=== PATIENT | female | born 1965 | race Caucasian/White ===

== ENCOUNTER → 2017-01-12 | Day surgery (SDC) | payer MEDICARE, MEDICAID ==
[2015-11-13 15:00] VITALS: BP 126/61
[~2017-01-12] MED LIST: ALOG1TAB8 PO; ALPR2TAB2 PO; CLIN150C14 PO; CLIN60LO2 TP; DAPA5TAB PO; DULO60CA6 PO; FAMO-63 PO; HYDR-2758 PO; IPRA4AER IH; LIDOCAINE 1%/EPI 1:100,000 20 ML VIAL. INJ ONE; LIDOCAINE 1%/EPI 1:100,000 20 ML VIAL. ONE; LISI10TA2 PO; ONDA4TAB10 SL; OXYC30TA PO; OXYC40TA21 PO
--- NOTE | 2017-01-12 12:13 | PDOC ---
SURGICAL PROGRESS NOTE Subjective Op Note: surgeon..............................................Clement Pre and post op diag...........................Mass groin groin just to the left and lateral to the labia on the left Anesthesia.........................................1%lidocaine with epi Procedure..........................................Exc mass pelvis/perineum Drains...............................................none fluids.................................................none Blood loss.........................................5cc condition...........................................satisfactory BONIFACIO MELCHOR MD Jan 12, 2017 12:13
--- NOTE | 2017-01-12 12:25 | PDOC1 ---
History and Physical Date of Admission Date of Admission DATE: 01/12/17 TIME: 12:17 History of Present Illness History of Present Illness Recurring mass swith pain perineum just to the left of the labia. Has gone on for months Past Medical History Cardiovascular: No pertinent hx, HTN Pulmonary: No pertinent hx, COPD, Other CENTRAL NERVOUS SYSTEM: Carpal Tunnel Syndrome Heme/Onc: No pertinent hx Psych: Anxiety, Bipolar, Depression Musculoskeletal: low back pain Endocrine: Diabetes Past Surgical History Past Surgical History: Cholecystectomy, , Hysterectomy, Other Current Medications Current Medications Current Medications Lidocaine/ Epinephrine (Xylocaine 1%-Epi 1:100,000) 20 ml STK-MED ONCE .ROUTE ; Start 01/12/17 at 10:42; Stop 01/12/17 at 10:43; Status DC Lidocaine/ Epinephrine (Xylocaine 1%-Epi 1:100,000) 20 ml STK-MED ONCE .ROUTE ; Start 01/12/17 at 11:26; Stop 01/12/17 at 11:27; Status DC Active Scripts Active Clindamycin Hcl 150 Mg Capsule 2 Cap PO QID 10 Days Reported Hydrocodone-Apap 5-325 (Hydrocodone Bit/Acetaminophen) 1 Each Tablet 1 Tab PO Q4HRS PRN LAST DOSE GIVEN: DATE: TIME: NEXT DOSE DUE: DATE: TIME: Kazano 12.5-1,000 Mg Tablet (Alogliptin Jose/Metformin Hcl) 1 Each Tablet 1 Each PO DAILY Farxiga (Dapagliflozin Propanediol) 5 Mg Tablet 5 Mg PO DAILY Oxycodone Hcl 30 Mg Tablet 1 Tab PO Q6HRS Combivent Respimat Inhal (Ipratropium/Albuterol Sulfate) 4 Gm Aer.w.adap 2 Inh IH QID Xanax (Alprazolam) 2 Mg Tablet 1 Tab PO TID Lisinopril 10 Mg Tablet 1 Tab PO DAILY Allergies Allergies: Coded Allergies: Penicillins (Verified Allergy, Severe, Anaphylaxis, 01/12/17) venom-wasp (Verified Allergy, Severe, Anaphylaxis, 01/12/17) morphine (Verified Allergy, Intermediate, Hives, 01/12/17) patient said she can't have this d/t decrease in saturations Physical Exam Physical Exam ?the is at this time a non infected mass 3-4 cm just lateral to the left labia. Not Bartholins. It has recurred on an off for months. d Lungs: Clear to auscultation Breasts: Normal Abdomen: Normal bowel sounds Male Genitals Exam: normal genitalia, normal prostate Rectal Exam: other PELVIC: Masses, Swelling Extremities: No clubbing, No cyanosis, No edema, Normal pulses, No tenderness/ swelling VTE Prophylaxis Ordered VTE Prophylaxis Devices: No VTE Pharmacological Prophylaxi: No BONIFACIO MELCHOR MD Jan 12, 2017 12:25
--- NOTE | 2017-01-12 12:59 | OP ---
DATE OF SURGERY: 01/12/2017 SURGEON: Júnior Melchor MD PREOPERATIVE DIAGNOSIS: Mass of the perineum/pelvis just to the left of the left labia. ANESTHESIA: 1% lidocaine with epinephrine. POSTOPERATIVE DIAGNOSIS: Mass of the perineum/pelvis just to the left of the left labia. PROCEDURE: Excision mass, perineum. TECHNIQUE: Under local anesthesia, using 1% Xylocaine, the area had been prepped with Betadine solution and draped in a routine fashion. With the patient services assistant holding the vulva over in a patient in a frogleg position, we made an incision following an oblique fashion over the mass. We carried it around in a fusiform fashion and what had been anesthetized. We then went into the skin and the mass, which was in the subcutaneous, was totally identified and totally removed using Metzenbaum scissors. We took a wide area around it. This was sent to pathology. The resultant defect did bleed and pressure was used to control the bleeding. A 4-0 Vicryl was used to close the deeper structures and an interrupted 5-0 subcuticular Vicryl was used to close the skin. The procedure was terminated as the dressing was applied. ESTIMATED BLOOD LOSS: Probably 4-5 mL. DRAINS: No drains were used. FLUIDS GIVEN: None. CONDITION OF THE PATIENT: Satisfactory as she is returned to the recovery room. JÚNIOR MELCHOR MD DR: OCTAVIO/isaiah JOB#: [id number] / [id number] JOSE
--- NOTE | 2017-01-12 12:59 | HP ---
ADMIT DATE: 01/12/2017 HISTORY OF PRESENT ILLNESS: The patient had hidradenitis, had it treated and had been doing well. Now, she has for the last 2-3 months a mass in the groin which swells up, gets infected, ruptures and then goes away. She states she puts cream on it from her primary care doctor and that sometimes helps, otherwise comes and goes. PAST MEDICAL HISTORY: Shows normal childhood diseases. She does have hypertension and also takes oral hypoglycemics for diabetes. SOCIAL HISTORY: She has been a drug user, but has not used any in 7 years though she does smoke 2 packs of cigarettes per day and uses no drugs and does not drink. ALLERGIES: SHE IS ALLERGIC TO PENICILLIN AND THE SURGERY. PAST SURGICAL HISTORY: Shows a cholecystectomy and a hysterectomy. She also has had various abscesses removed. The patient has 2 children and otherwise has been doing relatively well. PHYSICAL EXAMINATION: GENERAL: Shows an obese female in no acute distress. HEAD, EYES, NOSE AND THROAT: Grossly normal. CHEST AND HEART: Unremarkable at this point and with normal breath sounds and no murmurs, heaves or friction rubs. EXTREMITIES: Grossly normal. PELVIC: Not done, but she does have about a 1-2 cm mass just to the left of the vulva on the left. It is not infected at this point, but is definitely a mass there. EXTREMITIES: Grossly normal. IMPRESSION: 1. Diabetes. 2. Hypertension. 3. 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 BONIFACIO MELCHOR MD DR: OCTAVIO/isaiah JOB#: [id number] / [id number] JOSE
--- NOTE | 2017-01-13 17:16 | PATHOLOGY ---
PATHOLOGY REPORT * * * * * * * * FINAL DIAGNOSIS: Skin and subcutaneous tissue, left pelvic mass: - Epidermal inclusion cyst, with marked acute and chronic inflammation and surrounding fibrosis. COMMENT: There is no evidence of malignancy. (JPM:; 01/13/2017) REPORT ELECTRONICALLY SIGNED BY: Rancho Tucker M.D. DATE/TIME: 01/13/2017 17:15 * * * * * * * * GROSS PATHOLOGY: Received in formalin labeled "Billie Michelle mass pelvis" is a 3.8 x 2.5 x 1.3 cm partially disrupted portion of jaimes-brown skin and underlying yellow lobulated fibroadipose tissue. The resection margin is inked black. The specimen is serially sectioned to reveal a jaimes-white fibrotic cut surface without a definitive lesion or mass. Chef Teacher sections of the specimen are submitted in cassette A1. ([facility]; 01/12/2017) INITIAL CPT CODE(S): 17670 Professional services performed [place] [facility] [address] Technical services performed by [facility] at [address] [place] [address]. SPECIMEN(S) RECEIVED: A.Mass pelvis-left CLINICAL HISTORY: Mass-pelvis PATIENT: BILLIE MICHELLE /AGE: 5 1965 (Age: 51) PATIENT #: [id number] ALT CASE #: SPECIMEN COLLECTION DATE: 01/12/2017 SPECIMEN RECEIVED DATE: 01/12/2017 [facility] - [address] [place] [address] - PHONE: [phone] * * * END OF REPORT * * *
== END | disposition home or self-care (01) ==
LOC: SURG 10:21
PROVIDERS: ATTEND Specialist
DX: L72.0 Epidermal cyst (principal); E11.42 Type 2 diabetes mellitus with diabetic polyneuropathy; J44.9 Chronic obstructive pulmonary disease, unspecified; I10 Essential (primary) hypertension; E78.00 Pure hypercholesterolemia, unspecified; F41.9 Anxiety disorder, unspecified; F17.200 Nicotine dependence, unspecified, uncomplicated; F32.9 Major depressive disorder, single episode, unspecified; Z90.710 Acquired absence of both cervix and uterus; Z86.69 Personal history of other diseases of the nervous system and sense organs; Z72.0 Tobacco use; Z86.39 Personal history of other endocrine, nutritional and metabolic disease; Z88.6 Allergy status to analgesic agent; Z88.0 Allergy status to penicillin; Z91.048 Other nonmedicinal substance allergy status
CPT/HCPCS: 11424; J3490; 88304

== ENCOUNTER → 2017-10-05 | Day surgery (SDC) | payer MEDICARE, MEDICAID ==
[~2017-10-05] MED LIST changes: -ALOG1TAB8 PO; -ALPR2TAB2 PO; -CLIN150C14 PO; -CLIN60LO2 TP; -DAPA5TAB PO; -DULO60CA6 PO; -FAMO-63 PO; -HYDR-2758 PO; -IPRA4AER IH; +IV RINGERS,LACTATED 1000ML 1,000 ML IV; +LIDOCAINE 1% PF 2 ML VIAL. ID; -LIDOCAINE 1%/EPI 1:100,000 20 ML VIAL. INJ ONE; -LIDOCAINE 1%/EPI 1:100,000 20 ML VIAL. ONE; +LIDOCAINE 2% PF Vial for OR 5 ML VIAL.; -LISI10TA2 PO; +MIDAZOLAM HCL/PF 2 MG/2 ML VIAL. IV; -ONDA4TAB10 SL; -OXYC30TA PO; -OXYC40TA21 PO; +PROPOFOL 40 ML IV; +fentaNYL PF VIAL 100 MCG/2 ML VIAL IV
[2017-10-05] MEDS: IV RINGERS,LACTATED 1000ML 1,000 ML IV (08:56)
== END | disposition home or self-care (01) ==
LOC: SURG 08:11
DX: K64.0 First degree hemorrhoids (principal); K21.0 Gastro-esophageal reflux disease with esophagitis; I10 Essential (primary) hypertension; J44.9 Chronic obstructive pulmonary disease, unspecified; G47.33 Obstructive sleep apnea (adult) (pediatric); E78.00 Pure hypercholesterolemia, unspecified; E11.39 Type 2 diabetes mellitus with other diabetic ophthalmic complication; H40.9 Unspecified glaucoma; E11.42 Type 2 diabetes mellitus with diabetic polyneuropathy; Z79.899 Other long term (current) drug therapy; E66.9 Obesity, unspecified; Z90.710 Acquired absence of both cervix and uterus; Z90.49 Acquired absence of other specified parts of digestive tract; Z98.890 Other specified postprocedural states; Z88.0 Allergy status to penicillin; Z88.5 Allergy status to narcotic agent; Z91.038 Other insect allergy status; M19.90 Unspecified osteoarthritis, unspecified site; F20.9 Schizophrenia, unspecified; F31.9 Bipolar disorder, unspecified; F41.9 Anxiety disorder, unspecified; F17.200 Nicotine dependence, unspecified, uncomplicated; Z86.14 Personal history of Methicillin resistant Staphylococcus aureus infection; Z82.49 Family history of ischemic heart disease and other diseases of the circulatory system; Z79.84 Long term (current) use of oral hypoglycemic drugs
CPT/HCPCS: 43239; 45378; 88305; J2001; J2704

== ENCOUNTER → 2017-10-15 | Outpatient (CLI) | payer MEDICARE, MEDICAID ==
[2017-10-05 09:44] VITALS: BP 139/62
[~2017-10-15] MED LIST changes: +ALOG1TAB8 PO; +ALPR2TAB2 PO; +CLIN150C14 PO; +CLIN60LO2 TP; +DAPA5TAB PO; +DULO60CA6 PO; +FAMO-63 PO; +GABA-585 PO; +GLYB5TAB3 PO; +HYDR-2758 PO; +IPRA4AER IH; -IV RINGERS,LACTATED 1000ML 1,000 ML IV; -LIDOCAINE 1% PF 2 ML VIAL. ID; -LIDOCAINE 2% PF Vial for OR 5 ML VIAL.; +LISI10TA2 PO; +LOVA20TA2 PO; -MIDAZOLAM HCL/PF 2 MG/2 ML VIAL. IV; +ONDA4TAB10 SL; +OXYC10SY PO; +OXYC30TA PO; +OXYC40TA21 PO; -PROPOFOL 40 ML IV; +TIOT18CA IH; +VARE1TAB21 PO; +farxiga; -fentaNYL PF VIAL 100 MCG/2 ML VIAL IV
--- NOTE | 2017-10-19 08:32 | RAD ---
DATE: 10/15/2017 2:00 AM EXAM: MAMMO CHARLES SCREENING BILATERAL HISTORY: routine screening evaluation. COMPARISON: 09/17/2014 Bilateral CC and MLO views of the breasts were performed. Bilateral breast tomosynthesis was performed in CC and MLO projections. This study was interpreted with the benefit of Computerized Aided Detection (CAD ). Breast Density: The breast parenchyma is primarily fatty replaced. Breast parenchyma level density A. FINDINGS: No suspicious masses, microcalcifications or architectural distortion is present to suggest malignancy in either breast. The visualized axillae are unremarkable. IMPRESSION: No mammographic evidence of malignancy. BI-RADS CATEGORY: 1 NEGATIVE RECOMMENDED FOLLOW-UP: 12M 12 MONTH FOLLOW-UP Annual screening mammography is recommended, unless clinically indicated sooner based on symptoms or change in physical exam. PQRS compliance statement: Patient information was entered into a reminder system with a target due date for the next mammogram. Mammography is a sensitive method for finding small breast cancers, but it does not detect them all and is not a substitute for careful clinical examination. A negative mammogram does not negate a clinically suspicious finding and should not result in delay in biopsying a clinically suspicious abnormality. "Our facility is accredited by the [employer] Mammography Program." MTDD
== END | disposition home or self-care (01) ==
LOC: MAMMO 12:43
PROVIDERS: ATTEND Family Medicine
DX: Z12.31 Encounter for screening mammogram for malignant neoplasm of breast (principal); I12.9 Hypertensive chronic kidney disease with stage 1 through stage 4 chronic kidney disease, or unspecified chronic kidney disease; E11.22 Type 2 diabetes mellitus with diabetic chronic kidney disease; N18.3 Chronic kidney disease, stage 3 (moderate); E78.5 Hyperlipidemia, unspecified; E78.00 Pure hypercholesterolemia, unspecified; I25.10 Atherosclerotic heart disease of native coronary artery without angina pectoris; Z87.09 Personal history of other diseases of the respiratory system; Z87.891 Personal history of nicotine dependence; Z86.14 Personal history of Methicillin resistant Staphylococcus aureus infection; Z86.39 Personal history of other endocrine, nutritional and metabolic disease; Z86.69 Personal history of other diseases of the nervous system and sense organs; Z79.899 Other long term (current) drug therapy; Z90.49 Acquired absence of other specified parts of digestive tract; Z90.89 Acquired absence of other organs; Z88.0 Allergy status to penicillin; Z88.8 Allergy status to other drugs, medicaments and biological substances; Z88.5 Allergy status to narcotic agent; Z88.6 Allergy status to analgesic agent; Z84.1 Family history of disorders of kidney and ureter; Z83.3 Family history of diabetes mellitus
CPT/HCPCS: 77063; 77067

== ENCOUNTER → 2017-10-28 | Outpatient (CLI) | payer MEDICARE, MEDICAID ==
[2017-10-05 09:44] VITALS: BP 139/62
--- NOTE | 2017-10-28 13:53 | RAD ---
EXAM: Nuclear gastric emptying scan. HISTORY: Pain and bloating. COMPARISON: None. TECHNIQUE: Serial static images were obtained over the stomach following oral administration of 2.0 mCi of 99m-Tc sulfur colloid. FINDINGS: The stomach empties into the small bowel without evidence of reflux in the area of the esophagus. The estimated time for half emptying of gastric contents, i.e. 'gastric emptying time' is 190 minutes (normal is 66 +/- 22 minutes). There is 59% retained tracer activity within the stomach at one hour, 69% retained tracer activity within the stomach at 2 hours, 56% retained tracer activity within the stomach at 3 hours, and 17% retained tracer activity within the stomach at 4 hours. IMPRESSION: Delayed gastric emptying with a half-time of 190 minutes. Electronically signed by: Virginia Davenport MD (10/28/2017 1:50 PM) [id number]
== END | disposition home or self-care (01) ==
LOC: NM 07:52
PROVIDERS: ATTEND Internal Medicine Gastroenterology
DX: K30 Functional dyspepsia (principal); I12.9 Hypertensive chronic kidney disease with stage 1 through stage 4 chronic kidney disease, or unspecified chronic kidney disease; E11.22 Type 2 diabetes mellitus with diabetic chronic kidney disease; N18.3 Chronic kidney disease, stage 3 (moderate); E78.5 Hyperlipidemia, unspecified; E78.00 Pure hypercholesterolemia, unspecified; J44.9 Chronic obstructive pulmonary disease, unspecified; K21.9 Gastro-esophageal reflux disease without esophagitis; Z87.891 Personal history of nicotine dependence; Z87.09 Personal history of other diseases of the respiratory system; Z86.14 Personal history of Methicillin resistant Staphylococcus aureus infection; Z86.39 Personal history of other endocrine, nutritional and metabolic disease; Z86.69 Personal history of other diseases of the nervous system and sense organs; Z90.49 Acquired absence of other specified parts of digestive tract; Z90.89 Acquired absence of other organs; Z68.41 Body mass index [BMI] 40.0-44.9, adult; Z88.8 Allergy status to other drugs, medicaments and biological substances; Z88.5 Allergy status to narcotic agent; Z88.6 Allergy status to analgesic agent; Z88.0 Allergy status to penicillin; Z82.49 Family history of ischemic heart disease and other diseases of the circulatory system; Z84.1 Family history of disorders of kidney and ureter; Z83.3 Family history of diabetes mellitus
CPT/HCPCS: 78264; A9541

== ENCOUNTER → 2018-08-30 | Outpatient (CLI) | payer OTHER ==
[2017-10-05 09:44] VITALS: BP 139/62
[~2018-08-30] MED LIST changes: -HYDR-2758 PO; +HYDR-2761 PO; -OXYC30TA PO; +OXYC30TA3 PO
--- NOTE | 2018-08-30 18:00 | RAD ---
Examination: LUMBAR SPINE 2-3V History: Back pain since 1990 Comparison/Correlation: None Findings: Three-view lumbar spine x-ray exam was performed. Right upper quadrant surgical clips are present. Alignment of the lumbar spine is normal. L3-4 disc space narrowing is mild with significant endplate spurring and sclerosis. Vertebral body heights are mostly adequate with slight decrease at L4 suggested. No fracture or bony destruction. Impression: Degenerative changes primarily at L3-4. Electronically signed by: Arik Rosas MD (08/30/2018 5:57 PM) [facility]
== END | disposition home or self-care (01) ==
LOC: RAD 09:18
PROVIDERS: ATTEND Surgery
DX: M47.816 Spondylosis without myelopathy or radiculopathy, lumbar region (principal); M48.061 Spinal stenosis, lumbar region without neurogenic claudication; G95.89 Other specified diseases of spinal cord
CPT/HCPCS: 72100

== ENCOUNTER 2020-07-28 13:07 | Emergency (ER) | payer MEDICARE, MEDICAID ==
[~2020-07-28] VITALS: Ht 185.4 cm; Wt 200.0 kg
[~2020-07-28 13:07] MED LIST changes: -CLIN150C14 PO; +CLIN150C15 PO; +LISI10TA16 PO; -LISI10TA2 PO; -farxiga; +farxiga PO
--- NOTE | 2020-07-28 14:14 | RAD ---
3 view study of the left knee Clinical indications: Left knee pain. FINDINGS: There is a nondisplaced fracture of the proximal left fibular epiphysis. No dislocation or lytic process is seen. There is mild degenerative spurring and joint space narrowing of the medial ti biofemoral joint compartment. No significant left knee joint effusion is seen. Prominent traction spu r of the inferior pole of the patella is seen. IMPRESSION: Nondisplaced fracture of the proximal left fibular epiphysis. Electronically signed by: Sammy Amanda MD (07/28/2020 2:11 PM) [id number]
[2020-07-28 15:46] LABS: BASO # 0.1 x10^3/uL (0.0-0.2); BASO % 1 % (0-3); EOS # 0.2 x10^3/uL (0.0-0.7); EOS % 2 % (0-3); HEMATOCRIT 40.7 % (36.0-47.0); HEMOGLOBIN 13.6 g/dL (12.0-15.5); LYMPH # 1.5 x10^3/uL (1.0-4.8); LYMPH % 14 % (24-48); MEAN CORPUSCULAR HEMOGLOBIN 31 pg (25-35); MEAN CORPUSCULAR HGB CONC 34 g/dL (31-37); MEAN CORPUSCULAR VOLUME 91 fL (79-100); MONO # 0.9 x10^3/uL (0.0-1.1); MONO % 8 % (0-9); NEUT # 8.5 x10^3/uL (1.8-7.7); NEUT % 76 % (31-73); PLATELET COUNT 224 x10^3/uL (140-400); RED BLOOD COUNT 4.47 x10^6/uL (3.50-5.40); RED CELL DISTRIBUTION WIDTH 14.4 % (11.5-14.5); WHITE BLOOD COUNT 11.2 x10^3/uL (4.0-11.0)
[2020-07-28 15:57] LABS: CREATININE 2.2 mg/dL (0.6-1.0); GFR 23.1; POTASSIUM 5.6 mmol/L (3.5-5.1)
--- NOTE | 2020-07-28 16:54 | RAD ---
CT Head W/O Contrast: History: Reason: MECHANICAL FALL / Spl. Instructions: / History: Comparison: none Axial images were obtained without contrast. The cardenas and white matter appears normal and symmetrical for the patients age. There is no mass effe ct, extraaxial fluid collections or hydrocephalus. There is no gross bleed. There is no focal loss of cardenas-white matter distinction to suggest acute ischemia, i.e. stroke. Impression: No acute findings. End impression End impression CT C-Spine without contrast: Clinical History: Reason: MECHANICAL FALL / Spl. Instructions: / History: Technique: Axial helical images of the cervical spine were obtained without contrast, axial coronal and sagittal reconstruction was performed. Findings: There is no loss of vertebral body stature. There is no prevertebral soft tissue swelling. The vert ebral bodies are well aligned. The C1-C2 relationship is normal. The visualized osseous structures a ppear normal. Evaluation of the central canal is limited without contrast. There is multiple posterio r disc bulges resulting in flattening of the thecal sac. There does not appear to be gross flattening of the cervical cord. There is moderate narrowing of multiple neuroforamen. There is 2.5 cm nodule in the left lobe of the thyroid. Impression: 1. No evidence of fracture or malalignment of the C-spine. Clinical correlation suggested. 2. 2.5 cm nodule left lobe of the thyroid. Recommend follow-up ultrasound of the thyroid as an outpat ient. End impression PQRS Compliance Statement: One or more of the following individualized dose reduction techniques were utilized for this examinat ion: 1. Automated exposure control 2. Adjustment of the mA and/or kV according to patient size 3. Use of iterative reconstruction technique Electronically signed by: Brian Biggs III, MD (07/28/2020 4:52 PM) [facility]
--- NOTE | 2020-07-28 17:04 | EKG ---
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
[2020-07-28] MEDS ORDERED: LIDO1ADH78 TP (17:53)
--- NOTE | 2020-07-28 17:54 | PHYS DOC ---
Past Medical History Past Medical History: Anxiety, Arthritis, Asthma, CAD, Depression, Diabetes- Type II, Hypertension, MRSA, Schizophrenia, Other Additional Past Medical Histor: SLEEP APNEA, NEUROPATHY, CHRONIC BACK PROBLEMS Past Surgical History: Appendectomy, Cholecystectomy, , Hysterectomy, Other Additional Past Surgical Histo: SWEAT GLAND REMOVAL Smoking Status: Current Every Day Smoker Alcohol Use: Occasionally Drug Use: None General Adult EDM: Chief Complaint: MECHANICAL FALL HPI: HPI: 55-year-old female with multiple comorbidities including morbid obesity, presents the ED with complaints of nonradiating left knee pain that started yesterday while patient was at her sister's home. Patient states she was walking when she twisted her left knee and felt as if it "bent backwards." Reports knocking her head on the side of the wall but did not lose consciousness. Is not on any anticoagulants. Does not influence of any alcohol or drugs. States pain is worsened with weightbearing. Patient states she was able to drive home but pain has been unbearable today. Reports she took hydrocodone before coming in. Review of Systems: Review of Systems: Constitutional: Denies fever or chills. [] Eyes: Denies change in visual acuity. [] HENT: Denies nasal congestion or sore throat. [] Respiratory: Denies cough or shortness of breath. [] Cardiovascular: Denies chest pain or edema. [] GI: Denies abdominal pain, nausea, vomiting, bloody stools or diarrhea. [] : Denies dysuria, saddle anesthesia, urinary or bowel retention or incontinence Musculoskeletal: Denies back pain or CVA tenderness Integument: Denies rash or diaphoresis Neurologic: Denies headache, neck pain, focal weakness or sensory changes. [] Endocrine: Denies polyuria or polydipsia. [] Lymphatic: Denies swollen glands. [] Psychiatric: Denies depression or anxiety. [] Heart Score: C/O Chest Pain: No Risk Factors: Risk Factors: DM, Current or recent (<one month) smoker, HTN, HLP, family history of CAD, obesity. Risk Scores: Score 0 - 3: 2.5% MACE over next 6 weeks - Discharge Home Score 4 - 6: 20.3% MACE over next 6 weeks - Admit for Clinical Observation Score 7 - 10: 72.7% MACE over next 6 weeks - Early Invasive Strategies Allergies: Allergies: Allergies Coded Allergies Type Severity Reaction Last Updated Verified Penicillins Allergy Severe Anaphylaxis 01/12/17 Yes venom-wasp Allergy Severe Anaphylaxis 01/12/17 Yes morphine Allergy Intermediate Hives 01/12/17 Yes Physical Exam: PE: Constitutional: Obese, in no acute distress, very drowsy in ED but easily awakens-irritable when waking HENT: Normocephalic, atraumatic, dry mucous membranes Eyes: PERRLA, EOMI, conjunctiva normal, no discharge. Neck: Normal range of motion, supple, no JVD, no midline neck pain Cardiovascular: S1/2 present, regular rhythm Lungs & Thorax: Speaking in full sentences, bilateral equal chest rise, no tachypnea or increased work of breathing Abdomen: soft, no tenderness, no rigidity or guarding, no pain with pelvic rock Skin: Warm, dry, no erythema, no rash. [] Extremities: No tenderness, no cyanosis, no unilateral lower extremity edema, ANGELA left leg 0.74, equal DP and PT pulses, anterior and posterior palpable knee pain with intact brachial pulses bilaterally, no obvious deformity of the knee, no pain at the hip Neurologic: Alert and oriented X 3, normal motor function, normal sensory function, no focal deficits noted. [] Psychologic: Affect normal, judgement normal, mood normal. [] Current Patient Data: Labs: Laboratory Tests Test 07/28/20 15:35 White Blood Count 11.2 x10^3/uL (4.0-11.0) H Red Blood Count 4.47 x10^6/uL (3.50-5.40) Hemoglobin 13.6 g/dL (12.0-15.5) Hematocrit 40.7 % (36.0-47.0) Mean Corpuscular Volume 91 fL (79-100) Mean Corpuscular Hemoglobin 31 pg (25-35) Mean Corpuscular Hemoglobin Concent 34 g/dL (31-37) Red Cell Distribution Width 14.4 % (11.5-14.5) Platelet Count 224 x10^3/uL (140-400) Neutrophils (%) (Auto) 76 % (31-73) H Lymphocytes (%) (Auto) 14 % (24-48) L Monocytes (%) (Auto) 8 % (0-9) Eosinophils (%) (Auto) 2 % (0-3) Basophils (%) (Auto) 1 % (0-3) Neutrophils # (Auto) 8.5 x10^3/uL (1.8-7.7) H Lymphocytes # (Auto) 1.5 x10^3/uL (1.0-4.8) Monocytes # (Auto) 0.9 x10^3/uL (0.0-1.1) Eosinophils # (Auto) 0.2 x10^3/uL (0.0-0.7) Basophils # (Auto) 0.1 x10^3/uL (0.0-0.2) Sodium Level 140 mmol/L (136-145) Potassium Level 5.6 mmol/L (3.5-5.1) H Chloride Level 104 mmol/L (98-107) Carbon Dioxide Level 28 mmol/L (21-32) Anion Gap 8 (6-14) Blood Urea Nitrogen 58 mg/dL (7-20) H Creatinine 2.2 mg/dL (0.6-1.0) H Estimated GFR (Cockcroft-Gault) 23.1 Glucose Level 184 mg/dL (70-99) H Calcium Level 9.0 mg/dL (8.5-10.1) Laboratory Tests 07/28/20 15:35 Laboratory Tests 07/28/20 15:35 Vital Signs: Vital Signs Date Time Temp Pulse Resp B/P (MAP) Pulse Ox O2 Delivery O2 Flow Rate FiO2 07/28/20 13:10 97.9 71 16 129/63 (85) 94 Room Air 97.9 EKG: EKG: [] Radiology/Procedures: Radiology/Procedures: IMAGING REPORT Signed PATIENT: DANIELA MICHELLE MACCOUNT: [id number] : 1965 LOCATION: ER AGE: 55 SEX: F EXAM STATUS: REG ER ORD. PHYSICIAN: MANUEL JEAN DO REASON: MECHANICAL FALL PROCEDURE: CT HEAD AND CERVICAL SPINE WO CT Head W/O Contrast: History: Reason: MECHANICAL FALL / Spl. Instructions: / History: Comparison: none Axial images were obtained without contrast. The cardenas and white matter appears normal and symmetrical for the patients age. There is no mass effect, extraaxial fluid collections or hydrocephalus. There is no gross bleed. There is no focal loss of cardenas-white matter distinction to suggest acute ischemia, i.e. stroke. Impression: No acute findings. End impression End impression CT C-Spine without contrast: Clinical History: Reason: MECHANICAL FALL / Spl. Instructions: / History: Technique: Axial helical images of the cervical spine were obtained without con trast, axial coronal and sagittal reconstruction was performed. Findings: There is no loss of vertebral body stature. There is no prevertebral soft tissue swelling. The vertebral bodies are well aligned. The C1-C2 relationship is normal. The visualized osseous structures appear normal. Evaluation of the central canal is limited without contrast. There is multiple posterior disc bulges resulting in flattening of the thecal sac. There does not appear to be gross flattening of the cervical cord. There is moderate narrowing of multiple neuroforamen. There is 2.5 cm nodule in the left lobe of the thyroid. Impression: 1. No evidence of fracture or malalignment of the C-spine. Clinical correlation suggested. 2. 2.5 cm nodule left lobe of the thyroid. Recommend follow-up ultrasound of the thyroid as an outpatient. End impression PQRS Compliance Statement: One or more of the following individualized dose reduction techniques were utilized for this examination: 1. Automated exposure control 2. Adjustment of the mA and/or kV according to patient size 3. Use of iterative reconstruction technique Electronically signed by: Mariely Francis III, MD (07/28/2020 4:52 PM) [facility] DICTATED and SIGNED BY: MARIELY FRANCIS III, MD DATE: 07/28/20 [id number] IMAGING REPORT Signed PATIENT: DANIELA MICHELLE MACCOUNT: [id number] : 1965 LOCATION: ER AGE: 55 SEX: F EXAM STATUS: PRE ER ORD. PHYSICIAN: MANUEL JEAN DO REASON: left knee pain PROCEDURE: KNEE LEFT 3V 3 view study of the left knee Clinical indications: Left knee pain. FINDINGS: There is a nondisplaced fracture of the proximal left fibular epip hysis. No dislocation or lytic process is seen. There is mild degenerative spurring and joint space narrowing of the medial tibiofemoral joint compartment. No significant left knee joint effusion is seen. Prominent traction spur of the inferior pole of the patella is seen. IMPRESSION: Nondisplaced fracture of the proximal left fibular epiphysis. Electronically signed by: Bubba Amanda MD (07/28/2020 2:11 PM) [id number] DICTATED and SIGNED BY: BUBBA AMANDA MD DATE: 07/28/20 [id number] IMAGING REPORT Signed PATIENT: DANIELA MICHELLE MACCOUNT: [id number] : 1965 LOCATION: ER AGE: 55 SEX: F EXAM STATUS: REG ER ORD. PHYSICIAN: MANUEL JEAN DO REASON: pain behind knee -dislocation? JERARDO AWARE. NC PROCEDURE: DUPLEX LOWER EXT ARTERIAL LEFT Left Lower Extremity Venous Doppler Ultrasound History: Reason: pain behind knee -dislocation? JERARDO AWARE. NC / Spl. Instructions: / History: Comparison: None Procedure: Color flow, duplex, spectral analysis and 2D images are obtained with and without compression in the area of the common femoral vein, superficial femoral vein - femoral vein junction, main femoral vein (superficial femoral vein) and popliteal vein. Veins of the proximal calf are also imaged. Findings: There is normal duplex flow, color flow and compressibility of all visualized vein segments. No evidence of deep venous thrombus is present. There is limited visualization of the PTV the and peroneal vein due to large body habitus. Impression: No evidence of DVT. End impression Bilateral lower extremity arterial duplex Doppler examination spectral analysis Sonographic examination left lower shoulders performed and multiple static images were obtained. In addition color Doppler was applied as well as arterial waveform spectral analysis. There is normal triphasic waveform above the knee bilaterally. There is biphasic waveform below the knee. IMPRESSION: No evidence of hemodynamically significant stenosis. Electronically signed by: Mariely Francis III, MD (07/28/2020 5:56 PM) [facility] DICTATED and SIGNED BY: MARIELY FRANCIS III, MD DATE: 07/28/20 [id number] 0 IMAGING REPORT Signed PATIENT: DANIELA MICHELLE MACCOUNT: [id number] : 1965 LOCATION: ER AGE: 55 SEX: F EXAM STATUS: REG ER ORD. PHYSICIAN: MANUEL JEAN DO REASON: pain behind knee -dislocation? JERARDO AWARE. NC PROCEDURE: VENOUS LOWER EXTREMITY LEFT Left Lower Extremity Venous Doppler Ultrasound History: Reason: pain behind knee -dislocation? JERARDO AWARE. NC / Spl. Instructions: / History: Comparison: None Procedure: Color flow, duplex, spectral analysis and 2D images are obtained with and without compression in the area of the common femoral vein, superficial femoral vein - femoral vein junction, main femoral vein (superficial femoral vein) and popliteal vein. Veins of the proximal calf are also imaged. Findings: There is normal duplex flow, color flow and compressibility of all visualized vein segments. No evidence of deep venous thrombus is present. There is limited visualization of the PTV the and peroneal vein due to large body habitus. Impression: No evidence of DVT. End impression Bilateral lower extremity arterial duplex Doppler examination spectral analysis Sonographic examination left lower shoulders performed and multiple static images were obtained. In addition color Doppler was applied as well as arterial waveform spectral analysis. There is normal triphasic waveform above the knee bilaterally. There is biphasic waveform below the knee. IMPRESSION: No evidence of hemodynamically significant stenosis. Electronically signed by: Mariely Francis III, MD (07/28/2020 5:56 PM) [facility] DICTATED and SIGNED BY: MARIELY FRANCIS III, MD DATE: 07/28/20 [id number] 0 Course & Med Decision Making: Course & Med Decision Making Pertinent Labs and Imaging studies reviewed. (See chart for details) Concern for left proximal fibular head fracture in the setting of morbid obesity, no blunt trauma. Left knee immobilizer provided. Letter patch for pain. Will avoid any further opioids given patient's drowsy mentation ED. On reevaluation patient more alert, interactive and reports she feels well to return home. Will discharge home with strict ED return precautions were given for severe pain, neurologic deficits, skin color changes or repeat head injury. Encouraged urgent outpatient follow-up with PMD and orthopedic surgery for definitive management. Life-threatening processes were considered but are low suspicion at this time, given history, physical exam and ED workup. Pt was educated on all prescription medications and adverse effects. All patient's questions were answered and pt was stable at time of discharge. Life/limb-threatening differential includes but is not limited to, avascular necrosis, septic arthritis, malignancy, compartment syndrome, fracture/ligamentous injury/overuse, decompression sickness, seronegative spondyloarthropathies, trauma including dislocation/fracture, Lyme disease, lupus, arthritis differentials, gout/pseudogout or decompression sickness. I spoken with the patient and her caregivers. I explained the patient's condition, diagnoses and treatment plan based on the information available to me at this time. I have answered the patient and her caregiver's questions and addressed any concerns. The patient and her caregivers have a good understanding of patient's diagnosis, condition and treatment plan as can be expected at this point. Vital signs have been stable. Patient's condition is stable and appropriate for discharge from the emergency department. Patient will pursue further outpatient evaluation with primary care physician or other designated or consulting physician as outlined in the discharge instructions. The patient and/or caregivers are agreeable to this plan of care and follow-up instructions have been explained in detail. The patient and/or caregivers have received these instructions in written form and have expressed an understanding of the discharge instructions. The patient and/or caregivers are aware that any significant change of condition or worsening of symptoms should prompt immediate return to this or the closest emergency department or call to 911. Alivia Disclaimer: [employer] Disclaimer: This electronic medical record was generated, in whole or in part, using a voice recognition dictation system. Departure Departure Impression: Primary Impression: Fracture of proximal end of left fibula Additional Impression: PAD (peripheral artery disease) Disposition: 01 HOME / SELF CARE / HOMELESS Condition: STABLE Referrals: TERRY ALTMAN MD (PCP) Within 7 days for reevaluation Patient Instructions: Fibular Fracture with Rehab-SportsMed Additional Instructions: FOLLOW UP WITH ORTHOPEDICS: For definitive management of left fibular head fracture Orthopaedic Sports Medicine Orthopaedic Surgery [facility] [address] [place] [address] OR [facility] [address] [place] [address] EMERGENCY DEPARTMENT GENERAL DISCHARGE INSTRUCTIONS Thank you for coming to [facility] Emergency Department (ED) today and trusting us with you care. We trust that you had a positive experience in our Emergency Department. If you wish to speak to the department management, you may call the Director at [phone]. YOUR FOLLOW UP INSTRUCTIONS ARE FOLLOWS: 1. Do you have a private Doctor? If you do not have a private doctor, please ask for a resource list of physicians or clinics that may be able to assist you with follow up care. 2. The Emergency Physicain has interpreted your x-rays. The X-Ray specialist will also review them. If there is a change in the findings, you will be notified in 48 hours when at all possible. 3. A lab test or culture has been done, your results will be reviewed and you will be notified if you need a change in treatment. ADDITIONAL INSTRUCTIONS AND INFORMATION: 1. Your care today has been supervised by a physician who is specially trained in emergency care. Many problems require more than one evaluation for a complete diagnosis and treatment. We recommend that you schedule your follow up appointment as recommended to ensure complete treatment of you illness or injury. If you are unable to obtain follow up care and continue to have a problem, or if your condition worsens, we recommend that you return to the ED. 2. We are not able to safely determine your condition over the phone nor are we able to give sound medical advice over the phone. For these safety reasons, if you call for medical advice we will ask you to come to the ED for further evaluation. 3. If you have any questions regarding these discharge instructions please call the ED at [phone]. SAFETY INFORMATION: In the interest of safety, wellness, and injury prevention; we encourage you to wear your sealbelt, if you smoke; quite smoking, and we encourage family to use a protective helmet for bicycling and other sporting events that present an increased risk for head injury. IF YOUR SYMPTOMS WORSEN OR NEW SYMPTOMS DEVELOP, OR YOU HAVE CONCERNS ABOUT YOUR CONDITION; OR IF YOUR CONDITION WORSENS WHILE YOU ARE WAITING FOR YOUR FOLLOW UP APPOINTMENT; EITHER CONTACT YOUR PRIMARY CARE DOCTOR, THE PHYSICIAN WHOSE NAME AND NUMBER YOU WERE GIVEN, OR RETURN TO THE ED IMMEDIATELY. Scripts Lidocaine (Lido Jean Paul) 1 Each Adh..patch 1 EACH TP DAILY for 5 Days, #5 PATCH Apply 1 patch for 12 hours, remove for another 12 hours. May repeat, 1 patch per day as instructed above. Prov: MANUEL JEAN DO 07/28/20 MANUEL JEAN DO July 28, 2020 17:54
--- NOTE | 2020-07-28 17:58 | RAD ---
Left Lower Extremity Venous Doppler Ultrasound History: Reason: pain behind knee -dislocation? JERARDO AWARE. NC / Spl. Instructions: / History: Comparison: None Procedure: Color flow, duplex, spectral analysis and 2D images are obtained with and without compress ion in the area of the common femoral vein, superficial femoral vein - femoral vein junction, main fe moral vein (superficial femoral vein) and popliteal vein. Veins of the proximal calf are also imaged. Findings: There is normal duplex flow, color flow and compressibility of all visualized vein segments. No evide nce of deep venous thrombus is present. There is limited visualization of the PTV the and peroneal vein due to large body habitus. Impression: No evidence of DVT. End impression Bilateral lower extremity arterial duplex Doppler examination spectral analysis Sonographic examination left lower shoulders performed and multiple static images were obtained. In a ddition color Doppler was applied as well as arterial waveform spectral analysis. There is normal triphasic waveform above the knee bilaterally. There is biphasic waveform below the k nee. IMPRESSION: No evidence of hemodynamically significant stenosis. Electronically signed by: Brian Biggs III, MD (07/28/2020 5:56 PM) [facility]
[2020-07-28] MEDS ORDERED: LIDOCAINE (700MG/PATCH) PATCH. TD ONE (18:30)
[2020-07-28 19:45] VITALS: BP 164/88
[2020-07-29] MEDS ORDERED: CHOL500016 PO (07:36)
[2020-07-29] MEDS ORDERED: NYST15CR2 TP (07:36)
[2020-07-29] MEDS ORDERED: MUPI22OI2 TP (07:36)
[2020-07-29] MEDS ORDERED: DULO60CA6 PO (07:36)
[2020-07-29] MEDS ORDERED: NICO1PAT21 TP (07:36)
[2020-07-29] MEDS ORDERED: ALPR1TAB6 PO (07:36)
[2020-07-29] MEDS ORDERED: CLIN45GE TP (07:36)
[2020-07-29] MEDS ORDERED: OMEP40CA45 PO (07:36)
[2020-07-29] MEDS ORDERED: DULA0.75 SQ (23:30)
== END 2020-07-28 19:45 | disposition home or self-care (01) ==
LOC: ER 13:07
DX: S82.492A Other fracture of shaft of left fibula, initial encounter for closed fracture (principal); I73.9 Peripheral vascular disease, unspecified; J45.909 Unspecified asthma, uncomplicated; I10 Essential (primary) hypertension; F20.9 Schizophrenia, unspecified; Z86.14 Personal history of Methicillin resistant Staphylococcus aureus infection; I25.10 Atherosclerotic heart disease of native coronary artery without angina pectoris; E11.40 Type 2 diabetes mellitus with diabetic neuropathy, unspecified; G89.29 Other chronic pain; F17.200 Nicotine dependence, unspecified, uncomplicated; Z88.0 Allergy status to penicillin; Z88.5 Allergy status to narcotic agent; Z91.038 Other insect allergy status; W18.39XA Other fall on same level, initial encounter; Y93.89 Activity, other specified; Y92.89 Other specified places as the place of occurrence of the external cause; Y99.8 Other external cause status
CPT/HCPCS: 36415; 70450; 72125; 73562; 80048; 85025; 93005; 93926; 93971; 99285; P9612

== ENCOUNTER 2020-07-29 22:02 | Inpatient (IN) | payer MEDICARE, MEDICAID ==
[~2020-07-29] VITALS: Ht 185.4 cm; Wt 147.4 kg
[~2020-07-29 22:02] MED LIST changes: +ALPR1TAB6 PO; +CHOL500016 PO; +CLIN45GE TP; +LIDO1ADH78 TP; +MUPI22OI2 TP; +NICO1PAT21 TP; +NYST15CR2 TP; +OMEP40CA7 PO
[2020-07-29 22:30] VITALS: BP 134/74
--- NOTE | 2020-07-29 22:30 | NUR ---
Patient arrived per wheelchair to room 436. Patient to be readmitted to [facility]. Patient had left earlier today AMA. Patient was upset about not getting her pain and anxiety medication earlier today and she went to Dr. Cano's office after she left here and Dr. Cano wanted her to be readmitted. Patient needs to spend 3 midnight's in the hospital before she can be placed in a rehab unit for therapy. Admitting diagnosis: Left fibula fracture from 2 days ago. The fracture is non-surgical. Patient has a immobilizer on her left leg. Patient is alert and oriented x4. Patient is anxious. Patient c/o pain with movement of her left leg. Patient is able to stand and pivot to a sitting position to her bed using a walker. Patient is in no acute distress at this time.
[2020-07-29] MEDS ORDERED: NON FORMULARY ITEM (Tiotropium Bromide (Spiriva) 2 INH) IH SCH (23:30)
[2020-07-29] MEDS ORDERED: DULA0.75 SQ (23:30)
[2020-07-29] MEDS: ALPRAZolam 1 MG TABLET PO PRN (23:36)
[2020-07-30] MEDS: NICOTINE 21MG PATCH. TD SCH ×2 (00:06→11:11)
[2020-07-30] MEDS ORDERED: DEXTROSE 50% 25 GM / 50ML DISP.SYRIN. IV PRN (00:30)
[2020-07-30 03:00] VITALS: BP 161/69
[2020-07-30 05:37] LABS: BASO % 0 % (0-3); EOS # 0.2 x10^3/uL (0.0-0.7); EOS % 3 % (0-3); HEMOGLOBIN 12.4 g/dL (12.0-15.5); LYMPH # 2.8 x10^3/uL (1.0-4.8); LYMPH % 28 % (24-48); MEAN CORPUSCULAR HEMOGLOBIN 31 pg (25-35); MEAN CORPUSCULAR HGB CONC 34 g/dL (31-37); MEAN CORPUSCULAR VOLUME 92 fL (79-100); MONO # 0.9 x10^3/uL (0.0-1.1); MONO % 9 % (0-9); NEUT # 5.9 x10^3/uL (1.8-7.7); NEUT % 60 % (31-73); PLATELET COUNT 208 x10^3/uL (140-400); RED BLOOD COUNT 4.04 x10^6/uL (3.50-5.40); RED CELL DISTRIBUTION WIDTH 14.7 % (11.5-14.5); WHITE BLOOD COUNT 9.9 x10^3/uL (4.0-11.0)
[2020-07-30 07:00] VITALS: BP 146/68
[2020-07-30] MEDS: IPRATRPIUM/ALBUTEROL 0.5/2.5MG 3 ML NEBU. NEB SCH ×5 (07:42→20:43)
[2020-07-30] MEDS: INSULIN LISPRO 300 UNITS/3 ML VIAL. SQ SCH ×3 (08:00→17:14)
[2020-07-30] MEDS: FARXIGA PO SCH (09:00)
[2020-07-30] MEDS: [UNRECOGNIZED DRUG - OTHER] TP SCH (09:00)
[2020-07-30] MEDS: BENZOYL PEROX TP SCH (09:00)
[2020-07-30] MEDS: CLINDAMYCIN PHOS TP SCH (09:00)
[2020-07-30] MEDS: glyBURIDE 5 MG TABLET PO SCH (09:36)
[2020-07-30] MEDS: metFORMIN 500 MG TABLET PO SCH (09:36)
[2020-07-30] MEDS: PANTOPRAZOLE 40 MG TABLET.DR. PO SCH (09:36)
[2020-07-30] MEDS: GABAPENTIN 300 MG CAPSULE. PO SCH ×3 (09:37→21:23)
[2020-07-30] MEDS: DULoxetine HCL 30 MG CAPSULE.DR PO SCH (09:37)
[2020-07-30] MEDS: LISINOPRIL 20 MG TABLET PO SCH (09:37)
[2020-07-30] MEDS: NYSTATIN 100,000 UNIT/GM TOPICAL CREAM 15GM TUBE. TP SCH ×2 (09:38→21:27)
[2020-07-30] MEDS: CHOLECALCIFEROL (VITAMIN D3) 1,000 UNIT TABLET PO SCH (09:38)
[2020-07-30] MEDS: LINAGLIPTIN 5 MG TABLET PO SCH (09:38)
[2020-07-30] MEDS: TRIAMCINOLONE ACETONIDE 0.1% TOPICAL CREAM 15GM TUBE. TP SCH ×2 (09:39→21:26)
[2020-07-30] MEDS: MUPIROCIN 2 % NASAL OINTMENT 22GM TUBE. TP SCH ×3 (09:39→21:27)
[2020-07-30 10:20] VITALS: BP 157/62
--- NOTE | 2020-07-30 10:21 | NUR ---
SW following. Discussed with RN, pt from home alone, room air, ada diet. Pt left AMA yesterday. SW requested COVID for SNF placement. SW to discuss with pt RE SNF after therapy sees pt. SW will continue to follow.
[2020-07-30] MEDS: ALPRAZolam 1 MG TABLET PO PRN ×2 (11:03→21:23)
[2020-07-30 14:15] VITALS: BP 170/73
--- NOTE | 2020-07-30 16:31 | NUR ---
Wound Care Wound Type/Assessment: Pt seen for wound care consultation re: R leg cellulitis and ulceration. Right lower leg is reddened and warm, with an ulceration and some satelite puncture sites, wound bed is dusky red and sloughy. Treatment Recommendations/Plan: Medihoney gel, covered with Xeroform gauze and a foam dressing, change every 3 days. No other wounds noted on full skin inspection, but pt had reddened area in intergluteal cleft, Nystatin cream applied. Education provided: to pt re: POC. Offloading surface/device: n/a Recommended Referrals/Tests: n/a Discharge Recommendations for dressings: see treatment plan above, and pt would benefit from f/u in the [facility] after d/c.
[2020-07-30 19:00] VITALS: BP 148/80
[2020-07-30] MEDS: ATORVASTATIN CALCIUM 10 MG TABLET. PO SCH (21:23)
[2020-07-30] MEDS: SUCRALFATE 1 GM TABLET. PO SCH (21:55)
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
[2020-07-30 23:00] VITALS: BP 127/55
--- NOTE | 2020-07-31 00:20 | RAD ---
Examination: LEFT LOWER EXTREMITY - UNILATERAL VENOUS DOPPLER Technique: Ultrasound evaluation of the left lower extremity was performed from the groin to the uppe r calf with townsend scale, spectral and color doppler evaluation. Indication: Leg swelling Comparison: None Findings: There is normal venous flow and compressibility of left common femoral vein, femoral vein, popliteal vein, and visualized proximal calf veins. Impression: No evidence for deep vein thrombosis of left lower extremity from the level of the calf v eins to the groins. Electronically signed by: Issac Mcneil MD (07/31/2020 12:17 AM) [facility]
[2020-07-31 01:33] LABS: HEMOGLOBIN A1C 8.3 % (4.8-5.6)
[2020-07-31 03:00] VITALS: BP 149/89
[2020-07-31 05:50] LABS: ALBUMIN 2.9 g/dL (3.4-5.0); ALBUMIN/GLOBULIN RATIO 0.6 (1.0-1.7); CALCIUM 8.9 mg/dL (8.5-10.1); CREATININE 2.4 mg/dL (0.6-1.0); GFR 20.9; POTASSIUM 5.4 mmol/L (3.5-5.1); TOTAL BILIRUBIN 0.3 mg/dL (0.2-1.0); TOTAL PROTEIN 7.8 g/dL (6.4-8.2)
[2020-07-31] MEDS: SUCRALFATE 1 GM TABLET. PO SCH ×2 (05:54→17:07)
[2020-07-31] MEDS: PANTOPRAZOLE 40 MG TABLET.DR. PO SCH (05:54)
[2020-07-31 07:00] VITALS: BP 154/67
[2020-07-31] MEDS: IPRATRPIUM/ALBUTEROL 0.5/2.5MG 3 ML NEBU. NEB SCH (07:23)
[2020-07-31] MEDS: INSULIN LISPRO 300 UNITS/3 ML VIAL. SQ SCH ×3 (08:00→17:00)
[2020-07-31] MEDS: glyBURIDE 5 MG TABLET PO SCH (08:14)
[2020-07-31] MEDS: CHOLECALCIFEROL (VITAMIN D3) 1,000 UNIT TABLET PO SCH (08:15)
[2020-07-31] MEDS: DULoxetine HCL 30 MG CAPSULE.DR PO SCH (08:15)
[2020-07-31] MEDS: LISINOPRIL 20 MG TABLET PO SCH (08:15)
[2020-07-31] MEDS: metFORMIN 500 MG TABLET PO SCH (08:15)
[2020-07-31] MEDS: LINAGLIPTIN 5 MG TABLET PO SCH (08:15)
[2020-07-31] MEDS: GABAPENTIN 300 MG CAPSULE. PO SCH ×3 (08:15→19:20)
[2020-07-31] MEDS: NICOTINE 21MG PATCH. TD SCH (08:17)
[2020-07-31] MEDS: MUPIROCIN 2 % NASAL OINTMENT 22GM TUBE. TP SCH ×3 (08:19→20:08)
[2020-07-31] MEDS: TRIAMCINOLONE ACETONIDE 0.1% TOPICAL CREAM 15GM TUBE. TP SCH ×2 (08:19→20:08)
[2020-07-31] MEDS: FARXIGA PO SCH (08:20)
[2020-07-31] MEDS: NYSTATIN 100,000 UNIT/GM TOPICAL CREAM 15GM TUBE. TP SCH ×2 (08:20→20:09)
[2020-07-31] MEDS: BENZOYL PEROX TP SCH (08:20)
[2020-07-31] MEDS: [UNRECOGNIZED DRUG - OTHER] TP SCH (08:20)
[2020-07-31] MEDS: CLINDAMYCIN PHOS TP SCH (08:20)
[2020-07-31 09:46] LABS: PROTHROMBIN TIME PATIENT 12.4 SEC (11.7-14.0)
[2020-07-31 09:51] LABS: CHOLESTEROL/HDL RATIO 5.2
--- NOTE | 2020-07-31 10:23 | NUR ---
SW following. Discussed with RN, pt transferring to [address] [place] [address] due to being COVID-19 positive. PT recommending SNF, pt declined OT. SW unable to find and SNF facilities taking COVID positive at this time. SW will continue to follow.
[2020-07-31 11:00] VITALS: BP 120/50
--- NOTE | 2020-07-31 11:15 | NUR ---
Patient is covid postiive, notified Kym Pedroza nursing slot floor supervisor. Patient transferred to room 673 and report given to JOHN Kee.
[2020-07-31 15:00] VITALS: BP 97/48
[2020-07-31 19:00] VITALS: BP 120/56
[2020-07-31] MEDS: ATORVASTATIN CALCIUM 10 MG TABLET. PO SCH (19:20)
[2020-07-31] MEDS: ALPRAZolam 1 MG TABLET PO PRN (19:20)
[2020-07-31 23:22] VITALS: BP 124/55
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
[2020-08-01 03:17] VITALS: BP 122/62
[2020-08-01 07:30] VITALS: BP 173/78
[2020-08-01] MEDS: INSULIN LISPRO 300 UNITS/3 ML VIAL. SQ SCH ×3 (08:32→17:00)
[2020-08-01] MEDS: PANTOPRAZOLE 40 MG TABLET.DR. PO SCH (08:33)
[2020-08-01] MEDS: CHOLECALCIFEROL (VITAMIN D3) 1,000 UNIT TABLET PO SCH (08:33)
[2020-08-01] MEDS: metFORMIN 500 MG TABLET PO SCH (08:33)
[2020-08-01] MEDS: LINAGLIPTIN 5 MG TABLET PO SCH (08:33)
[2020-08-01] MEDS: SUCRALFATE 1 GM TABLET. PO SCH ×2 (08:33→16:30)
[2020-08-01] MEDS: glyBURIDE 5 MG TABLET PO SCH (08:33)
[2020-08-01] MEDS: GABAPENTIN 300 MG CAPSULE. PO SCH ×3 (08:33→21:00)
[2020-08-01] MEDS: DULoxetine HCL 30 MG CAPSULE.DR PO SCH (08:33)
[2020-08-01] MEDS: TRIAMCINOLONE ACETONIDE 0.1% TOPICAL CREAM 15GM TUBE. TP SCH ×2 (08:34→21:00)
[2020-08-01] MEDS: NICOTINE 21MG PATCH. TD SCH (08:34)
[2020-08-01] MEDS: MUPIROCIN 2 % NASAL OINTMENT 22GM TUBE. TP SCH ×3 (08:34→21:00)
[2020-08-01] MEDS: LISINOPRIL 20 MG TABLET PO SCH (08:34)
[2020-08-01] MEDS: NYSTATIN 100,000 UNIT/GM TOPICAL CREAM 15GM TUBE. TP SCH ×2 (08:34→21:00)
[2020-08-01] MEDS: BENZOYL PEROX TP SCH (08:39)
[2020-08-01] MEDS: CLINDAMYCIN PHOS TP SCH (08:39)
[2020-08-01] MEDS: [UNRECOGNIZED DRUG - OTHER] TP SCH (08:39)
[2020-08-01] MEDS: FARXIGA PO SCH (08:39)
[2020-08-01 11:30] VITALS: BP 142/64
[2020-08-01 15:44] VITALS: BP 116/77
--- NOTE | 2020-08-01 16:13 | NUR ---
Rapid response called on patient at 1551. Dr. Browne was just walking out of patient's room, so rapid response was cancelled.
[2020-08-01 16:15] LABS: BASE EXCESS ABG -6 mmol/L (-3-3); HCO3 ABG 25 mmol/L (21-28); PO2 ABG 105 mmHg (75-108); SAT O2 ABG 97 % (92-99)
[2020-08-01 16:20] LABS: FIO2 ABG 100% NRBM; PCO2 ABG 77 mmHg (35-46)
--- NOTE | 2020-08-01 17:59 | NUR ---
due to patient being on Bipap and very out of it, dinner Carafate dose was held. This RN did not feel like the patient was alert enough to take anything orally. Dr. Crockett was called at 1745 and updated on the patients status. No orders given. Doctor will be on unit this evening to re-evaluate patient status.
[2020-08-01 19:00] VITALS: BP 146/61
[2020-08-01 20:27] LABS: BASE EXCESS ABG -5 mmol/L (-3-3); HCO3 ABG 24 mmol/L (21-28); PO2 ABG 73 mmHg (75-108); SAT O2 ABG 92 % (92-99)
[2020-08-01] MEDS: ATORVASTATIN CALCIUM 10 MG TABLET. PO SCH (21:00)
[2020-08-01 23:00] VITALS: BP 133/56
[2020-08-02 00:51] LABS: PCO2 ABG 65 mmHg (35-46)
[2020-08-02 00:52] LABS: FIO2 ABG 35
[2020-08-02 03:00] VITALS: BP 119/86
[2020-08-02 07:00] VITALS: BP 143/60
[2020-08-02] MEDS: SUCRALFATE 1 GM TABLET. PO SCH ×2 (07:30→16:30)
[2020-08-02] MEDS: PANTOPRAZOLE 40 MG TABLET.DR. PO SCH (07:30)
[2020-08-02 07:34] LABS: BASE EXCESS ABG -5 mmol/L (-3-3); HCO3 ABG 24 mmol/L (21-28); PO2 ABG 72 mmHg (75-108); SAT O2 ABG 92 % (92-99)
[2020-08-02 07:36] LABS: PCO2 ABG 68 mmHg (35-46)
[2020-08-02 07:37] LABS: FIO2 ABG 35
[2020-08-02] MEDS: metFORMIN 500 MG TABLET PO SCH (08:00)
[2020-08-02] MEDS: INSULIN LISPRO 300 UNITS/3 ML VIAL. SQ SCH ×3 (08:00→17:00)
[2020-08-02] MEDS: glyBURIDE 5 MG TABLET PO SCH (08:00)
[2020-08-02] MEDS: GABAPENTIN 300 MG CAPSULE. PO SCH ×3 (08:26→21:00)
[2020-08-02] MEDS: DULoxetine HCL 30 MG CAPSULE.DR PO SCH (08:26)
[2020-08-02] MEDS: LINAGLIPTIN 5 MG TABLET PO SCH (08:27)
[2020-08-02] MEDS: LISINOPRIL 20 MG TABLET PO SCH (08:27)
[2020-08-02] MEDS: CHOLECALCIFEROL (VITAMIN D3) 1,000 UNIT TABLET PO SCH (08:27)
[2020-08-02] MEDS: NICOTINE 21MG PATCH. TD SCH (08:27)
--- NOTE | 2020-08-02 08:36 | PDOC ---
PULMONARY PROGRESS NOTES DATE: 08/02/20 TIME: 08:36 Vitals Vital Signs Date Time Temp Pulse Resp B/P (MAP) Pulse Ox O2 Delivery O2 Flow Rate FiO2 08/02/20 07:25 94 08/02/20 07:00 98.2 90 22 143/60 (87) BiPAP/CPAP 98.2 08/01/20 15:44 2.0 General: Alert Lungs: Clear Cardiovascular: S1, S2 Abdomen: Soft Labs Laboratory Tests Test 07/31/20 11:54 07/31/20 16:56 07/31/20 20:14 08/01/20 07:53 Glucose (Fingerstick) 130 mg/dL (70-99) 106 mg/dL (70-99) 141 mg/dL (70-99) 209 mg/dL (70-99) Test 08/01/20 12:16 08/01/20 15:34 08/01/20 15:55 08/01/20 17:11 Glucose (Fingerstick) 89 mg/dL (70-99) 123 mg/dL (70-99) 126 mg/dL (70-99) O2 Saturation 97 % (92-99) Arterial Blood pH 7.13 (7.35-7.45) Arterial Blood pCO2 at Patient Temp 77 mmHg (35-46) Arterial Blood pO2 at Patient Temp 105 mmHg (75-108) Arterial Blood HCO3 25 mmol/L (21-28) Arterial Blood Base Excess -6 mmol/L (-3-3) FiO2 100% nrbm Test 08/01/20 20:00 08/01/20 21:22 08/02/20 07:20 08/02/20 07:31 O2 Saturation 92 % (92-99) 92 % (92-99) Arterial Blood pH 7.20 (7.35-7.45) 7.17 (7.35-7.45) Arterial Blood pCO2 at Patient Temp 65 mmHg (35-46) 68 mmHg (35-46) Arterial Blood pO2 at Patient Temp 73 mmHg (75-108) 72 mmHg (75-108) Arterial Blood pO2 (Temp corrected) mmHg Arterial Blood HCO3 24 mmol/L (21-28) 24 mmol/L (21-28) Arterial Blood Base Excess -5 mmol/L (-3-3) -5 mmol/L (-3-3) FiO2 35 35 Glucose (Fingerstick) 75 mg/dL (70-99) 80 mg/dL (70-99) Laboratory Tests Test 08/01/20 12:16 08/01/20 15:34 08/01/20 15:55 08/01/20 17:11 Glucose (Fingerstick) 89 mg/dL (70-99) 123 mg/dL (70-99) 126 mg/dL (70-99) O2 Saturation 97 % (92-99) Arterial Blood pH 7.13 (7.35-7.45) Arterial Blood pCO2 at Patient Temp 77 mmHg (35-46) Arterial Blood pO2 at Patient Temp 105 mmHg (75-108) Arterial Blood HCO3 25 mmol/L (21-28) Arterial Blood Base Excess -6 mmol/L (-3-3) FiO2 100% nrbm Test 08/01/20 20:00 08/01/20 21:22 08/02/20 07:20 08/02/20 07:31 O2 Saturation 92 % (92-99) 92 % (92-99) Arterial Blood pH 7.20 (7.35-7.45) 7.17 (7.35-7.45) Arterial Blood pCO2 at Patient Temp 65 mmHg (35-46) 68 mmHg (35-46) Arterial Blood pO2 at Patient Temp 73 mmHg (75-108) 72 mmHg (75-108) Arterial Blood pO2 (Temp corrected) mmHg Arterial Blood HCO3 24 mmol/L (21-28) 24 mmol/L (21-28) Arterial Blood Base Excess -5 mmol/L (-3-3) -5 mmol/L (-3-3) FiO2 35 35 Glucose (Fingerstick) 75 mg/dL (70-99) 80 mg/dL (70-99) Medications Active Scripts Medications Dose Route/Sig Max Daily Dose Days Date Category Trulicity (Dulaglutide) 0.75 Mg/0.5 Ml Pen.injctr 0.75 Mg SQ WEEKLY 07/29/20 Reported Vitamin D3 (Cholecalciferol (Vitamin D3)) 125 Mcg Tablet 125 Mcg PO DAILY 07/29/20 Reported Omeprazole 40 Mg Capsule.dr 1 Cap PO DAILY 07/29/20 Reported Nystatin-Triamcinolone Cream (Nystatin/Triamcin) 15 Gm Cream..g. 1 Jing TP BID 07/29/20 Reported Mupirocin Ointment (Mupirocin) 22 Gm Oint...g. 1 Jing TP TID 07/29/20 Reported NICODERM CQ 21mg (Nicotine) 1 Each Patch.td24 1 Patch TP DAILY 07/29/20 Reported Clind Ph-Benzoyl Perox 1.2-5% (Clindamycin Phos/Benzoyl Perox) 45 Gm Gel.er..g. 1 Jing TP DAILY 30 07/29/20 Reported Cymbalta (Duloxetine Hcl) 60 Mg Capsule.dr 2 Cap PO DAILY 07/29/20 Reported Alprazolam 1 Mg Tablet 1 Tab PO TID 07/29/20 Reported [farxiga] 5 Mg 1 Tab PO DAILY 10/05/17 Reported Oxycodone Hcl Immed.release (Oxycodone Hcl) 30 Mg Tablet 1 Tab PO Q4HRS 10/05/17 Reported Spiriva (Tiotropium [place]) 18 Mcg Cap.w.dev 2 Inh IH PRN 10/05/17 Reported Lovastatin 20 Mg Tablet 20 Mg PO HS 10/05/17 Reported [place] 12.5-1,000 Mg Tablet (Alogliptin Jose/Metformin Hcl) 1 Each Tablet 1 Each PO DAILY 11/11/15 Reported Combivent Respimat Inhal (Ipratropium/Albuterol Sulfate) 4 Gm Aer.w.adap 2 Inh IH QID 03/13/15 Reported Impression . RESP/MET ACIDOSIS COVID 19 VRIAL PNEUMONIA MET/TOXIC ENCE SEE ORDERS KAIN EASTON MD Aug 02, 2020 08:36
[2020-08-02] MEDS: MUPIROCIN 2 % NASAL OINTMENT 22GM TUBE. TP SCH ×3 (09:00→21:47)
[2020-08-02] MEDS ORDERED: NON FORMULARY ITEM SQ SCH (09:00)
[2020-08-02] MEDS: NYSTATIN 100,000 UNIT/GM TOPICAL CREAM 15GM TUBE. TP SCH ×2 (09:00→21:47)
[2020-08-02] MEDS: TRIAMCINOLONE ACETONIDE 0.1% TOPICAL CREAM 15GM TUBE. TP SCH ×2 (09:00→21:47)
[2020-08-02 10:01] LABS: BASO % 0 % (0-3); EOS # 0.2 x10^3/uL (0.0-0.7); EOS % 2 % (0-3); HEMATOCRIT 35.8 % (36.0-47.0); HEMOGLOBIN 11.7 g/dL (12.0-15.5); LYMPH # 1.9 x10^3/uL (1.0-4.8); LYMPH % 19 % (24-48); MEAN CORPUSCULAR HEMOGLOBIN 30 pg (25-35); MEAN CORPUSCULAR HGB CONC 33 g/dL (31-37); MEAN CORPUSCULAR VOLUME 93 fL (79-100); MONO % 10 % (0-9); NEUT # 6.9 x10^3/uL (1.8-7.7); NEUT % 68 % (31-73); PLATELET COUNT 241 x10^3/uL (140-400); RED BLOOD COUNT 3.85 x10^6/uL (3.50-5.40); RED CELL DISTRIBUTION WIDTH 14.4 % (11.5-14.5); WHITE BLOOD COUNT 10.1 x10^3/uL (4.0-11.0)
[2020-08-02 10:15] LABS: CREATININE 2.1 mg/dL (0.6-1.0); GFR 24.4; MAGNESIUM 2.7 mg/dL (1.8-2.4); POTASSIUM 5.7 mmol/L (3.5-5.1)
[2020-08-02 11:00] VITALS: BP 138/62
--- NOTE | 2020-08-02 11:42 | NUR ---
SW following. Discussed with RN, pt now on a bipap, renal diet, COVID-19 positive. Therapy recommending SNF, however no facilities are taking COVID positive at this time. RN advised pt could potentially be transferred to the ICU. SW will continue to follow.
[2020-08-02] MEDS ORDERED: oxyCODONE IR 5 MG TABLET PO PRN (13:45)
[2020-08-02] MEDS ORDERED: ALPRAZolam 0.5 MG TABLET PO PRN (13:45)
--- NOTE | 2020-08-02 14:43 | PDOC ---
PROGRESS NOTES Date of Service DATE: 08/02/20 TIME: 13:49 Subjective Subjective Patient wearing Bipap/Cpap mask and as I entered room she was holding the tube that is supposed to be connected to both the machine and the mask, and neither was connected. In the past when she was agiven a Bipap appratus for home use due to sleep apnea with decrease in O2 sats she was unable to wear it as she stated that she tosses and turns and removes the mask when asleep. We have struggled with this for some time. She was alert when I asked her how she was doing, and she responded "they are trying to kill me" as she waved the tubing in front of us. I reassured her that that was not the case and that the nursing staff is trying to take the best care of her possible. In the middle of our visit with her nurse in attendance he niece/cousin Ed called and I answered the phone at patient's request. I explained that patient is having trouble maneuvering to get the phone and that I would recommend Ed call and ask for her nurse to get updates on [employer]. I will also call her as patient has given permission to relate all medical info to her. Ed called because she was having difficulty finding the landllady in to receive [employer]'s July payment. Billie was alert and oriented enough that she directed me to her phone and to her contacts and pointed out her luxlaromulo's phone number to give to Markie. She also instructed her not to leave the money in the drop box but to place it in an envelope under her locked office door. She had complained of some nausea on Wednesday and felt that the pantoperazole did not help. Today she is not haviong any nause but then she has not eaten since yesterdays episode of lethargy and O2 desaturaion.. She has also not gotten out of the bed since then and has spent pretty much all of the time laying in the bed. Today she did not get her AM meds as nursing thought she could possibly aspirate them as she was not wide awake earlier. she has also not received any of her oxycodone since yesterday morning and no alprazolam since yesterday AM. She is alert enough to tell me that she has peed all over herself and needs to be changed. Objective Objective Vital Signs Date Time Temp Pulse Resp B/P (MAP) Pulse Ox O2 Delivery O2 Flow Rate FiO2 08/02/20 11:00 98.0 82 22 138/62 (87) 95 BiPAP/CPAP 98.0 08/02/20 08:00 2.0 Intake and Output 08/02/20 07:00 Intake Total 0 ml Output Total 0 ml Balance 0 ml Intake Oral 0 ml Output Urine Total 0 ml Physical Exam Physical Exam She has difficulty speaking due to the mask and air flow. , but she tries to answer questions asked and also provides input about what she thinks is going on. For some reason she does not like her present nurse but this is not unusual for billie as she is very suspicious of most folks by nature for as long as I have known her. IHer lungs have decreased BS throughout. Her heart is regular with distant heart sounds. Her abdomen is soft, and non tender. I did not remove the right leg brace but note that her feet are less swollen than 2 days ago. The right lower leg dressing is in place and no erythema is visible around it. She has several ecchymotic lesions on both of her forearms which I assume occurred when she fell and injured her left knee on Wednesday. Neuro- she has a jerking movement of her arms that comes and goes and she has had this for some time as outpatient, seems more obvious today. Her strenghth overall is diminished compared to 2 days ago. Diagnosis DIAGNOSIS Sleep Apnea with hypoxemia COPD with CO2 retention Positive Covid test 3 days ago. Admitting diagnosis left nondisplaced proximal epiphyseal fracture of fibula with inability to ambulate and do self care. Type 2 diabetes with severe peripheral neuropathy. Hypertension. Chronic kidney Disease secondary to history of both senior living uncontrolled blood sugars and blood pressures. 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 OA multiple sites including spine, knees, ankles. Disability based on borderline cognitive function. Recent cat bite right lower leg. RESPIRATORY DISEASE: Other (hypoxemia and somnolence with elevated CO2 levels. concerned that she is at high risk for pneumonia with decreased mobility last 24 hours.) COPD: Chronic HYPERTENSION: Benign hypertension DIABETES: Type II (Uncontrolled) RENAL FAILURE: Chronic (CKD stage III) Assessment Assessment Patients BUN has increased as has her potassium. She is tolerating the BPAP/CPAP for now but will need to be monitored closely to make sure that she does not disable it. she is maintianing her O2 Sats at above 92 % for now with this. I am concerned that she will develop pneumonia so will ask nursing to make sure she is sitting up at least in bed several times a day.And will ask PT to encourage her to work with them. I appreciate Dr. Russo consult and continued care of this patient. I will ask Nephrology to consult to help with suggestions for maintaining her kidney function as well as it can be. Plan Plan of Care Consult Nephrology. Will decrease dose of her pain meds and can be PRN based on her level of alertness and pain. Have also decreased dose of her alprazolam. she does get very anxious so I do not think I can discontinue this but if she is lethargic will hold that dose. she is going to have a difficult time being isolated from her small family support group and she has had mental health issues for some time which may worsen given present scenario. I will try to encourage her cooperation, her staying calm, and a positive outlook. Comment Review of Relevant I have reviewed the following items savita (where applicable) has been applied.Todays labs, vital signs, I and O. and nursing notes and chris's progress note. Labs Laboratory Tests Test 07/31/20 16:56 07/31/20 20:14 08/01/20 07:53 08/01/20 12:16 Glucose (Fingerstick) 106 mg/dL (70-99) 141 mg/dL (70-99) 209 mg/dL (70-99) 89 mg/dL (70-99) Test 08/01/20 15:34 08/01/20 15:55 08/01/20 17:11 08/01/20 20:00 Glucose (Fingerstick) 123 mg/dL (70-99) 126 mg/dL (70-99) O2 Saturation 97 % (92-99) 92 % (92-99) Arterial Blood pH 7.13 (7.35-7.45) 7.20 (7.35-7.45) Arterial Blood pCO2 at Patient Temp 77 mmHg (35-46) 65 mmHg (35-46) Arterial Blood pO2 at Patient Temp 105 mmHg (75-108) 73 mmHg (75-108) Arterial Blood HCO3 25 mmol/L (21-28) 24 mmol/L (21-28) Arterial Blood Base Excess -6 mmol/L (-3-3) -5 mmol/L (-3-3) FiO2 100% nrbm 35 Arterial Blood pO2 (Temp corrected) mmHg Test 08/01/20 21:22 08/02/20 07:20 08/02/20 07:31 08/02/20 09:50 Glucose (Fingerstick) 75 mg/dL (70-99) 80 mg/dL (70-99) O2 Saturation 92 % (92-99) Arterial Blood pH 7.17 (7.35-7.45) Arterial Blood pCO2 at Patient Temp 68 mmHg (35-46) Arterial Blood pO2 at Patient Temp 72 mmHg (75-108) Arterial Blood HCO3 24 mmol/L (21-28) Arterial Blood Base Excess -5 mmol/L (-3-3) FiO2 35 White Blood Count 10.1 x10^3/uL (4.0-11.0) Red Blood Count 3.85 x10^6/uL (3.50-5.40) Hemoglobin 11.7 g/dL (12.0-15.5) Hematocrit 35.8 % (36.0-47.0) Mean Corpuscular Volume 93 fL (79-100) Mean Corpuscular Hemoglobin 30 pg (25-35) Mean Corpuscular Hemoglobin Concent 33 g/dL (31-37) Red Cell Distribution Width 14.4 % (11.5-14.5) Platelet Count 241 x10^3/uL (140-400) Neutrophils (%) (Auto) 68 % (31-73) Lymphocytes (%) (Auto) 19 % (24-48) Monocytes (%) (Auto) 10 % (0-9) Eosinophils (%) (Auto) 2 % (0-3) Basophils (%) (Auto) 0 % (0-3) Neutrophils # (Auto) 6.9 x10^3/uL (1.8-7.7) Lymphocytes # (Auto) 1.9 x10^3/uL (1.0-4.8) Monocytes # (Auto) 1.0 x10^3/uL (0.0-1.1) Eosinophils # (Auto) 0.2 x10^3/uL (0.0-0.7) Basophils # (Auto) 0.0 x10^3/uL (0.0-0.2) Sodium Level 137 mmol/L (136-145) Potassium Level 5.7 mmol/L (3.5-5.1) Chloride Level 105 mmol/L (98-107) Carbon Dioxide Level 25 mmol/L (21-32) Anion Gap 7 (6-14) Blood Urea Nitrogen 70 mg/dL (7-20) Creatinine 2.1 mg/dL (0.6-1.0) Estimated GFR (Cockcroft-Gault) 24.4 Glucose Level 58 mg/dL (70-99) Calcium Level 9.0 mg/dL (8.5-10.1) Magnesium Level 2.7 mg/dL (1.8-2.4) Laboratory Tests Test 08/01/20 15:34 08/01/20 15:55 08/01/20 17:11 08/01/20 20:00 Glucose (Fingerstick) 123 mg/dL (70-99) 126 mg/dL (70-99) O2 Saturation 97 % (92-99) 92 % (92-99) Arterial Blood pH 7.13 (7.35-7.45) 7.20 (7.35-7.45) Arterial Blood pCO2 at Patient Temp 77 mmHg (35-46) 65 mmHg (35-46) Arterial Blood pO2 at Patient Temp 105 mmHg (75-108) 73 mmHg (75-108) Arterial Blood HCO3 25 mmol/L (21-28) 24 mmol/L (21-28) Arterial Blood Base Excess -6 mmol/L (-3-3) -5 mmol/L (-3-3) FiO2 100% nrbm 35 Arterial Blood pO2 (Temp corrected) mmHg Test 08/01/20 21:22 08/02/20 07:20 08/02/20 07:31 08/02/20 09:50 Glucose (Fingerstick) 75 mg/dL (70-99) 80 mg/dL (70-99) O2 Saturation 92 % (92-99) Arterial Blood pH 7.17 (7.35-7.45) Arterial Blood pCO2 at Patient Temp 68 mmHg (35-46) Arterial Blood pO2 at Patient Temp 72 mmHg (75-108) Arterial Blood HCO3 24 mmol/L (21-28) Arterial Blood Base Excess -5 mmol/L (-3-3) FiO2 35 White Blood Count 10.1 x10^3/uL (4.0-11.0) Red Blood Count 3.85 x10^6/uL (3.50-5.40) Hemoglobin 11.7 g/dL (12.0-15.5) Hematocrit 35.8 % (36.0-47.0) Mean Corpuscular Volume 93 fL (79-100) Mean Corpuscular Hemoglobin 30 pg (25-35) Mean Corpuscular Hemoglobin Concent 33 g/dL (31-37) Red Cell Distribution Width 14.4 % (11.5-14.5) Platelet Count 241 x10^3/uL (140-400) Neutrophils (%) (Auto) 68 % (31-73) Lymphocytes (%) (Auto) 19 % (24-48) Monocytes (%) (Auto) 10 % (0-9) Eosinophils (%) (Auto) 2 % (0-3) Basophils (%) (Auto) 0 % (0-3) Neutrophils # (Auto) 6.9 x10^3/uL (1.8-7.7) Lymphocytes # (Auto) 1.9 x10^3/uL (1.0-4.8) Monocytes # (Auto) 1.0 x10^3/uL (0.0-1.1) Eosinophils # (Auto) 0.2 x10^3/uL (0.0-0.7) Basophils # (Auto) 0.0 x10^3/uL (0.0-0.2) Sodium Level 137 mmol/L (136-145) Potassium Level 5.7 mmol/L (3.5-5.1) Chloride Level 105 mmol/L (98-107) Carbon Dioxide Level 25 mmol/L (21-32) Anion Gap 7 (6-14) Blood Urea Nitrogen 70 mg/dL (7-20) Creatinine 2.1 mg/dL (0.6-1.0) Estimated GFR (Cockcroft-Gault) 24.4 Glucose Level 58 mg/dL (70-99) Calcium Level 9.0 mg/dL (8.5-10.1) Magnesium Level 2.7 mg/dL (1.8-2.4) Medications Current Medications Nicotine (Nicoderm Cq 21mg) 1 patch DAILY TD Last administered on 08/01/20 08:34; Start 07/29/20 at 23:55 Alprazolam (Xanax) 1 mg PRN Q8HRS PRN PO ANXIETY / AGITATION Last administered on 07/31/20 19:20; Start 07/29/20 at 23:15; Stop 08/02/20 at 13:36; Status DC Oxycodone HCl (Roxicodone) 30 mg PRN Q4HRS PRN PO PAIN Last administered on 08/01/20 06:35; Start 07/29/20 at 23:15; Stop 08/02/20 at 13:36; Status DC Glyburide (Diabeta) 5 mg DAILY08 PO Last administered on 08/01/20 08:33; Start 07/30/20 at 08:00 Mupirocin (Bactroban) 1 jing TID TP Last administered on 08/01/20 21:00; Start 07/30/20 at 09:00 Linagliptin (Tradjenta) 5 mg DAILY PO Last administered on 08/01/20 08:33; Start 07/30/20 at 09:00 Vitamin D (Vitamin D3) 1,000 unit DAILY PO Last administered on 08/01/20 08:33; Start 07/30/20 at 09:00 Non-Formulary Medication (Clindamycin Phos/Benzoyl Perox (Clind Ph-Benzoyl Perox 1.2-5%)) 1 jing DAILY TP ; Start 07/30/20 at 09:00; Stop 08/02/20 at 07:31; Status DC Duloxetine HCl (Cymbalta) 120 mg DAILY PO Last administered on 08/01/20 08:33; Start 07/30/20 at 09:00 Albuterol/ Ipratropium (Duoneb) 3 ml RTQID NEB Last administered on 07/31/20 07:23; Start 07/30/20 at 08:00; Stop 07/31/20 at 11:33; Status DC Atorvastatin Calcium (Lipitor) 5 mg QHS PO Last administered on 07/31/20 19:20; Start 07/30/20 at 21:00 Nystatin (Mycostatin) 1 jing BID TP Last administered on 08/02/20at 09:00; Start 07/30/20 at 09:00 Pantoprazole Sodium (Protonix) 40 mg DAILYAC PO Last administered on 08/01/20at 08:33; Start 07/30/20 at 07:30 Non-Formulary Medication (Tiotropium Buhler (Spiriva)) 2 inh PRN IH ; Start 07/29/20 at 23:30; Status Cancel Non-Formulary Medication ([farxiga] ) 1 tab DAILY PO ; Start 07/30/20 at 09:00; Stop 08/02/20 at 07:31; Status DC Lisinopril (Prinivil) 20 mg DAILY PO Last administered on 08/01/20at 08:34; Start 07/30/20 at 09:00 Gabapentin (Neurontin) 300 mg TID PO Last administered on 08/01/20at 14:03; Start 07/30/20 at 09:00 Metformin HCl (Glucophage) 1,000 mg DAILY08 PO Last administered on 08/01/20at 08:33; Start 07/30/20 at 08:00 Triamcinolone Acetonide (Kenalog 0.1%) 1 jing BID TP Last administered on 08/02/20at 09:00; Start 07/30/20 at 09:00 Insulin Human Lispro (HumaLOG) 0-7 UNITS TIDWMEALS SQ Last administered on 08/01/20at 08:32; Start 07/30/20 at 08:00 Dextrose (Dextrose 50%-Water Syringe) 12.5 gm PRN Q15MIN PRN IV SEE COMMENTS; Start 07/30/20 at 00:30 Non-Formulary Medication (Non Formulary Item) 1 ea Fr@0900 SQ ; Start 08/02/20 at 09:00; Stop 08/02/20 at 07:31; Status DC Sucralfate (Carafate) 1 gm BIDAC PO Last administered on 08/01/20at 08:33; Start 07/30/20 at 21:49 Alprazolam (Xanax) 0.5 mg PRN Q8HRS PRN PO ANXIETY / AGITATION; Start 08/02/20 at 13:45 Oxycodone HCl (Roxicodone) 20 mg PRN Q4HRS PRN PO PAIN; Start 08/02/20 at 13:45 Active Scripts Active Reported Trulicity (Dulaglutide) 0.75 Mg/0.5 Ml Pen.injctr 0.75 Mg SQ WEEKLY Vitamin D3 (Cholecalciferol (Vitamin D3)) 125 Mcg Tablet 125 Mcg PO DAILY Omeprazole 40 Mg Capsule.dr 1 Cap PO DAILY Nystatin-Triamcinolone Cream (Nystatin/Triamcin) 15 Gm Cream..g. 1 Jing TP BID Mupirocin Ointment (Mupirocin) 22 Gm Oint...g. 1 Jing TP TID NICODERM CQ 21mg (Nicotine) 1 Each Patch.td24 1 Patch TP DAILY Clind Ph-Benzoyl Perox 1.2-5% (Clindamycin Phos/Benzoyl Perox) 45 Gm Gel.er..g. 1 Jing TP DAILY 30 Days Cymbalta (Duloxetine Hcl) 60 Mg Capsule.dr 2 Cap PO DAILY Alprazolam 1 Mg Tablet 1 Tab PO TID [farxiga] 5 Mg 1 Tab PO DAILY Oxycodone Hcl Immed.release (Oxycodone Hcl) 30 Mg Tablet 1 Tab PO Q4HRS Spiriva (Tiotropium Buhler) 18 Mcg Cap.w.dev 2 Inh IH PRN Lovastatin 20 Mg Tablet 20 Mg PO HS Kazano 12.5-1,000 Mg Tablet (Alogliptin Jose/Metformin Hcl) 1 Each Tablet 1 Each PO DAILY Combivent Respimat Inhal (Ipratropium/Albuterol Sulfate) 4 Gm Aer.w.adap 2 Inh IH QID Vitals/I & O Vital Sign - Last 24 Hours 08/01/20 08/01/20 08/01/20 08/01/20 15:44 16:50 19:00 19:50 Temp 99.1 99.6 99.1 99.6 Pulse 94 78 Resp 18 18 B/P (MAP) 116/77 (90) 146/61 (89) Pulse Ox 95 95 95 95 O2 Delivery NC and NRB O2 Flow Rate 2.0 08/01/20 08/01/20 08/01/20 08/02/20 20:00 21:40 23:00 00:30 Temp 99.0 99.0 Pulse 89 Resp 18 B/P (MAP) 133/56 (81) Pulse Ox 95 95 92 O2 Delivery Room Air 08/02/20 08/02/20 08/02/20 08/02/20 03:00 03:00 05:15 07:00 Temp 98.8 98.2 98.8 98.2 Pulse 84 90 Resp 20 22 B/P (MAP) 119/86 (97) 143/60 (87) Pulse Ox 93 91 91 96 O2 Delivery BiPAP/CPAP 08/02/20 08/02/20 08/02/20 08/02/20 07:25 08:00 09:15 10:59 Pulse Ox 94 94 92 O2 Delivery Bi-pap O2 Flow Rate 2.0 08/02/20 11:00 Temp 98.0 98.0 Pulse 82 Resp 22 B/P (MAP) 138/62 (87) Pulse Ox 95 O2 Delivery BiPAP/CPAP Intake and Output 08/01/20 08/01/20 08/02/20 15:00 23:00 07:00 Intake Total 0 ml 0 ml 0 ml Output Total 0 ml Balance 0 ml 0 ml 0 ml Justifications for Admission Other Justification TERRY ALTMAN MD Aug 02, 2020 14:43
[2020-08-02 15:00] VITALS: BP 135/68
--- NOTE | 2020-08-02 15:05 | RAD ---
XR CHEST 1V History: Reason: SHORT OF BREATH / Spl. Instructions: / History: Comparison: March 18, 2015 Findings: Linear left basilar opacity, likely atelectasis. No pleural effusion. No pneumothorax. Normal heart s ize. Impression: 1. Linear left basilar opacity, likely atelectasis. Electronically signed by: Keyur Henson DO (08/02/2020 3:03 PM) [facility] [place]
[2020-08-02] MEDS: DEXAMETHASONE 4 MG TABLET PO SCH (17:00)
[2020-08-02] MEDS ORDERED: HYDROcodone/APAP 5/325MG 1 TAB TABLET PO PRN (17:00)
[2020-08-02 19:00] VITALS: BP 136/78
[2020-08-02] MEDS: ATORVASTATIN CALCIUM 10 MG TABLET. PO SCH (21:00)
[2020-08-02 23:00] VITALS: BP 151/88
[2020-08-03] VITALS (7 sets, daily range): BP systolic 145–248; BP diastolic 82–173
--- NOTE | 2020-08-03 00:29 | CONS ---
ATTENDING PHYSICIAN: Yelitza Cano. REASON FOR CONSULTATION: The patient is seen in pulmonary consultation at the request of Dr. Magaña for acute hypercapnic respiratory failure. Initial pH of 7.13, PaCO2 of 77, pO2 of 105. HISTORY OF PRESENT ILLNESS: The patient is a 64-year-old who was admitted on 07/30 with a history of type 2 diabetes, hypertension, went to the emergency room after falling on 07/27. She was evaluated. She then returned Wednesday and was brought to the emergency room, had CT head and cervical spine ordered, showed no acute disease. The patient represented with a mental status change. She was admitted with a left nondisplaced fibular fracture of proximal epiphysis resulting in inability to ambulate and transfer independently from one location to another. She was also having some difficulty with shortness of air. The arterial blood gas revealed the above pH of 7.13, PaCO2 of 77. The patient was placed on BiPAP. I was called several times last evening. We made some changes on the BiPAP this morning. The arterial blood gas revealed a pH of 7.17, PaCO2 of 68, pO2 of 72. The patient was taken off of all narcotics including benzodiazepine. She is now sitting up in a chair, awake, alert. She states that she falls asleep easily, but she is tolerating the BiPAP. O2 saturation greater than 92%. Part of her workup included serology for SARS, which was positive. INR was 1.0. White count was 10.1. I reviewed an x-ray, which I personally ordered today revealing left basilar atelectasis, otherwise no significant infiltrates. She did have a left lower extremity ultrasound revealing no evidence of DVT. PAST MEDICAL HISTORY: Otherwise remarkable for type 2 diabetes, hypertension, morbid obesity, tobacco dependent, COPD, carpal tunnel, gastritis, hemorrhoids, cholelithiasis, previous addiction, bipolar disorder, depression. PAST SURGICAL HISTORY: Status post cholecystectomy, , hysterectomy. FAMILY HISTORY: Cancer, diabetes and coronary artery disease along with hypertension. SOCIAL HISTORY: She has been smoking all of her adult life. REVIEW OF SYSTEMS: As indicated above, otherwise a 10-point system was reviewed and negative. ALLERGIES: PENICILLIN AND MORPHINE. PHYSICAL EXAMINATION: GENERAL: The patient was sitting up in a chair. VITAL SIGNS: Afebrile. She is awake, alert, following commands using BiPAP. HEENT: The sclerae were nonicteric. NECK: Jugular venous distention could not be assessed secondary to body habitus. CHEST: Full expansion. LUNGS: Adequate flow with no wheezes. ABDOMEN: Soft, nontender, nondistended. EXTREMITIES: No clubbing, cyanosis, some edema. LABORATORY DATA: Arterial blood gases indicated above. Electrolytes were noted. Potassium was elevated. BUN was elevated, creatinine was elevated. INR was 1.0. IMPRESSION: 1. Acute hypoxemic hypercapnic respiratory failure. 2. COVID-19 viral pneumonia. 3. Type 2 diabetes. 4. Fibular fracture. 5. Recent out of hospital arrest. 6. Chronic posttraumatic stress syndrome. 7. Anxiety disorder. 8. History of bipolar disorder. 9. Morbid obesity. 10. Tobacco dependent. 11. Acute exacerbation of chronic obstructive pulmonary disease. 12. Coronary artery disease. 13. Hypertension. 14. Hyperlipidemia. 15. Combination of respiratory and metabolic acidosis. PLAN: 1. The patient is doing well with BiPAP. During my evaluation, she was sitting up, using the BiPAP, she is responding to questions appropriately. 2. We will continue current support. 3. Recommend Nephrology input for chronic on acute renal failure. 4. Some of the acidosis is metabolic in nature related to renal failure. 5. We will require home noninvasive ventilation prior to discharge. We will discuss with geriatric social worker. I do appreciate the privilege in sharing in this patient's care. JULIO CESAR DR: Sheng TID: [id number]
[2020-08-03] MEDS: SUCRALFATE 1 GM TABLET. PO SCH ×2 (07:30→16:30)
[2020-08-03] MEDS: PANTOPRAZOLE 40 MG TABLET.DR. PO SCH (07:30)
[2020-08-03 07:36] LABS: BASE EXCESS ABG -2 mmol/L (-3-3); HCO3 ABG 26 mmol/L (21-28); PCO2 ABG 58 mmHg (35-46); PO2 ABG 80 mmHg (75-108); SAT O2 ABG 95 % (92-99)
[2020-08-03] MEDS: INSULIN LISPRO 300 UNITS/3 ML VIAL. SQ SCH ×3 (08:00→17:00)
[2020-08-03] MEDS: DEXAMETHASONE 4 MG TABLET PO SCH (08:00)
[2020-08-03] MEDS: metFORMIN 500 MG TABLET PO SCH (08:00)
[2020-08-03] MEDS: glyBURIDE 5 MG TABLET PO SCH (08:00)
--- NOTE | 2020-08-03 08:05 | PDOC ---
PULMONARY PROGRESS NOTES DATE: 08/03/20 TIME: 08:03 Subjective on bipap says her sob better, fio2 35% Vitals Vital Signs Date Time Temp Pulse Resp B/P (MAP) Pulse Ox O2 Delivery O2 Flow Rate FiO2 08/03/20 07:43 94 08/03/20 07:00 98.2 94 22 156/110 (125) BiPAP/CPAP 98.2 08/03/20 03:00 2.0 Comments on bipap General: Alert Lungs: Other (no accessory muscle use) Cardiovascular: S1, S2 Abdomen: Other (obese) Neuro Exam: Alert Skin: Warm Labs Laboratory Tests Test 08/01/20 12:16 08/01/20 15:34 08/01/20 15:55 08/01/20 17:11 Glucose (Fingerstick) 89 mg/dL (70-99) 123 mg/dL (70-99) 126 mg/dL (70-99) O2 Saturation 97 % (92-99) Arterial Blood pH 7.13 (7.35-7.45) Arterial Blood pCO2 at Patient Temp 77 mmHg (35-46) Arterial Blood pO2 at Patient Temp 105 mmHg (75-108) Arterial Blood HCO3 25 mmol/L (21-28) Arterial Blood Base Excess -6 mmol/L (-3-3) FiO2 100% nrbm Test 08/01/20 20:00 08/01/20 21:22 08/02/20 07:20 08/02/20 07:31 O2 Saturation 92 % (92-99) 92 % (92-99) Arterial Blood pH 7.20 (7.35-7.45) 7.17 (7.35-7.45) Arterial Blood pCO2 at Patient Temp 65 mmHg (35-46) 68 mmHg (35-46) Arterial Blood pO2 at Patient Temp 73 mmHg (75-108) 72 mmHg (75-108) Arterial Blood pO2 (Temp corrected) mmHg Arterial Blood HCO3 24 mmol/L (21-28) 24 mmol/L (21-28) Arterial Blood Base Excess -5 mmol/L (-3-3) -5 mmol/L (-3-3) FiO2 35 35 Glucose (Fingerstick) 75 mg/dL (70-99) 80 mg/dL (70-99) Test 08/02/20 09:50 08/02/20 17:14 08/02/20 19:28 08/03/20 07:18 White Blood Count 10.1 x10^3/uL (4.0-11.0) Red Blood Count 3.85 x10^6/uL (3.50-5.40) Hemoglobin 11.7 g/dL (12.0-15.5) Hematocrit 35.8 % (36.0-47.0) Mean Corpuscular Volume 93 fL (79-100) Mean Corpuscular Hemoglobin 30 pg (25-35) Mean Corpuscular Hemoglobin Concent 33 g/dL (31-37) Red Cell Distribution Width 14.4 % (11.5-14.5) Platelet Count 241 x10^3/uL (140-400) Neutrophils (%) (Auto) 68 % (31-73) Lymphocytes (%) (Auto) 19 % (24-48) Monocytes (%) (Auto) 10 % (0-9) Eosinophils (%) (Auto) 2 % (0-3) Basophils (%) (Auto) 0 % (0-3) Neutrophils # (Auto) 6.9 x10^3/uL (1.8-7.7) Lymphocytes # (Auto) 1.9 x10^3/uL (1.0-4.8) Monocytes # (Auto) 1.0 x10^3/uL (0.0-1.1) Eosinophils # (Auto) 0.2 x10^3/uL (0.0-0.7) Basophils # (Auto) 0.0 x10^3/uL (0.0-0.2) Sodium Level 137 mmol/L (136-145) Potassium Level 5.7 mmol/L (3.5-5.1) Chloride Level 105 mmol/L (98-107) Carbon Dioxide Level 25 mmol/L (21-32) Anion Gap 7 (6-14) Blood Urea Nitrogen 70 mg/dL (7-20) Creatinine 2.1 mg/dL (0.6-1.0) Estimated GFR (Cockcroft-Gault) 24.4 Glucose Level 58 mg/dL (70-99) Calcium Level 9.0 mg/dL (8.5-10.1) Magnesium Level 2.7 mg/dL (1.8-2.4) Glucose (Fingerstick) 103 mg/dL (70-99) 95 mg/dL (70-99) 59 mg/dL (70-99) Test 08/03/20 07:45 08/03/20 08:00 Glucose (Fingerstick) 100 mg/dL (70-99) O2 Saturation 95 % (92-99) Arterial Blood pH 7.27 (7.35-7.45) Arterial Blood pCO2 at Patient Temp 58 mmHg (35-46) Arterial Blood pO2 at Patient Temp 80 mmHg (75-108) Arterial Blood HCO3 26 mmol/L (21-28) Arterial Blood Base Excess -2 mmol/L (-3-3) FiO2 35% bipap Laboratory Tests Test 08/02/20 09:50 08/02/20 17:14 08/02/20 19:28 08/03/20 07:18 White Blood Count 10.1 x10^3/uL (4.0-11.0) Red Blood Count 3.85 x10^6/uL (3.50-5.40) Hemoglobin 11.7 g/dL (12.0-15.5) Hematocrit 35.8 % (36.0-47.0) Mean Corpuscular Volume 93 fL (79-100) Mean Corpuscular Hemoglobin 30 pg (25-35) Mean Corpuscular Hemoglobin Concent 33 g/dL (31-37) Red Cell Distribution Width 14.4 % (11.5-14.5) Platelet Count 241 x10^3/uL (140-400) Neutrophils (%) (Auto) 68 % (31-73) Lymphocytes (%) (Auto) 19 % (24-48) Monocytes (%) (Auto) 10 % (0-9) Eosinophils (%) (Auto) 2 % (0-3) Basophils (%) (Auto) 0 % (0-3) Neutrophils # (Auto) 6.9 x10^3/uL (1.8-7.7) Lymphocytes # (Auto) 1.9 x10^3/uL (1.0-4.8) Monocytes # (Auto) 1.0 x10^3/uL (0.0-1.1) Eosinophils # (Auto) 0.2 x10^3/uL (0.0-0.7) Basophils # (Auto) 0.0 x10^3/uL (0.0-0.2) Sodium Level 137 mmol/L (136-145) Potassium Level 5.7 mmol/L (3.5-5.1) Chloride Level 105 mmol/L (98-107) Carbon Dioxide Level 25 mmol/L (21-32) Anion Gap 7 (6-14) Blood Urea Nitrogen 70 mg/dL (7-20) Creatinine 2.1 mg/dL (0.6-1.0) Estimated GFR (Cockcroft-Gault) 24.4 Glucose Level 58 mg/dL (70-99) Calcium Level 9.0 mg/dL (8.5-10.1) Magnesium Level 2.7 mg/dL (1.8-2.4) Glucose (Fingerstick) 103 mg/dL (70-99) 95 mg/dL (70-99) 59 mg/dL (70-99) Test 08/03/20 07:45 08/03/20 08:00 Glucose (Fingerstick) 100 mg/dL (70-99) O2 Saturation 95 % (92-99) Arterial Blood pH 7.27 (7.35-7.45) Arterial Blood pCO2 at Patient Temp 58 mmHg (35-46) Arterial Blood pO2 at Patient Temp 80 mmHg (75-108) Arterial Blood HCO3 26 mmol/L (21-28) Arterial Blood Base Excess -2 mmol/L (-3-3) FiO2 35% bipap Medications Active Scripts Medications Dose Route/Sig Max Daily Dose Days Date Category Trulicity (Dulaglutide) 0.75 Mg/0.5 Ml Pen.injctr 0.75 Mg SQ WEEKLY 07/29/20 Reported Vitamin D3 (Cholecalciferol (Vitamin D3)) 125 Mcg Tablet 125 Mcg PO DAILY 07/29/20 Reported Omeprazole 40 Mg Capsule. 1 Cap PO DAILY 07/29/20 Reported Nystatin-Triamcinolone Cream (Nystatin/Triamcin) 15 Gm Cream..g. 1 Jing TP BID 07/29/20 Reported Mupirocin Ointment (Mupirocin) 22 Gm Oint...g. 1 Jing TP TID 07/29/20 Reported NICODERM CQ 21mg (Nicotine) 1 Each Patch.td24 1 Patch TP DAILY 07/29/20 Reported Clind Ph-Benzoyl Perox 1.2-5% (Clindamycin Phos/Benzoyl Perox) 45 Gm Gel.er..g. 1 Jing TP DAILY 30 07/29/20 Reported Cymbalta (Duloxetine Hcl) 60 Mg Capsule.dr 2 Cap PO DAILY 07/29/20 Reported Alprazolam 1 Mg Tablet 1 Tab PO TID 07/29/20 Reported [farxiga] 5 Mg 1 Tab PO DAILY 10/05/17 Reported Oxycodone Hcl Immed.release (Oxycodone Hcl) 30 Mg Tablet 1 Tab PO Q4HRS 10/05/17 Reported Spiriva (Tiotropium [place]) 18 Mcg Cap.w.dev 2 Inh IH PRN 10/05/17 Reported Lovastatin 20 Mg Tablet 20 Mg PO HS 10/05/17 Reported Kazano 12.5-1,000 Mg Tablet (Alogliptin Jose/Metformin Hcl) 1 Each Tablet 1 Each PO DAILY 11/11/15 Reported Combivent Respimat Inhal (Ipratropium/Albuterol Sulfate) 4 Gm Aer.w.adap 2 Inh IH QID 03/13/15 Reported Impression . IMPRESSION: 1. Acute hypoxemic hypercapnic respiratory failure. 2. COVID-19 viral pneumonia. 3. Type 2 diabetes. 4. Fibular fracture. 5. Recent out of hospital arrest. 6. Chronic posttraumatic stress syndrome. 7. Anxiety disorder. 8. History of bipolar disorder. 9. Morbid obesity. 10. Tobacco dependent. 11. Acute exacerbation of chronic obstructive pulmonary disease. 12. Coronary artery disease. 13. Hypertension. 14. Hyperlipidemia. 15. Combination of respiratory and metabolic acidosis. Plan . PLAN: 1. 02 titration to keep sat 90% not higher cont steroid 2. cont bipap setting reviewed 3. please consult Nephrology for chronic on acute renal failure. is ortho on case? per primary 4. Some of the acidosis is metabolic in nature related to renal failure. 5. We will require home noninvasive ventilation prior to discharge. 6. elevate hob 7. 6 min walk at dc 8. lovenox for dvt prophylaxis 9. protonix for stress ulcer prophylaxis discussed w HARPAL Solano MD Aug 03, 2020 08:05
--- NOTE | 2020-08-03 08:20 | NUR ---
BP 156/110 PT NPO DUE TO LETHARGY AND USE OF BIPAP. CALL PLACED TO DR ALTMAN. DR BETTS HERE TO SEE PT. RECEIVED ORDERS FOR CLONIDINE PATCH. DR BETTS ALSO NOTIFIED OF BS 59. WAS TREATED PER PROTOCOL AND RECHECK WAS 100.
[2020-08-03] MEDS: LINAGLIPTIN 5 MG TABLET PO SCH (09:00)
[2020-08-03] MEDS: GABAPENTIN 300 MG CAPSULE. PO SCH ×3 (09:00→21:00)
[2020-08-03] MEDS: LISINOPRIL 20 MG TABLET PO SCH (09:00)
[2020-08-03] MEDS: NYSTATIN 100,000 UNIT/GM TOPICAL CREAM 15GM TUBE. TP SCH ×2 (09:00→21:00)
[2020-08-03] MEDS: TRIAMCINOLONE ACETONIDE 0.1% TOPICAL CREAM 15GM TUBE. TP SCH ×2 (09:00→21:00)
[2020-08-03] MEDS: DULoxetine HCL 30 MG CAPSULE.DR PO SCH (09:00)
[2020-08-03] MEDS: CHOLECALCIFEROL (VITAMIN D3) 1,000 UNIT TABLET PO SCH (09:00)
[2020-08-03] MEDS: MUPIROCIN 2 % NASAL OINTMENT 22GM TUBE. TP SCH ×3 (09:00→21:00)
[2020-08-03] MEDS ORDERED: cloNIDine TTS-1 1 PATCH PATCH.TDWK TD SCH (10:00)
--- NOTE | 2020-08-03 14:20 | PN ---
DATE: 08/03/2020 LOCATION: She is in room 673. SUBJECTIVE: This 55-year-old female admitted with acute respiratory failure, predominantly hypercarbic with respiratory acidosis, COVID-19 pneumonia, mental encephalopathy. OBJECTIVE: VITAL SIGNS: Stable. She is afebrile. Blood pressures are a little bit high and Catapres patch has been added after discussion with nursing. CHEST: Reveals decreased breath sounds. She is obtunded on seeing her, but has her BiPAP off. Nursing is reapplying as I saw. HEART: Regular. ABDOMEN: Obese and benign. IMPRESSION: 1. Acute hypoxic hypercapnic respiratory failure. 2. COVID-19 viral pneumonia. 3. Type 2 diabetes. 4. Fibular fracture. 5. History of bipolar/schizophrenia. 6. Morbid obesity. 7. Acute exacerbation of chronic obstructive pulmonary disease. 8. History of coronary artery disease, hypertension, hyperlipidemia. PLAN: Continue BiPAP therapy and having difficulty getting her to keep it on. She will need to be on similar on discharge per Pulmonary. Otherwise, supportive care and Catapres for blood pressure currently. CHARLES DR: Damian TID: [id number]
[2020-08-03] MEDS: NICOTINE 21MG PATCH. TD SCH (14:44)
--- NOTE | 2020-08-03 15:30 | CONS ---
DATE OF CONSULTATION: 08/03/2020 NEPHROLOGY CONSULTATION REQUESTING PHYSICIAN: Dr. Cano. REASON FOR CONSULTATION: Chronic kidney disease. HISTORY OF PRESENT ILLNESS: This is a 55-year-old female with history of diabetes mellitus, chronic kidney disease stage 3/4. She is currently admitted having sustained a cat bite to the right lower extremity with subsequent development of cellulitis. She also has been found to have left fibula proximal fracture. Due to reduced renal function, Nephrology evaluation requested. The patient has also been noted to be COVID-19 positive since hospitalization. PAST MEDICAL HISTORY: Diabetes mellitus, hypertension, chronic kidney disease stage 3/4, posttraumatic stress disorder, anxiety disorder, impaired cognitive ability. ALLERGIES: PENICILLIN, MORPHINE AND WASP VENOM. MEDICATIONS: Reviewed per medication list. FAMILY HISTORY: Noncontributory. SOCIAL HISTORY: The patient resides independently. REVIEW OF SYSTEMS: Not obtained from the patient as she is COVID-19 positive. PHYSICAL EXAMINATION: Due to COVID-19 positive status, bedside examination not pursued. LABORATORY DATA: White count 10.1, hemoglobin 11.7, hematocrit 35.8. Sodium is 137, potassium 5.7, chloride 105, CO2 of 25, BUN 70, creatinine 2.1, GFR of 24.4, magnesium 2.7, calcium 9. IMPRESSION: 1. Chronic kidney disease stage 3/4 with current setting of diabetic nephropathy and hypertensive nephrosclerosis. 2. Cat bite with associated cellulitis. 3. Fracture of the lower extremity. 4. Hyperkalemia. RECOMMENDATIONS: 1. Maintain fluid balance. 2. Antibiotics for cat bite to include coverage for Pasteurella. 3. Low potassium diet. 4. We will trend labs and fluid balance. RAMESH/HUMPHREY CALI: Caro TID: [id number]
--- NOTE | 2020-08-03 19:09 | NUR ---
TROUBLE WITH PT KEEPING BIPAP ON. CONSTANTLY WANTS TO REMOVE IT. MITTS APPLIED TO PTS HANDS BUT SHE CONTINUED TO GET THEM OFF. CONTINUE TO REINFORCE NEED FOR BIPAP. SOMETIMES SHE UNDERSTANDS AND OTHERS SHE IS CONFUSED. IF PT IS REFUSING BIPAP, O2 PER NC AT 4L. WILL CONTINUE TO MONITOR. DR BETTS IS AWARE. PT WAS ASSISTED TO BSC AND BM NOTED. SHE WILL USE THE BEDPAN FOR URINE OUTPUT.
[2020-08-03] MEDS: ATORVASTATIN CALCIUM 10 MG TABLET. PO SCH (21:00)
--- NOTE | 2020-08-03 23:45 | NUR ---
Pt sleeping beginning of shift, non compliant when awake, pt has been NPO reason not fully awaken, not cooperating and refusing to wear O2 BIPAP, continues to take electrodes off, wanting to sleep naked. SR on telemetry with LL off, SPO2 fluctuates between 89% and 94%.
[2020-08-04] VITALS (7 sets, daily range): BP systolic 163–209; BP diastolic 90–134
--- NOTE | 2020-08-04 00:24 | NUR ---
Left message on [phone] Cano to inform pt's/SPO2 saturation fluctuating 83% to 90's, pt refusing to wear BIPAP, and non compliant with nasal cannula, confused, lethargic, and combative per respiratory therapist when attempting to place BIPAP. Will continue to monitor,
[2020-08-04] MEDS: NICOTINE 21MG PATCH. TD SCH (02:40)
[2020-08-04] MEDS: ALPRAZolam 1 MG TABLET PO ONE ×2 (02:40→08:00)
--- NOTE | 2020-08-04 03:17 | NUR ---
Debo RT attempted to place patient on BIPAP at 1930 and patient was refusing. At [address] patient back on BIPAP patient refused. I explained the ABG results not being compensated yet in language she would understand and she seemed oriented to understand why she should wear the mask. She then agreed to place the mask on, as I was placing the mask on the patient she swung her fist toward me. She kept moaning and refusing to let me place the BIPAP on. Attempted again at 2314 with Debo RT as well and she was still refusing to place the BIPAP on. RN is aware of the situation.
[2020-08-04] MEDS ORDERED: ALPRAZolam 0.5 MG TABLET PO ONE (03:30)
[2020-08-04] MEDS ORDERED: ALPRAZolam 0.5 MG TABLET PO PRN (05:30)
[2020-08-04] MEDS ORDERED: ONDANSETRON PF 4 MG/2 ML VIAL. IVP PRN (05:30)
[2020-08-04] MEDS ORDERED: oxyCODONE IR 5 MG TABLET PO PRN (06:15)
[2020-08-04] MEDS ORDERED: fentaNYL PF VIAL 100 MCG/2 ML VIAL IVP ONE (06:30)
[2020-08-04] MEDS: SUCRALFATE 1 GM TABLET. PO SCH ×2 (07:30→16:30)
[2020-08-04] MEDS: PANTOPRAZOLE 40 MG TABLET.DR. PO SCH (07:30)
[2020-08-04 07:40] LABS: BASE EXCESS ABG -2 mmol/L (-3-3); HCO3 ABG 24 mmol/L (21-28); PCO2 ABG 48 mmHg (35-46); PO2 ABG 92 mmHg (75-108); SAT O2 ABG 96 % (92-99)
[2020-08-04 07:44] LABS: FIO2 ABG 25% BIPAP
[2020-08-04] MEDS: INSULIN LISPRO 300 UNITS/3 ML VIAL. SQ SCH ×3 (08:00→17:00)
[2020-08-04] MEDS: DEXAMETHASONE 4 MG TABLET PO SCH (08:00)
[2020-08-04] MEDS: glyBURIDE 5 MG TABLET PO SCH (08:00)
[2020-08-04] MEDS: metFORMIN 500 MG TABLET PO SCH (08:00)
--- NOTE | 2020-08-04 08:01 | PDOC ---
PULMONARY PROGRESS NOTES DATE: 08/04/20 TIME: 07:56 Subjective on bipap was pulling bipap had ativan 1 mg iv now on fio2 35% sleepy Vitals Vital Signs Date Time Temp Pulse Resp B/P (MAP) Pulse Ox O2 Delivery O2 Flow Rate FiO2 08/04/20 07:34 94 BiPAP/CPAP 08/04/20 00:21 101 165/90 (115) 08/03/20 23:00 98.6 20 98.6 Comments on bipap Lungs: Other (no accessory muscle use) Cardiovascular: S1, S2 Abdomen: Soft, Non-tender, Other (obese) Neuro Exam: Alert Skin: Warm Labs Laboratory Tests Test 08/02/20 09:50 08/02/20 17:14 08/02/20 19:28 08/03/20 07:18 White Blood Count 10.1 x10^3/uL (4.0-11.0) Red Blood Count 3.85 x10^6/uL (3.50-5.40) Hemoglobin 11.7 g/dL (12.0-15.5) Hematocrit 35.8 % (36.0-47.0) Mean Corpuscular Volume 93 fL (79-100) Mean Corpuscular Hemoglobin 30 pg (25-35) Mean Corpuscular Hemoglobin Concent 33 g/dL (31-37) Red Cell Distribution Width 14.4 % (11.5-14.5) Platelet Count 241 x10^3/uL (140-400) Neutrophils (%) (Auto) 68 % (31-73) Lymphocytes (%) (Auto) 19 % (24-48) Monocytes (%) (Auto) 10 % (0-9) Eosinophils (%) (Auto) 2 % (0-3) Basophils (%) (Auto) 0 % (0-3) Neutrophils # (Auto) 6.9 x10^3/uL (1.8-7.7) Lymphocytes # (Auto) 1.9 x10^3/uL (1.0-4.8) Monocytes # (Auto) 1.0 x10^3/uL (0.0-1.1) Eosinophils # (Auto) 0.2 x10^3/uL (0.0-0.7) Basophils # (Auto) 0.0 x10^3/uL (0.0-0.2) Sodium Level 137 mmol/L (136-145) Potassium Level 5.7 mmol/L (3.5-5.1) Chloride Level 105 mmol/L (98-107) Carbon Dioxide Level 25 mmol/L (21-32) Anion Gap 7 (6-14) Blood Urea Nitrogen 70 mg/dL (7-20) Creatinine 2.1 mg/dL (0.6-1.0) Estimated GFR (Cockcroft-Gault) 24.4 Glucose Level 58 mg/dL (70-99) Calcium Level 9.0 mg/dL (8.5-10.1) Magnesium Level 2.7 mg/dL (1.8-2.4) Glucose (Fingerstick) 103 mg/dL (70-99) 95 mg/dL (70-99) 59 mg/dL (70-99) Test 08/03/20 07:45 08/03/20 08:00 08/03/20 11:07 08/03/20 17:07 Glucose (Fingerstick) 100 mg/dL (70-99) 87 mg/dL (70-99) 116 mg/dL (70-99) O2 Saturation 95 % (92-99) Arterial Blood pH 7.27 (7.35-7.45) Arterial Blood pCO2 at Patient Temp 58 mmHg (35-46) Arterial Blood pO2 at Patient Temp 80 mmHg (75-108) Arterial Blood HCO3 26 mmol/L (21-28) Arterial Blood Base Excess -2 mmol/L (-3-3) FiO2 35% bipap Test 08/03/20 20:35 08/04/20 07:14 08/04/20 07:37 Glucose (Fingerstick) 157 mg/dL (70-99) 123 mg/dL (70-99) O2 Saturation 96 % (92-99) Arterial Blood pH 7.32 (7.35-7.45) Arterial Blood pCO2 at Patient Temp 48 mmHg (35-46) Arterial Blood pO2 at Patient Temp 92 mmHg (75-108) Arterial Blood HCO3 24 mmol/L (21-28) Arterial Blood Base Excess -2 mmol/L (-3-3) FiO2 25% bipap Laboratory Tests Test 08/03/20 08:00 08/03/20 11:07 08/03/20 17:07 08/03/20 20:35 O2 Saturation 95 % (92-99) Arterial Blood pH 7.27 (7.35-7.45) Arterial Blood pCO2 at Patient Temp 58 mmHg (35-46) Arterial Blood pO2 at Patient Temp 80 mmHg (75-108) Arterial Blood HCO3 26 mmol/L (21-28) Arterial Blood Base Excess -2 mmol/L (-3-3) FiO2 35% bipap Glucose (Fingerstick) 87 mg/dL (70-99) 116 mg/dL (70-99) 157 mg/dL (70-99) Test 08/04/20 07:14 08/04/20 07:37 Glucose (Fingerstick) 123 mg/dL (70-99) O2 Saturation 96 % (92-99) Arterial Blood pH 7.32 (7.35-7.45) Arterial Blood pCO2 at Patient Temp 48 mmHg (35-46) Arterial Blood pO2 at Patient Temp 92 mmHg (75-108) Arterial Blood HCO3 24 mmol/L (21-28) Arterial Blood Base Excess -2 mmol/L (-3-3) FiO2 25% bipap Medications Active Scripts Medications Dose Route/Sig Max Daily Dose Days Date Category Trulicity (Dulaglutide) 0.75 Mg/0.5 Ml Pen.injctr 0.75 Mg SQ WEEKLY 07/29/20 Reported Vitamin D3 (Cholecalciferol (Vitamin D3)) 125 Mcg Tablet 125 Mcg PO DAILY 07/29/20 Reported Omeprazole 40 Mg Capsule.dr 1 Cap PO DAILY 07/29/20 Reported Nystatin-Triamcinolone Cream (Nystatin/Triamcin) 15 Gm Cream..g. 1 Jing TP BID 07/29/20 Reported Mupirocin Ointment (Mupirocin) 22 Gm Oint...g. 1 Jing TP TID 07/29/20 Reported NICODERM CQ 21mg (Nicotine) 1 Each Patch.td24 1 Patch TP DAILY 07/29/20 Reported Clind Ph-Benzoyl Perox 1.2-5% (Clindamycin Phos/Benzoyl Perox) 45 Gm Gel.er..g. 1 Jing TP DAILY 30 07/29/20 Reported Cymbalta (Duloxetine Hcl) 60 Mg Capsule.dr 2 Cap PO DAILY 07/29/20 Reported Alprazolam 1 Mg Tablet 1 Tab PO TID 07/29/20 Reported [farxiga] 5 Mg 1 Tab PO DAILY 10/05/17 Reported Oxycodone Hcl Immed.release (Oxycodone Hcl) 30 Mg Tablet 1 Tab PO Q4HRS 10/05/17 Reported Spiriva (Tiotropium [place]) 18 Mcg Cap.w.dev 2 Inh IH PRN 10/05/17 Reported Lovastatin 20 Mg Tablet 20 Mg PO HS 10/05/17 Reported Kazano 12.5-1,000 Mg Tablet (Alogliptin Jose/Metformin Hcl) 1 Each Tablet 1 Each PO DAILY 11/11/15 Reported Combivent Respimat Inhal (Ipratropium/Albuterol Sulfate) 4 Gm Aer.w.adap 2 Inh IH QID 03/13/15 Reported Impression . IMPRESSION: 1. Acute hypoxemic hypercapnic respiratory failure. 2. COVID-19 viral pneumonia. 3. Type 2 diabetes. 4. Fibular fracture. 5. Recent out of hospital arrest. 6. Chronic posttraumatic stress syndrome. 7. Anxiety disorder. 8. History of bipolar disorder. 9. Morbid obesity. 10. Tobacco dependent. 11. Acute exacerbation of chronic obstructive pulmonary disease. 12. Coronary artery disease. 13. Hypertension. 14. Hyperlipidemia. 15. Combination of respiratory and metabolic acidosis. Plan . PLAN: 1. 02 titration to keep sat 90% not higher sat 100% on fio2 35% personally decreased fio2 to 30% then 25% will increase hob to 30 degrees discussed w rn avoid over sedation will do abg cont steroid 2. cont bipap setting reviewed 3. Nephrology consuted for chronic on acute renal failure. is ortho on case? per primary 4. Some of the acidosis is metabolic in nature related to renal failure. 5. home noninvasive ventilation prior to discharge. 6. elevate hob 7. 6 min walk at dc 8. lovenox for dvt prophylaxis 9. protonix for stress ulcer prophylaxis discussed w HARPAL Solano MD Aug 04, 2020 08:01
[2020-08-04] MEDS: LISINOPRIL 20 MG TABLET PO SCH (09:00)
[2020-08-04] MEDS: DULoxetine HCL 30 MG CAPSULE.DR PO SCH (09:00)
[2020-08-04] MEDS: LINAGLIPTIN 5 MG TABLET PO SCH (09:00)
[2020-08-04] MEDS: CHOLECALCIFEROL (VITAMIN D3) 1,000 UNIT TABLET PO SCH (09:00)
[2020-08-04] MEDS: GABAPENTIN 300 MG CAPSULE. PO SCH ×3 (09:00→22:59)
[2020-08-04] MEDS: IV NORMAL SALINE 1000ML BAG 1,000 ML IV SCH (09:17)
[2020-08-04] MEDS: ENOXAPARIN 40 MG/0.4 ML SYRINGE. SQ SCH ×2 (09:18→22:58)
[2020-08-04] MEDS: MUPIROCIN 2 % NASAL OINTMENT 22GM TUBE. TP SCH ×3 (09:30→21:00)
[2020-08-04] MEDS: NYSTATIN 100,000 UNIT/GM TOPICAL CREAM 15GM TUBE. TP SCH (09:30)
[2020-08-04] MEDS: TRIAMCINOLONE ACETONIDE 0.1% TOPICAL CREAM 15GM TUBE. TP SCH (09:30)
[2020-08-04] MEDS: hydrALAZINE 20 MG/ML VIAL. IVP PRN ×3 (11:29→22:59)
[2020-08-04 12:04] LABS: BASO % 0 % (0-3); EOS # 0.1 x10^3/uL (0.0-0.7); EOS % 1 % (0-3); HEMOGLOBIN 13.7 g/dL (12.0-15.5); LYMPH # 1.2 x10^3/uL (1.0-4.8); LYMPH % 12 % (24-48); MEAN CORPUSCULAR HEMOGLOBIN 31 pg (25-35); MEAN CORPUSCULAR HGB CONC 33 g/dL (31-37); MEAN CORPUSCULAR VOLUME 94 fL (79-100); MONO # 0.8 x10^3/uL (0.0-1.1); MONO % 8 % (0-9); NEUT # 7.8 x10^3/uL (1.8-7.7); NEUT % 79 % (31-73); PLATELET COUNT 312 x10^3/uL (140-400); RED BLOOD COUNT 4.47 x10^6/uL (3.50-5.40); RED CELL DISTRIBUTION WIDTH 14.8 % (11.5-14.5)
[2020-08-04 12:19] LABS: ALBUMIN 2.9 g/dL (3.4-5.0); ALBUMIN/GLOBULIN RATIO 0.5 (1.0-1.7); CALCIUM 9.9 mg/dL (8.5-10.1); CREATININE 1.1 mg/dL (0.6-1.0); GFR 51.4; POTASSIUM 5.5 mmol/L (3.5-5.1); TOTAL BILIRUBIN 0.4 mg/dL (0.2-1.0); TOTAL PROTEIN 8.6 g/dL (6.4-8.2)
--- NOTE | 2020-08-04 18:34 | NUR ---
Nurse's note: Patient was noted to be drowsy this morning and kept removing her BiPAP mask. This nurse discussed with her that her oxygenation/blood gases are improving; she agreed to keep her BiPAP on. The patient woke up at lunch time, walked to the bedside commode, and had few bites of her meal. O2 saturation remained at 93 to 95% on room air. This afternoon, patient went back to sleep, BiPAP was placed back on. She also had episodes of high blood pressure in the SBP 200's, prn hydralazine given. We will continue to monitor.
--- NOTE | 2020-08-04 22:39 | PN ---
DATE: 08/04/2020 LOCATION: She is in room #673. SUBJECTIVE: This 55-year-old white female remains hospitalized with acute respiratory failure, predominantly hypercarbic with some hypoxemia, respiratory acidosis, COVID-19 pneumonia and encephalopathy. Nursing reports that they are having difficulties keeping BiPAP on at all times, although it is on at this point in time and her blood gases this morning actually looked quite a bit better. OBJECTIVE: VITAL SIGNS: Stable. She is afebrile. Blood pressures are quite high at times and IV p.r.n. hydralazine was added to her regimen. CHEST: Decreased breath sounds. She remains obtunded currently. HEART: Regular. ABDOMEN: Obese and benign. IMPRESSION: 1. Acute hypoxic hypercapnic respiratory failure. 2. COVID-19 viral pneumonia. 3. Diabetes. 4. Fibular fracture. 5. History of bipolar/schizophrenia. 6. Morbid obesity. 7. Acute exacerbation of chronic obstructive pulmonary disease. 8. History of coronary artery disease, hypertension and hyperlipidemia. PLAN: Continue BiPAP therapy. Pulmonary help appreciated. Cautioned nursing on increasing O2 if she would not keep the BiPAP on to make the hypercarbia worse. IV hydralazine in addition to her current regimen. MANNY/SHIRA DR: MEJIA/isaiah TID: [id number]
[2020-08-04] MEDS: ATORVASTATIN CALCIUM 10 MG TABLET. PO SCH (22:58)
[2020-08-05] VITALS (8 sets, daily range): BP systolic 120–237; BP diastolic 58–111
[2020-08-05] MEDS: TRIAMCINOLONE ACETONIDE 0.1% TOPICAL CREAM 15GM TUBE. TP SCH ×3 (01:20→21:00)
[2020-08-05] MEDS: NYSTATIN 100,000 UNIT/GM TOPICAL CREAM 15GM TUBE. TP SCH ×3 (01:21→21:00)
[2020-08-05 08:19] LABS: BASE EXCESS ABG -1 mmol/L (-3-3); HCO3 ABG 24 mmol/L (21-28); PCO2 ABG 41 mmHg (35-46); PO2 ABG 98 mmHg (75-108); SAT O2 ABG 97 % (92-99)
[2020-08-05 08:21] LABS: FIO2 ABG 25% BIPAP
[2020-08-05] MEDS: NICOTINE 21MG PATCH. TD SCH (08:21)
[2020-08-05] MEDS: glyBURIDE 5 MG TABLET PO SCH (08:21)
[2020-08-05] MEDS: SUCRALFATE 1 GM TABLET. PO SCH ×2 (08:21→17:57)
[2020-08-05] MEDS: CHOLECALCIFEROL (VITAMIN D3) 1,000 UNIT TABLET PO SCH (08:21)
[2020-08-05] MEDS: DULoxetine HCL 30 MG CAPSULE.DR PO SCH (08:21)
[2020-08-05] MEDS: LINAGLIPTIN 5 MG TABLET PO SCH (08:21)
[2020-08-05] MEDS: GABAPENTIN 300 MG CAPSULE. PO SCH ×3 (08:21→21:14)
[2020-08-05] MEDS: LISINOPRIL 20 MG TABLET PO SCH (08:22)
[2020-08-05] MEDS: DEXAMETHASONE 4 MG TABLET PO SCH (08:22)
[2020-08-05] MEDS: ENOXAPARIN 40 MG/0.4 ML SYRINGE. SQ SCH ×2 (08:22→21:15)
[2020-08-05] MEDS: PANTOPRAZOLE 40 MG TABLET.DR. PO SCH (08:22)
[2020-08-05] MEDS: metFORMIN 500 MG TABLET PO SCH (08:22)
[2020-08-05] MEDS: MUPIROCIN 2 % NASAL OINTMENT 22GM TUBE. TP SCH ×3 (08:23→21:00)
[2020-08-05] MEDS: hydrALAZINE 20 MG/ML VIAL. IVP PRN ×2 (08:23→15:34)
[2020-08-05] MEDS: INSULIN LISPRO 300 UNITS/3 ML VIAL. SQ SCH ×3 (08:27→17:58)
[2020-08-05] MEDS: IV NORMAL SALINE 1000ML BAG 1,000 ML IV SCH ×3 (09:00→22:30)
--- NOTE | 2020-08-05 09:52 | PDOC ---
PULMONARY PROGRESS NOTES DATE: 08/05/20 TIME: 09:52 Subjective Remains on 3 liters NC afebrile no increased cough or SOB Vitals Vital Signs Date Time Temp Pulse Resp B/P (MAP) Pulse Ox O2 Delivery O2 Flow Rate FiO2 08/05/20 08:23 81 225/103 08/05/20 08:16 99 Room Air 08/05/20 07:00 98.6 22 98.6 08/05/20 05:00 2.0 ROS: No Nausea, No Chest Pain, No Abdominal Pain, No Increase Cough General: Alert Lungs: Clear Cardiovascular: S1, S2 Abdomen: Soft, Non-tender, Other (obese) Neuro Exam: Alert Skin: Warm Labs Laboratory Tests Test 08/03/20 10:40 08/03/20 11:07 08/03/20 17:07 08/03/20 20:35 SARS-CoV-2 RNA (JANIA) Negative (Negative) Glucose (Fingerstick) 87 mg/dL (70-99) 116 mg/dL (70-99) 157 mg/dL (70-99) Test 08/04/20 07:14 08/04/20 07:37 08/04/20 11:35 08/04/20 11:45 Glucose (Fingerstick) 123 mg/dL (70-99) 151 mg/dL (70-99) O2 Saturation 96 % (92-99) Arterial Blood pH 7.32 (7.35-7.45) Arterial Blood pCO2 at Patient Temp 48 mmHg (35-46) Arterial Blood pO2 at Patient Temp 92 mmHg (75-108) Arterial Blood HCO3 24 mmol/L (21-28) Arterial Blood Base Excess -2 mmol/L (-3-3) FiO2 25% bipap White Blood Count 10.0 x10^3/uL (4.0-11.0) Red Blood Count 4.47 x10^6/uL (3.50-5.40) Hemoglobin 13.7 g/dL (12.0-15.5) Hematocrit 42.0 % (36.0-47.0) Mean Corpuscular Volume 94 fL (79-100) Mean Corpuscular Hemoglobin 31 pg (25-35) Mean Corpuscular Hemoglobin Concent 33 g/dL (31-37) Red Cell Distribution Width 14.8 % (11.5-14.5) Platelet Count 312 x10^3/uL (140-400) Neutrophils (%) (Auto) 79 % (31-73) Lymphocytes (%) (Auto) 12 % (24-48) Monocytes (%) (Auto) 8 % (0-9) Eosinophils (%) (Auto) 1 % (0-3) Basophils (%) (Auto) 0 % (0-3) Neutrophils # (Auto) 7.8 x10^3/uL (1.8-7.7) Lymphocytes # (Auto) 1.2 x10^3/uL (1.0-4.8) Monocytes # (Auto) 0.8 x10^3/uL (0.0-1.1) Eosinophils # (Auto) 0.1 x10^3/uL (0.0-0.7) Basophils # (Auto) 0.0 x10^3/uL (0.0-0.2) D-Dimer (Sommer) 2.92 ug/mlFEU (0.00-0.50) Sodium Level 146 mmol/L (136-145) Potassium Level 5.5 mmol/L (3.5-5.1) Chloride Level 110 mmol/L (98-107) Carbon Dioxide Level 25 mmol/L (21-32) Anion Gap 11 (6-14) Blood Urea Nitrogen 37 mg/dL (7-20) Creatinine 1.1 mg/dL (0.6-1.0) Estimated GFR (Cockcroft-Gault) 51.4 BUN/Creatinine Ratio 34 (6-20) Glucose Level 157 mg/dL (70-99) Calcium Level 9.9 mg/dL (8.5-10.1) Total Bilirubin 0.4 mg/dL (0.2-1.0) Aspartate Amino Transf (AST/SGOT) 22 U/L (15-37) Alanine Aminotransferase (ALT/SGPT) 27 U/L (14-59) Alkaline Phosphatase 85 U/L (46-116) Total Protein 8.6 g/dL (6.4-8.2) Albumin 2.9 g/dL (3.4-5.0) Albumin/Globulin Ratio 0.5 (1.0-1.7) Test 08/04/20 16:37 08/04/20 19:32 08/05/20 07:40 08/05/20 08:00 Glucose (Fingerstick) 198 mg/dL (70-99) 163 mg/dL (70-99) 177 mg/dL (70-99) O2 Saturation 97 % (92-99) Arterial Blood pH 7.39 (7.35-7.45) Arterial Blood pCO2 at Patient Temp 41 mmHg (35-46) Arterial Blood pO2 at Patient Temp 98 mmHg (75-108) Arterial Blood HCO3 24 mmol/L (21-28) Arterial Blood Base Excess -1 mmol/L (-3-3) FiO2 25% bipap Laboratory Tests Test 08/04/20 11:35 08/04/20 11:45 08/04/20 16:37 08/04/20 19:32 Glucose (Fingerstick) 151 mg/dL (70-99) 198 mg/dL (70-99) 163 mg/dL (70-99) White Blood Count 10.0 x10^3/uL (4.0-11.0) Red Blood Count 4.47 x10^6/uL (3.50-5.40) Hemoglobin 13.7 g/dL (12.0-15.5) Hematocrit 42.0 % (36.0-47.0) Mean Corpuscular Volume 94 fL (79-100) Mean Corpuscular Hemoglobin 31 pg (25-35) Mean Corpuscular Hemoglobin Concent 33 g/dL (31-37) Red Cell Distribution Width 14.8 % (11.5-14.5) Platelet Count 312 x10^3/uL (140-400) Neutrophils (%) (Auto) 79 % (31-73) Lymphocytes (%) (Auto) 12 % (24-48) Monocytes (%) (Auto) 8 % (0-9) Eosinophils (%) (Auto) 1 % (0-3) Basophils (%) (Auto) 0 % (0-3) Neutrophils # (Auto) 7.8 x10^3/uL (1.8-7.7) Lymphocytes # (Auto) 1.2 x10^3/uL (1.0-4.8) Monocytes # (Auto) 0.8 x10^3/uL (0.0-1.1) Eosinophils # (Auto) 0.1 x10^3/uL (0.0-0.7) Basophils # (Auto) 0.0 x10^3/uL (0.0-0.2) D-Dimer (Sommer) 2.92 ug/mlFEU (0.00-0.50) Sodium Level 146 mmol/L (136-145) Potassium Level 5.5 mmol/L (3.5-5.1) Chloride Level 110 mmol/L (98-107) Carbon Dioxide Level 25 mmol/L (21-32) Anion Gap 11 (6-14) Blood Urea Nitrogen 37 mg/dL (7-20) Creatinine 1.1 mg/dL (0.6-1.0) Estimated GFR (Cockcroft-Gault) 51.4 BUN/Creatinine Ratio 34 (6-20) Glucose Level 157 mg/dL (70-99) Calcium Level 9.9 mg/dL (8.5-10.1) Total Bilirubin 0.4 mg/dL (0.2-1.0) Aspartate Amino Transf (AST/SGOT) 22 U/L (15-37) Alanine Aminotransferase (ALT/SGPT) 27 U/L (14-59) Alkaline Phosphatase 85 U/L (46-116) Total Protein 8.6 g/dL (6.4-8.2) Albumin 2.9 g/dL (3.4-5.0) Albumin/Globulin Ratio 0.5 (1.0-1.7) Test 08/05/20 07:40 08/05/20 08:00 Glucose (Fingerstick) 177 mg/dL (70-99) O2 Saturation 97 % (92-99) Arterial Blood pH 7.39 (7.35-7.45) Arterial Blood pCO2 at Patient Temp 41 mmHg (35-46) Arterial Blood pO2 at Patient Temp 98 mmHg (75-108) Arterial Blood HCO3 24 mmol/L (21-28) Arterial Blood Base Excess -1 mmol/L (-3-3) FiO2 25% bipap Medications Active Scripts Medications Dose Route/Sig Max Daily Dose Days Date Category Trulicity (Dulaglutide) 0.75 Mg/0.5 Ml Pen.injctr 0.75 Mg SQ WEEKLY 07/29/20 Reported Vitamin D3 (Cholecalciferol (Vitamin D3)) 125 Mcg Tablet 125 Mcg PO DAILY 07/29/20 Reported Omeprazole 40 Mg Capsule.dr 1 Cap PO DAILY 07/29/20 Reported Nystatin-Triamcinolone Cream (Nystatin/Triamcin) 15 Gm Cream..g. 1 Jing TP BID 07/29/20 Reported Mupirocin Ointment (Mupirocin) 22 Gm Oint...g. 1 Jing TP TID 07/29/20 Reported NICODERM CQ 21mg (Nicotine) 1 Each Patch.td24 1 Patch TP DAILY 07/29/20 Reported Clind Ph-Benzoyl Perox 1.2-5% (Clindamycin Phos/Benzoyl Perox) 45 Gm Gel.er..g. 1 Jing TP DAILY 30 07/29/20 Reported Cymbalta (Duloxetine Hcl) 60 Mg Capsule.dr 2 Cap PO DAILY 07/29/20 Reported Alprazolam 1 Mg Tablet 1 Tab PO TID 07/29/20 Reported [farxiga] 5 Mg 1 Tab PO DAILY 10/05/17 Reported Oxycodone Hcl Immed.release (Oxycodone Hcl) 30 Mg Tablet 1 Tab PO Q4HRS 10/05/17 Reported Spiriva (Tiotropium [place]) 18 Mcg Cap.w.dev 2 Inh IH PRN 10/05/17 Reported Lovastatin 20 Mg Tablet 20 Mg PO HS 10/05/17 Reported [place] 12.5-1,000 Mg Tablet (Alogliptin Jose/Metformin Hcl) 1 Each Tablet 1 Each PO DAILY 11/11/15 Reported Combivent Respimat Inhal (Ipratropium/Albuterol Sulfate) 4 Gm Aer.w.adap 2 Inh IH QID 03/13/15 Reported Impression . IMPRESSION: 1. Acute hypoxemic hypercapnic respiratory failure--improving 2. COVID-19 viral pneumonia. 3. Type 2 diabetes w/ hyperglycemia on steroids 4. Fibular fracture. 5. Recent out of hospital arrest. 6. Chronic posttraumatic stress syndrome. 7. Anxiety disorder. 8. History of bipolar disorder. 9. Morbid obesity. 10. Tobacco dependent. 11. Acute exacerbation of chronic obstructive pulmonary disease. 12. Coronary artery disease. 13. Hypertension. 14. Hyperlipidemia. 15. Combination of respiratory and metabolic acidosis--resolved Plan . PLAN: Continue supplemental oxygen to keep sats above 90% 6 min walk before discharge BIPAP at HS and PRN Patient may benefit from BIPAP/Trilogy at home at discharge Avoid sedative medications Follow nephrology recs -- DVT/GI PPX :lovenox/Protonix D/W KAIN WATT MD Aug 05, 2020 09:52
--- NOTE | 2020-08-05 11:52 | PDOC ---
DATE OF SERVICE DATE: 08/05/20 TIME: 11:41 SUBJECTIVE ROS Stable, No complaints/Concerns voiced by patient or Nursing OBJECTIVE Vital Signs Vital Signs Date Time Temp Pulse Resp B/P (MAP) Pulse Ox O2 Delivery O2 Flow Rate FiO2 08/05/20 08:23 81 225/103 08/05/20 08:16 99 Room Air 08/05/20 07:00 98.6 22 98.6 08/05/20 05:00 2.0 I & 0 Intake and Output 08/05/20 07:00 Intake Total 300 ml Balance 300 ml Intake Oral 300 ml # Voids 5 # Bowel Movements 3 PHYSICAL EXAM Physical Exam Gen NAD HEEN OM moist, No icterus, On RA (was on Bipap) Lungs No acc muscle use Neuro axoX3 CV S1S2 Patel \ DIAGNOSIS/ASSESSMENT Assessment & Plan FEROZ -Vasomotor/ resolved ; No labs ordered this morning . Supportive care, maintain hydration, Avoid nephrotoxins CKD stage 3A - baseline Cr 1-1.2 since 2015 HyperKalemia- yesterday, no labs ordered this morning, monitor HyperNatremia POA probabaly 2/2 water deficit Cat bite with associated cellulitis. Fracture of the lower extremity- Fibular fracture. Acute hypoxemic hypercapnic respiratory failure. COVID-19 viral pneumonia. Type 2 diabetes. Recent out of hospital arrest. Chronic posttraumatic stress syndrome. COMMENT/RELEVANT DATA Meds Current Medications Medications (Trade) Dose Ordered Sig/Honey Start Time Stop Time Status Last Admin Dose Admin Acetaminophen/ Hydrocodone Bitart (Lortab 5/325) 1 tab PRN Q4HRS PRN 08/02/20 17:00 Albuterol/ Ipratropium (Duoneb) 3 ml RTQID 07/30/20 08:00 07/31/20 11:33 DC 07/31/20 07:23 3 ML Alprazolam (Xanax) 0.5 mg PRN BID PRN 08/04/20 05:30 Atorvastatin Calcium (Lipitor) 5 mg QHS 07/30/20 21:00 08/04/20 22:58 5 MG Clonidine HCl (Catapres Tts-1) 1 patch WEEKLY 08/03/20 10:00 08/03/20 09:52 1 PATCH Dexamethasone (Decadron) 6 mg DAILYWBKFT 08/02/20 17:00 08/05/20 08:22 6 MG Dextrose (Dextrose 50%-Water Syringe) 12.5 gm PRN Q15MIN PRN 07/30/20 00:30 08/03/20 07:23 12.5 GM Duloxetine HCl (Cymbalta) 120 mg DAILY 07/30/20 09:00 08/05/20 08:21 120 MG Enoxaparin Sodium (Lovenox 40mg Syringe) 40 mg Q12H 08/04/20 09:00 08/05/20 08:22 40 MG Fentanyl Citrate (Fentanyl 2ml Vial) 25 mcg 1X ONCE 08/04/20 06:30 08/04/20 06:31 DC Gabapentin (Neurontin) 300 mg TID 07/30/20 09:00 08/05/20 08:21 300 MG Glyburide (Diabeta) 5 mg DAILY08 07/30/20 08:00 08/05/20 08:21 5 MG Hydralazine HCl (Apresoline Inj) 10 mg PRN Q4HRS PRN 08/04/20 11:15 08/05/20 08:23 10 MG Insulin Human Lispro (HumaLOG) 0-7 UNITS TIDWMEALS 07/30/20 08:00 08/05/20 08:27 3 UNITS Linagliptin (Tradjenta) 5 mg DAILY 07/30/20 09:00 08/05/20 08:21 5 MG Lisinopril (Prinivil) 20 mg DAILY 07/30/20 09:00 08/05/20 08:22 20 MG Lorazepam (Ativan Inj) 1 mg 1X ONCE 08/04/20 04:00 08/04/20 04:01 UNV Metformin HCl (Glucophage) 1,000 mg DAILY08 07/30/20 08:00 08/05/20 08:22 1,000 MG Mupirocin (Bactroban) 1 ileana TID 07/30/20 09:00 08/05/20 08:23 1 ILEANA Nicotine (Nicoderm Cq 21mg) 1 patch DAILY 07/29/20 23:55 08/05/20 08:21 1 PATCH Non-Formulary Medication (Clindamycin Phos/Benzoyl Perox (Clind Ph-Benzoyl Perox 1.2-5%)) 1 ilaena DAILY 07/30/20 09:00 08/02/20 07:31 DC Non-Formulary Medication (Non Formulary Item) 1 ea Fr@0900 08/02/20 09:00 08/02/20 07:31 DC Non-Formulary Medication (Tiotropium [place] (Spiriva)) 2 inh PRN 07/29/20 23:30 Cancel Non-Formulary Medication ([farxiga] ) 1 tab DAILY 07/30/20 09:00 08/02/20 07:31 DC Nystatin (Mycostatin) 1 ileana BID 07/30/20 09:00 08/05/20 08:23 1 ILEANA Ondansetron HCl (Zofran) 4 mg PRN Q6HRS PRN 08/04/20 05:30 Oxycodone HCl (Roxicodone) 20 mg PRN Q6HRS PRN 08/04/20 06:15 Pantoprazole Sodium (Protonix) 40 mg DAILYAC 07/30/20 07:30 08/05/20 08:22 40 MG Sodium Chloride 1,000 ml @ 75 mls/hr [id number] 08/04/20 06:30 08/05/20 09:30 75 MLS/HR Sucralfate (Carafate) 1 gm BIDAC 07/30/20 21:49 08/05/20 08:21 1 GM Triamcinolone Acetonide (Kenalog 0.1%) 1 ileana BID 07/30/20 09:00 08/05/20 08:23 1 ILEANA Vitamin D (Vitamin D3) 1,000 unit DAILY 07/30/20 09:00 08/05/20 08:21 1,000 UNIT Lab Laboratory Tests Test 08/04/20 11:45 08/04/20 16:37 08/04/20 19:32 08/05/20 07:40 White Blood Count 10.0 x10^3/uL (4.0-11.0) Red Blood Count 4.47 x10^6/uL (3.50-5.40) Hemoglobin 13.7 g/dL (12.0-15.5) Hematocrit 42.0 % (36.0-47.0) Mean Corpuscular Volume 94 fL (79-100) Mean Corpuscular Hemoglobin 31 pg (25-35) Mean Corpuscular Hemoglobin Concent 33 g/dL (31-37) Red Cell Distribution Width 14.8 % (11.5-14.5) Platelet Count 312 x10^3/uL (140-400) Neutrophils (%) (Auto) 79 % (31-73) Lymphocytes (%) (Auto) 12 % (24-48) Monocytes (%) (Auto) 8 % (0-9) Eosinophils (%) (Auto) 1 % (0-3) Basophils (%) (Auto) 0 % (0-3) Neutrophils # (Auto) 7.8 x10^3/uL (1.8-7.7) Lymphocytes # (Auto) 1.2 x10^3/uL (1.0-4.8) Monocytes # (Auto) 0.8 x10^3/uL (0.0-1.1) Eosinophils # (Auto) 0.1 x10^3/uL (0.0-0.7) Basophils # (Auto) 0.0 x10^3/uL (0.0-0.2) D-Dimer (Sommer) 2.92 ug/mlFEU (0.00-0.50) Sodium Level 146 mmol/L (136-145) Potassium Level 5.5 mmol/L (3.5-5.1) Chloride Level 110 mmol/L (98-107) Carbon Dioxide Level 25 mmol/L (21-32) Anion Gap 11 (6-14) Blood Urea Nitrogen 37 mg/dL (7-20) Creatinine 1.1 mg/dL (0.6-1.0) Estimated GFR (Cockcroft-Gault) 51.4 BUN/Creatinine Ratio 34 (6-20) Glucose Level 157 mg/dL (70-99) Calcium Level 9.9 mg/dL (8.5-10.1) Total Bilirubin 0.4 mg/dL (0.2-1.0) Aspartate Amino Transf (AST/SGOT) 22 U/L (15-37) Alanine Aminotransferase (ALT/SGPT) 27 U/L (14-59) Alkaline Phosphatase 85 U/L (46-116) Total Protein 8.6 g/dL (6.4-8.2) Albumin 2.9 g/dL (3.4-5.0) Albumin/Globulin Ratio 0.5 (1.0-1.7) Glucose (Fingerstick) 198 mg/dL (70-99) 163 mg/dL (70-99) 177 mg/dL (70-99) Test 08/05/20 08:00 08/05/20 11:31 O2 Saturation 97 % (92-99) Arterial Blood pH 7.39 (7.35-7.45) Arterial Blood pCO2 at Patient Temp 41 mmHg (35-46) Arterial Blood pO2 at Patient Temp 98 mmHg (75-108) Arterial Blood HCO3 24 mmol/L (21-28) Arterial Blood Base Excess -1 mmol/L (-3-3) FiO2 25% bipap Glucose (Fingerstick) 122 mg/dL (70-99) Results All relevant outside records, renal labs, imaging studies, telemetry/EKG's were reviewed. Justicifation of Admission Dx: Justifications for Admission: Justification of Admission Dx: N/A BRADLEY VUONG MD Aug 05, 2020 11:51
--- NOTE | 2020-08-05 12:55 | PDOC ---
PROGRESS NOTES Date of Service DATE: 08/05/20 TIME: 12:49 Subjective Subjective Patient sitting up in chair and reports she is doing much better. Spoke to her cousin/niece Ed this am and feeling emotionally better as a result. Wanted to make sure I was wearing 2 masks. States that her left knee hurts. Requests that nurses tell her what meds they are giving her- would prefer not to take pills but if she understands what they are she will feel better about the care plan. Does not have good recollection of Wednesday night when she was refusing all meds and spitting out even her pain med and her antianxiety medication. She also had not been eating all day Sat. per nursing and had minimal po fluids. In addition she had no nicoderm patch on. Denies any nausea or abdominal pain. Objective Objective Vital Signs Date Time Temp Pulse Resp B/P (MAP) Pulse Ox O2 Delivery O2 Flow Rate FiO2 08/05/20 11:00 98.2 73 20 145/81 (102) 93 Nasal Cannula 3.0 98.2 Intake and Output 08/05/20 07:00 Intake Total 300 ml Balance 300 ml Intake Oral 300 ml # Voids 5 # Bowel Movements 3 Physical Exam Physical Exam Sitting in chair eating lunch. Color much improved, well groomed. Lungs are clear but has decreased BS at bases still. Heart is reg. Abdomen- obese, soft, BS OK. Extremities- left lateral knee joint and distally over proximal fibula is tender to palpation. No edema. Right lower leg is not erythematous. Her mentation is back to normal. I note that she has not received her decreased dose of both her anxiolytic and oxycodone for last 24 hours at least. When patient was so agitated Wednesday night /Wednesday I was on phone with nurse and nurse reported O2 Sats were above 90%. By that time she had not received any narcotic medication for at least 36 hours per nursing, nor any anxiolytic for same time. Plus she had no nicoderm patch. I thought that her agitation could be due to withdrawal from all three and ordered nicoderm patch replaced, and one dose of ativan IV and a dose of fentanyl IV. Also patient was given a liter of NS IV and labs ordered for the 04 of August. Patient apparently calmed down and slept comfortably without agitation thru the rest of the early AM. When I called back in early childhood aide classroom she was still oxygenating OK and was more back to cooperative behavior. Abdomen: Normal bowel sounds (Eating her lunch at present. Has an appetite today.) Diagnosis DIAGNOSIS . 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 [facility] chronic use of anxiolytic medication. Nicotine addiction. Nausea resolved. Hyperkalemia improving. Covid COPD exacerbation. CO2 retention. Sleep apnea. Diabetes Type 2- sugars fair. Htn- not well controlled- appreciate Doctor Chandana's attention to this. Cat bite with cellulitis improving. CKD STage 3 with increase in baseline Cr. to 2.4 this hospitalization. Left proximal nondisplaced fibular fracture.- Ortho did see patient in Consult on Wednesday during patient's first admission last week. will ask that consult be aded to this chart and will ask for follow up from Ortho as well. She has been following Ortho recommendations for physical therapy and leg immobilizer. Assessment Assessment She seems to be improving and she is now of mindeset to cooperate although she is not necessarily more trusting. Appreciate Dr. Rushing's input and consult from nephrology. thanks to Dr. Ellington for covering this weekend. Will Ortho to follow up on patient's progress. Until her Covid is improved and she is stable she can not be transferred to [facility] or Rehab for her fracture. However she is working with therapy here to hopefully help her be self sufficient when ready to leave hospital.(She lives alone and has no one that can assist her at home). Plan Plan of Care Continue present care. Recheck CBC and CMP. Encourage po fluids. Give her pain meds and anxiolytic on schedule. Note that these have been decreased in dose. Also make sure her Nicoderm patch stays on. See orders. Comment Review of Relevant I have reviewed the following items savita (where applicable) has been applied. Labs Laboratory Tests Test 08/03/20 17:07 08/03/20 20:35 08/04/20 07:14 08/04/20 07:37 Glucose (Fingerstick) 116 mg/dL (70-99) 157 mg/dL (70-99) 123 mg/dL (70-99) O2 Saturation 96 % (92-99) Arterial Blood pH 7.32 (7.35-7.45) Arterial Blood pCO2 at Patient Temp 48 mmHg (35-46) Arterial Blood pO2 at Patient Temp 92 mmHg (75-108) Arterial Blood HCO3 24 mmol/L (21-28) Arterial Blood Base Excess -2 mmol/L (-3-3) FiO2 25% bipap Test 08/04/20 11:35 08/04/20 11:45 08/04/20 16:37 08/04/20 19:32 Glucose (Fingerstick) 151 mg/dL (70-99) 198 mg/dL (70-99) 163 mg/dL (70-99) White Blood Count 10.0 x10^3/uL (4.0-11.0) Red Blood Count 4.47 x10^6/uL (3.50-5.40) Hemoglobin 13.7 g/dL (12.0-15.5) Hematocrit 42.0 % (36.0-47.0) Mean Corpuscular Volume 94 fL (79-100) Mean Corpuscular Hemoglobin 31 pg (25-35) Mean Corpuscular Hemoglobin Concent 33 g/dL (31-37) Red Cell Distribution Width 14.8 % (11.5-14.5) Platelet Count 312 x10^3/uL (140-400) Neutrophils (%) (Auto) 79 % (31-73) Lymphocytes (%) (Auto) 12 % (24-48) Monocytes (%) (Auto) 8 % (0-9) Eosinophils (%) (Auto) 1 % (0-3) Basophils (%) (Auto) 0 % (0-3) Neutrophils # (Auto) 7.8 x10^3/uL (1.8-7.7) Lymphocytes # (Auto) 1.2 x10^3/uL (1.0-4.8) Monocytes # (Auto) 0.8 x10^3/uL (0.0-1.1) Eosinophils # (Auto) 0.1 x10^3/uL (0.0-0.7) Basophils # (Auto) 0.0 x10^3/uL (0.0-0.2) D-Dimer (Sommer) 2.92 ug/mlFEU (0.00-0.50) Sodium Level 146 mmol/L (136-145) Potassium Level 5.5 mmol/L (3.5-5.1) Chloride Level 110 mmol/L (98-107) Carbon Dioxide Level 25 mmol/L (21-32) Anion Gap 11 (6-14) Blood Urea Nitrogen 37 mg/dL (7-20) Creatinine 1.1 mg/dL (0.6-1.0) Estimated GFR (Cockcroft-Gault) 51.4 BUN/Creatinine Ratio 34 (6-20) Glucose Level 157 mg/dL (70-99) Calcium Level 9.9 mg/dL (8.5-10.1) Total Bilirubin 0.4 mg/dL (0.2-1.0) Aspartate Amino Transf (AST/SGOT) 22 U/L (15-37) Alanine Aminotransferase (ALT/SGPT) 27 U/L (14-59) Alkaline Phosphatase 85 U/L (46-116) Total Protein 8.6 g/dL (6.4-8.2) Albumin 2.9 g/dL (3.4-5.0) Albumin/Globulin Ratio 0.5 (1.0-1.7) Test 08/05/20 07:40 08/05/20 08:00 08/05/20 11:31 Glucose (Fingerstick) 177 mg/dL (70-99) 122 mg/dL (70-99) O2 Saturation 97 % (92-99) Arterial Blood pH 7.39 (7.35-7.45) Arterial Blood pCO2 at Patient Temp 41 mmHg (35-46) Arterial Blood pO2 at Patient Temp 98 mmHg (75-108) Arterial Blood HCO3 24 mmol/L (21-28) Arterial Blood Base Excess -1 mmol/L (-3-3) FiO2 25% bipap Laboratory Tests Test 08/04/20 16:37 08/04/20 19:32 08/05/20 07:40 08/05/20 08:00 Glucose (Fingerstick) 198 mg/dL (70-99) 163 mg/dL (70-99) 177 mg/dL (70-99) O2 Saturation 97 % (92-99) Arterial Blood pH 7.39 (7.35-7.45) Arterial Blood pCO2 at Patient Temp 41 mmHg (35-46) Arterial Blood pO2 at Patient Temp 98 mmHg (75-108) Arterial Blood HCO3 24 mmol/L (21-28) Arterial Blood Base Excess -1 mmol/L (-3-3) FiO2 25% bipap Test 08/05/20 11:31 Glucose (Fingerstick) 122 mg/dL (70-99) Medications Current Medications Nicotine (Nicoderm Cq 21mg) 1 patch DAILY TD Last administered on 08/05/20at 08:21; Start 07/29/20 at 23:55 Alprazolam (Xanax) 1 mg PRN Q8HRS PRN PO ANXIETY / AGITATION Last administered on 07/31/20at 19:20; Start 07/29/20 at 23:15; Stop 08/02/20 at 13:36; Status DC Oxycodone HCl (Roxicodone) 30 mg PRN Q4HRS PRN PO PAIN Last administered on 08/01/20at 06:35; Start 07/29/20 at 23:15; Stop 08/02/20 at 13:36; Status DC Glyburide (Diabeta) 5 mg DAILY08 PO Last administered on 08/05/20 08:21; Start 07/30/20 at 08:00 Mupirocin (Bactroban) 1 jing TID TP Last administered on 08/05/20at 08:23; Start 07/30/20 at 09:00 Linagliptin (Tradjenta) 5 mg DAILY PO Last administered on 08/05/20at 08:21; Start 07/30/20 at 09:00 Vitamin D (Vitamin D3) 1,000 unit DAILY PO Last administered on 08/05/20at 08:21; Start 07/30/20 at 09:00 Non-Formulary Medication (Clindamycin Phos/Benzoyl Perox (Clind Ph-Benzoyl Perox 1.2-5%)) 1 jing DAILY TP ; Start 07/30/20 at 09:00; Stop 08/02/20 at 07:31; Status DC Duloxetine HCl (Cymbalta) 120 mg DAILY PO Last administered on 08/05/20at 08:21; Start 07/30/20 at 09:00 Albuterol/ Ipratropium (Duoneb) 3 ml RTQID NEB Last administered on 07/31/20at 07:23; Start 07/30/20 at 08:00; Stop 07/31/20 at 11:33; Status DC Atorvastatin Calcium (Lipitor) 5 mg QHS PO Last administered on 08/04/20at 22:58; Start 07/30/20 at 21:00 Nystatin (Mycostatin) 1 jing BID TP Last administered on 08/05/20at 08:23; Start 07/30/20 at 09:00 Pantoprazole Sodium (Protonix) 40 mg DAILYAC PO Last administered on 08/05/20at 08:22; Start 07/30/20 at 07:30 Non-Formulary Medication (Tiotropium [place] (Spiriva)) 2 inh PRN IH ; Start 07/29/20 at 23:30; Status Cancel Non-Formulary Medication ([farxiga] ) 1 tab DAILY PO ; Start 07/30/20 at 09:00; Stop 08/02/20 at 07:31; Status DC Lisinopril (Prinivil) 20 mg DAILY PO Last administered on 08/05/20at 08:22; Start 07/30/20 at 09:00 Gabapentin (Neurontin) 300 mg TID PO Last administered on 08/05/20at 08:21; Start 07/30/20 at 09:00 Metformin HCl (Glucophage) 1,000 mg DAILY08 PO Last administered on 08/05/20at 08:22; Start 07/30/20 at 08:00 Triamcinolone Acetonide (Kenalog 0.1%) 1 jing BID TP Last administered on 08/05/20at 08:23; Start 07/30/20 at 09:00 Insulin Human Lispro (HumaLOG) 0-7 UNITS TIDWMEALS SQ Last administered on 08/05/20at 08:27; Start 07/30/20 at 08:00 Dextrose (Dextrose 50%-Water Syringe) 12.5 gm PRN Q15MIN PRN IV SEE COMMENTS Last administered on 08/03/20at 07:23; Start 07/30/20 at 00:30 Non-Formulary Medication (Non Formulary Item) 1 ea Fr@0900 SQ ; Start 08/02/20 at 09:00; Stop 08/02/20 at 07:31; Status DC Sucralfate (Carafate) 1 gm BIDAC PO Last administered on 08/05/20at 08:21; Start 07/30/20 at 21:49 Alprazolam (Xanax) 0.5 mg PRN Q8HRS PRN PO ANXIETY / AGITATION; Start 08/02/20 at 13:45; Stop 08/02/20 at 14:34; Status DC Oxycodone HCl (Roxicodone) 20 mg PRN Q4HRS PRN PO PAIN; Start 08/02/20 at 13:45; Stop 08/02/20 at 16:50; Status DC Dexamethasone (Decadron) 6 mg DAILYWBKFT PO Last administered on 08/05/20at 08:22; Start 08/02/20 at 17:00 Acetaminophen/ Hydrocodone Bitart (Lortab 5/325) 1 tab PRN Q4HRS PRN PO PAIN; Start 08/02/20 at 17:00 Clonidine HCl (Catapres Tts-1) 1 patch WEEKLY TD Last administered on 08/03/20at 09:52; Start 08/03/20 at 10:00 Alprazolam (Xanax) 1 mg 1X ONCE PO ; Start 08/04/20 at 03:00; Stop 08/04/20 at 03:01; Status DC Alprazolam (Xanax) 0.5 mg 1X ONCE PO ; Start 08/04/20 at 03:30; Stop 08/04/20 at 03:31; Status DC Lorazepam (Ativan Inj) 0.5 mg 1X ONCE IVP ; Start 08/04/20 at 03:30; Stop 08/04/20 at 03:31; Status DC Lorazepam (Ativan Inj) 1 mg 1X ONCE IVP Last administered on 08/04/20at 04:00; Start 08/04/20 at 04:30; Stop 08/04/20 at 04:31; Status DC Lorazepam (Ativan Inj) 1 mg 1X ONCE IVP ; Start 08/04/20 at 04:00; Stop 08/04/20 at 04:01; Status UNV Oxycodone HCl (Roxicodone) 20 mg PRN Q6HRS PRN PO SEVERE PAIN 7-10; Start at 06:15 Alprazolam (Xanax) 0.5 mg PRN BID PRN PO ANXIETY / AGITATION; Start 08/04/20 at 05:30 Fentanyl Citrate (Fentanyl 2ml Vial) 25 mcg 1X ONCE IVP ; Start 08/04/20 at 06:30; Stop 08/04/20 at 06:31; Status DC Ondansetron HCl (Zofran) 4 mg PRN Q6HRS PRN IVP NAUSEA/VOMITING 1ST CHOICE; Start 08/04/20 at 05:30 Sodium Chloride 1,000 ml @ 75 mls/hr [id number] IV Last administered on 08/05/20at 09:30; Start 08/04/20 at 06:30 Enoxaparin Sodium (Lovenox 40mg Syringe) 40 mg Q12H SQ Last administered on 08/05/20at 08:22; Start 08/04/20 at 09:00 Hydralazine HCl (Apresoline Inj) 10 mg PRN Q4HRS PRN IVP ELEVATED BP, SEE COMMENTS Last administered on 08/05/20at 08:23; Start 08/04/20 at 11:15 Amlodipine Besylate (Norvasc) 5 mg DAILY PO ; Start 08/05/20 at 12:15 Active Scripts Active Reported Trulicity (Dulaglutide) 0.75 Mg/0.5 Ml Pen.injctr 0.75 Mg SQ WEEKLY Vitamin D3 (Cholecalciferol (Vitamin D3)) 125 Mcg Tablet 125 Mcg PO DAILY Omeprazole 40 Mg Capsule.dr 1 Cap PO DAILY Nystatin-Triamcinolone Cream (Nystatin/Triamcin) 15 Gm Cream..g. 1 Jing TP BID Mupirocin Ointment (Mupirocin) 22 Gm Oint...g. 1 Jing TP TID NICODERM CQ 21mg (Nicotine) 1 Each Patch.td24 1 Patch TP DAILY Clind Ph-Benzoyl Perox 1.2-5% (Clindamycin Phos/Benzoyl Perox) 45 Gm Gel.er..g. 1 Jing TP DAILY 30 Days Cymbalta (Duloxetine Hcl) 60 Mg Capsule.dr 2 Cap PO DAILY Alprazolam 1 Mg Tablet 1 Tab PO TID [farxiga] 5 Mg 1 Tab PO DAILY Oxycodone Hcl Immed.release (Oxycodone Hcl) 30 Mg Tablet 1 Tab PO Q4HRS Spiriva (Tiotropium [place]) 18 Mcg Cap.w.dev 2 Inh IH PRN Lovastatin 20 Mg Tablet 20 Mg PO HS Kazano 12.5-1,000 Mg Tablet (Alogliptin Jose/Metformin Hcl) 1 Each Tablet 1 Each PO DAILY Combivent Respimat Inhal (Ipratropium/Albuterol Sulfate) 4 Gm Aer.w.adap 2 Inh IH QID Vitals/I & O Vital Sign - Last 24 Hours 08/04/20 08/04/20 08/04/20 08/04/20 13:18 15:00 15:30 16:48 Temp 98.4 98.4 Pulse 121 85 Resp 20 20 B/P (MAP) 206/119 (148) 191/105 (133) Pulse Ox 98 94 98 97 O2 Delivery BiPAP/CPAP Room Air BiPAP/CPAP BiPAP/CPAP 08/04/20 08/04/20 08/04/20 08/04/20 18:12 19:00 20:10 20:25 Temp 97.7 97.7 Pulse 85 110 Resp 19 B/P (MAP) 191/105 205/97 (133) Pulse Ox 100 95 O2 Delivery BiPAP/CPAP BiPAP/CPAP Bi-pap 08/04/20 08/04/20 08/05/20 08/05/20 22:54 22:59 00:13 01:52 Temp 97.8 97.8 Pulse 127 127 Resp 18 B/P (MAP) 190/134 (152) 190/134 Pulse Ox 99 99 99 O2 Delivery BiPAP/CPAP BiPAP/CPAP BiPAP/CPAP 08/05/20 08/05/20 08/05/20 08/05/20 02:57 03:03 05:00 07:00 Temp 97.8 97.8 98.6 97.8 97.8 98.6 Pulse 95 95 81 Resp 18 22 B/P (MAP) 237/111 (153) 237/111 (153) 225/103 (143) Pulse Ox 98 98 98 99 O2 Delivery BiPAP/CPAP BiPAP/CPAP BiPAP/CPAP O2 Flow Rate 2.0 08/05/20 08/05/20 08/05/20 08/05/20 07:45 08:13 08:16 08:22 Pulse 81 B/P (MAP) 225/103 Pulse Ox 98 99 O2 Delivery Nasal Cannula BiPAP/CPAP Room Air O2 Flow Rate 30.0 08/05/20 08/05/20 08:23 11:00 Temp 98.2 98.2 Pulse 81 73 Resp 20 B/P (MAP) 225/103 145/81 (102) Pulse Ox 93 O2 Delivery Nasal Cannula O2 Flow Rate 3.0 Intake and Output 08/04/20 08/04/20 08/05/20 15:00 23:00 07:00 Intake Total 0 ml 300 ml Balance 0 ml 300 ml Justifications for Admission Other Justification TERRY ALTMAN MD Aug 05, 2020 12:55
[2020-08-05 14:04] LABS: BASO % 0 % (0-3); EOS # 0.1 x10^3/uL (0.0-0.7); EOS % 1 % (0-3); HEMATOCRIT 38.9 % (36.0-47.0); LYMPH # 1.2 x10^3/uL (1.0-4.8); LYMPH % 11 % (24-48); MEAN CORPUSCULAR HEMOGLOBIN 31 pg (25-35); MEAN CORPUSCULAR HGB CONC 33 g/dL (31-37); MEAN CORPUSCULAR VOLUME 92 fL (79-100); MONO # 0.5 x10^3/uL (0.0-1.1); MONO % 4 % (0-9); NEUT # 9.2 x10^3/uL (1.8-7.7); NEUT % 84 % (31-73); PLATELET COUNT 357 x10^3/uL (140-400); RED BLOOD COUNT 4.23 x10^6/uL (3.50-5.40); RED CELL DISTRIBUTION WIDTH 14.4 % (11.5-14.5); WHITE BLOOD COUNT 10.9 x10^3/uL (4.0-11.0)
[2020-08-05] MEDS: ALPRAZolam 0.5 MG TABLET PO SCH ×2 (15:16→21:14)
[2020-08-05] MEDS: oxyCODONE IR 5 MG TABLET PO SCH ×4 (15:17→23:00)
--- NOTE | 2020-08-05 16:04 | NUR ---
SW following. Discussed with RN, pt from home, apparently has a caregiver. Therapy still recommending SNF. SW spoke with pt, she is agreeable. [facility] are taking COVID+ after 10 days. Pt agreeable. SW faxed referral to [facility]. RN notified. SW will continue to follow.
[2020-08-05] MEDS: ATORVASTATIN CALCIUM 10 MG TABLET. PO SCH (21:14)
[2020-08-06 02:46] VITALS: BP 113/55
[2020-08-06 07:00] VITALS: BP 115/56
[2020-08-06] MEDS: INSULIN LISPRO 300 UNITS/3 ML VIAL. SQ SCH ×3 (08:00→17:57)
[2020-08-06] MEDS: ENOXAPARIN 40 MG/0.4 ML SYRINGE. SQ SCH ×2 (09:12→21:58)
[2020-08-06] MEDS: NICOTINE 21MG PATCH. TD SCH (09:12)
[2020-08-06] MEDS: LISINOPRIL 20 MG TABLET PO SCH (09:12)
[2020-08-06] MEDS: GABAPENTIN 300 MG CAPSULE. PO SCH ×3 (09:13→21:58)
[2020-08-06] MEDS: ALPRAZolam 0.5 MG TABLET PO SCH ×2 (09:13→21:58)
[2020-08-06] MEDS: oxyCODONE IR 5 MG TABLET PO SCH ×4 (09:13→21:58)
[2020-08-06] MEDS: DULoxetine HCL 30 MG CAPSULE.DR PO SCH (09:13)
[2020-08-06] MEDS: DEXAMETHASONE 4 MG TABLET PO SCH (09:13)
[2020-08-06] MEDS: SUCRALFATE 1 GM TABLET. PO SCH ×2 (09:15→17:56)
[2020-08-06] MEDS: CHOLECALCIFEROL (VITAMIN D3) 1,000 UNIT TABLET PO SCH (09:15)
[2020-08-06] MEDS: PANTOPRAZOLE 40 MG TABLET.DR. PO SCH (09:15)
[2020-08-06] MEDS: NYSTATIN 100,000 UNIT/GM TOPICAL CREAM 15GM TUBE. TP SCH ×2 (09:16→21:00)
[2020-08-06] MEDS: MUPIROCIN 2 % NASAL OINTMENT 22GM TUBE. TP SCH ×3 (09:16→21:00)
[2020-08-06] MEDS: TRIAMCINOLONE ACETONIDE 0.1% TOPICAL CREAM 15GM TUBE. TP SCH ×2 (09:16→21:00)
[2020-08-06 09:46] LABS: CALCIUM 8.8 mg/dL (8.5-10.1); CREATININE 2.2 mg/dL (0.6-1.0); GFR 23.1; POTASSIUM 4.6 mmol/L (3.5-5.1)
--- NOTE | 2020-08-06 10:15 | PDOC ---
PULMONARY PROGRESS NOTES DATE: 08/06/20 TIME: 10:15 Subjective Remains on 3 liters NC afebrile no increased cough or SOB no overnight events Vitals Vital Signs Date Time Temp Pulse Resp B/P (MAP) Pulse Ox O2 Delivery O2 Flow Rate FiO2 08/06/20 09:14 62 115/56 08/06/20 09:13 Nasal Cannula 3.0 08/06/20 08:12 99 08/06/20 07:00 97.9 18 97.9 ROS: No Nausea, No Chest Pain, No Abdominal Pain, No Increase Cough General: Alert Lungs: Clear Cardiovascular: S1, S2 Abdomen: Soft, Non-tender, Other (obese) Neuro Exam: Alert Skin: Warm Labs Laboratory Tests Test 08/04/20 11:35 08/04/20 11:45 08/04/20 16:37 08/04/20 19:32 Glucose (Fingerstick) 151 mg/dL (70-99) 198 mg/dL (70-99) 163 mg/dL (70-99) White Blood Count 10.0 x10^3/uL (4.0-11.0) Red Blood Count 4.47 x10^6/uL (3.50-5.40) Hemoglobin 13.7 g/dL (12.0-15.5) Hematocrit 42.0 % (36.0-47.0) Mean Corpuscular Volume 94 fL (79-100) Mean Corpuscular Hemoglobin 31 pg (25-35) Mean Corpuscular Hemoglobin Concent 33 g/dL (31-37) Red Cell Distribution Width 14.8 % (11.5-14.5) Platelet Count 312 x10^3/uL (140-400) Neutrophils (%) (Auto) 79 % (31-73) Lymphocytes (%) (Auto) 12 % (24-48) Monocytes (%) (Auto) 8 % (0-9) Eosinophils (%) (Auto) 1 % (0-3) Basophils (%) (Auto) 0 % (0-3) Neutrophils # (Auto) 7.8 x10^3/uL (1.8-7.7) Lymphocytes # (Auto) 1.2 x10^3/uL (1.0-4.8) Monocytes # (Auto) 0.8 x10^3/uL (0.0-1.1) Eosinophils # (Auto) 0.1 x10^3/uL (0.0-0.7) Basophils # (Auto) 0.0 x10^3/uL (0.0-0.2) D-Dimer (Sommer) 2.92 ug/mlFEU (0.00-0.50) Sodium Level 146 mmol/L (136-145) Potassium Level 5.5 mmol/L (3.5-5.1) Chloride Level 110 mmol/L (98-107) Carbon Dioxide Level 25 mmol/L (21-32) Anion Gap 11 (6-14) Blood Urea Nitrogen 37 mg/dL (7-20) Creatinine 1.1 mg/dL (0.6-1.0) Estimated GFR (Cockcroft-Gault) 51.4 BUN/Creatinine Ratio 34 (6-20) Glucose Level 157 mg/dL (70-99) Calcium Level 9.9 mg/dL (8.5-10.1) Total Bilirubin 0.4 mg/dL (0.2-1.0) Aspartate Amino Transf (AST/SGOT) 22 U/L (15-37) Alanine Aminotransferase (ALT/SGPT) 27 U/L (14-59) Alkaline Phosphatase 85 U/L (46-116) Total Protein 8.6 g/dL (6.4-8.2) Albumin 2.9 g/dL (3.4-5.0) Albumin/Globulin Ratio 0.5 (1.0-1.7) Test 08/05/20 07:40 08/05/20 08:00 08/05/20 11:31 08/05/20 13:55 Glucose (Fingerstick) 177 mg/dL (70-99) 122 mg/dL (70-99) O2 Saturation 97 % (92-99) Arterial Blood pH 7.39 (7.35-7.45) Arterial Blood pCO2 at Patient Temp 41 mmHg (35-46) Arterial Blood pO2 at Patient Temp 98 mmHg (75-108) Arterial Blood HCO3 24 mmol/L (21-28) Arterial Blood Base Excess -1 mmol/L (-3-3) FiO2 25% bipap White Blood Count 10.9 x10^3/uL (4.0-11.0) Red Blood Count 4.23 x10^6/uL (3.50-5.40) Hemoglobin 13.0 g/dL (12.0-15.5) Hematocrit 38.9 % (36.0-47.0) Mean Corpuscular Volume 92 fL (79-100) Mean Corpuscular Hemoglobin 31 pg (25-35) Mean Corpuscular Hemoglobin Concent 33 g/dL (31-37) Red Cell Distribution Width 14.4 % (11.5-14.5) Platelet Count 357 x10^3/uL (140-400) Neutrophils (%) (Auto) 84 % (31-73) Lymphocytes (%) (Auto) 11 % (24-48) Monocytes (%) (Auto) 4 % (0-9) Eosinophils (%) (Auto) 1 % (0-3) Basophils (%) (Auto) 0 % (0-3) Neutrophils # (Auto) 9.2 x10^3/uL (1.8-7.7) Lymphocytes # (Auto) 1.2 x10^3/uL (1.0-4.8) Monocytes # (Auto) 0.5 x10^3/uL (0.0-1.1) Eosinophils # (Auto) 0.1 x10^3/uL (0.0-0.7) Basophils # (Auto) 0.0 x10^3/uL (0.0-0.2) Test 08/05/20 16:32 08/05/20 19:30 08/06/20 07:48 08/06/20 08:40 Glucose (Fingerstick) 235 mg/dL (70-99) 121 mg/dL (70-99) 73 mg/dL (70-99) Sodium Level 140 mmol/L (136-145) Potassium Level 4.6 mmol/L (3.5-5.1) Chloride Level 107 mmol/L (98-107) Carbon Dioxide Level 24 mmol/L (21-32) Anion Gap 9 (6-14) Blood Urea Nitrogen 54 mg/dL (7-20) Creatinine 2.2 mg/dL (0.6-1.0) Estimated GFR (Cockcroft-Gault) 23.1 Glucose Level 75 mg/dL (70-99) Calcium Level 8.8 mg/dL (8.5-10.1) Laboratory Tests Test 08/05/20 11:31 08/05/20 13:55 08/05/20 16:32 08/05/20 19:30 Glucose (Fingerstick) 122 mg/dL (70-99) 235 mg/dL (70-99) 121 mg/dL (70-99) White Blood Count 10.9 x10^3/uL (4.0-11.0) Red Blood Count 4.23 x10^6/uL (3.50-5.40) Hemoglobin 13.0 g/dL (12.0-15.5) Hematocrit 38.9 % (36.0-47.0) Mean Corpuscular Volume 92 fL (79-100) Mean Corpuscular Hemoglobin 31 pg (25-35) Mean Corpuscular Hemoglobin Concent 33 g/dL (31-37) Red Cell Distribution Width 14.4 % (11.5-14.5) Platelet Count 357 x10^3/uL (140-400) Neutrophils (%) (Auto) 84 % (31-73) Lymphocytes (%) (Auto) 11 % (24-48) Monocytes (%) (Auto) 4 % (0-9) Eosinophils (%) (Auto) 1 % (0-3) Basophils (%) (Auto) 0 % (0-3) Neutrophils # (Auto) 9.2 x10^3/uL (1.8-7.7) Lymphocytes # (Auto) 1.2 x10^3/uL (1.0-4.8) Monocytes # (Auto) 0.5 x10^3/uL (0.0-1.1) Eosinophils # (Auto) 0.1 x10^3/uL (0.0-0.7) Basophils # (Auto) 0.0 x10^3/uL (0.0-0.2) Test 08/06/20 07:48 08/06/20 08:40 Glucose (Fingerstick) 73 mg/dL (70-99) Sodium Level 140 mmol/L (136-145) Potassium Level 4.6 mmol/L (3.5-5.1) Chloride Level 107 mmol/L (98-107) Carbon Dioxide Level 24 mmol/L (21-32) Anion Gap 9 (6-14) Blood Urea Nitrogen 54 mg/dL (7-20) Creatinine 2.2 mg/dL (0.6-1.0) Estimated GFR (Cockcroft-Gault) 23.1 Glucose Level 75 mg/dL (70-99) Calcium Level 8.8 mg/dL (8.5-10.1) Medications Active Scripts Medications Dose Route/Sig Max Daily Dose Days Date Category Trulicity (Dulaglutide) 0.75 Mg/0.5 Ml Pen.injctr 0.75 Mg SQ WEEKLY 07/29/20 Reported Vitamin D3 (Cholecalciferol (Vitamin D3)) 125 Mcg Tablet 125 Mcg PO DAILY 07/29/20 Reported Omeprazole 40 Mg Capsule.dr 1 Cap PO DAILY 07/29/20 Reported Nystatin-Triamcinolone Cream (Nystatin/Triamcin) 15 Gm Cream..g. 1 Jing TP BID 07/29/20 Reported Mupirocin Ointment (Mupirocin) 22 Gm Oint...g. 1 Jing TP TID 07/29/20 Reported NICODERM CQ 21mg (Nicotine) 1 Each Patch.td24 1 Patch TP DAILY 07/29/20 Reported Clind Ph-Benzoyl Perox 1.2-5% (Clindamycin Phos/Benzoyl Perox) 45 Gm Gel.er..g. 1 Jing TP DAILY 30 07/29/20 Reported Cymbalta (Duloxetine Hcl) 60 Mg Capsule.dr 2 Cap PO DAILY 07/29/20 Reported Alprazolam 1 Mg Tablet 1 Tab PO TID 07/29/20 Reported [farxiga] 5 Mg 1 Tab PO DAILY 10/05/17 Reported Oxycodone Hcl Immed.release (Oxycodone Hcl) 30 Mg Tablet 1 Tab PO Q4HRS 10/05/17 Reported Spiriva (Tiotropium [place]) 18 Mcg Cap.w.dev 2 Inh IH PRN 10/05/17 Reported Lovastatin 20 Mg Tablet 20 Mg PO HS 10/05/17 Reported Kazano 12.5-1,000 Mg Tablet (Alogliptin Jose/Metformin Hcl) 1 Each Tablet 1 Each PO DAILY 11/11/15 Reported Combivent Respimat Inhal (Ipratropium/Albuterol Sulfate) 4 Gm Aer.w.adap 2 Inh IH QID 03/13/15 Reported Impression . IMPRESSION: 1. Acute hypoxemic hypercapnic respiratory failure--improving 2. COVID-19 viral pneumonia. 3. Type 2 diabetes w/ hyperglycemia on steroids 4. Fibular fracture. 5. Recent out of hospital arrest. 6. Chronic posttraumatic stress syndrome. 7. Anxiety disorder. 8. History of bipolar disorder. 9. Morbid obesity. 10. Tobacco dependent. 11. Acute exacerbation of chronic obstructive pulmonary disease. 12. Coronary artery disease. 13. Hypertension. 14. Hyperlipidemia. 15. Combination of respiratory and metabolic acidosis--resolved Plan . PLAN: Continue to clinically improve Continue supplemental oxygen to keep sats above 90% Continue steroids, will need full 10 day course BIPAP at HS and PRN Avoid sedative medications Follow nephrology recs -- worsening renal function DVT/GI PPX D/W social sciences instructor for DC planning -- KAIN LEE MD Aug 06, 2020 10:15
[2020-08-06 11:00] VITALS: BP 115/58
--- NOTE | 2020-08-06 11:25 | PDOC ---
DATE OF SERVICE DATE: 08/06/20 TIME: 11:19 SUBJECTIVE ROS Stable, No complaints/Concerns voiced by patient or Nursing OBJECTIVE Vital Signs Vital Signs Date Time Temp Pulse Resp B/P (MAP) Pulse Ox O2 Delivery O2 Flow Rate FiO2 08/06/20 09:14 62 115/56 08/06/20 09:13 Nasal Cannula 3.0 08/06/20 08:12 99 08/06/20 07:00 97.9 18 97.9 I & 0 l Intake and Output 08/06/20 07:00 Intake Total 800 ml Balance 800 ml Intake Oral 800 ml # Voids 2 PHYSICAL EXAM Physical Exam Gen NAD HEEN OM moist, No icterus, On NC O2 Lungs No acc muscle use Neuro axoX3 CV S1S2 Patel \ DIAGNOSIS/ASSESSMENT Assessment & Plan FEROZ -Vasomotor/ did resolve ; Worse again 2/2 ? Drop in BP from 200's systolic ; Ordered UA and Renal US ,Supportive care, maintain hydration, Avoid nephrotoxins CKD stage 3A - baseline Cr 1-1.2 since 2015 HTN - BP Low for her as she has been running high BP's ,management per primary, recommend holding antihypertensives if BP stay low HyperKalemia- yesterday, no labs ordered this morning, monitor HyperNatremia POA probabaly 2/2 water deficit Cat bite with associated cellulitis. Fracture of the lower extremity- Fibular fracture. Acute hypoxemic hypercapnic respiratory failure. COVID-19 viral pneumonia. Type 2 diabetes. Recent out of hospital arrest. Chronic posttraumatic stress syndrome. COMMENT/RELEVANT DATA Meds Current Medications Medications (Trade) Dose Ordered Sig/Honey Start Time Stop Time Status Last Admin Dose Admin Acetaminophen/ Hydrocodone Bitart (Lortab 5/325) 1 tab PRN Q4HRS PRN 08/02/20 17:00 08/05/20 13:06 DC Albuterol/ Ipratropium (Duoneb) 3 ml RTQID 07/30/20 08:00 07/31/20 11:33 DC 07/31/20 07:23 3 ML Alprazolam (Xanax) 0.5 mg BID 08/05/20 14:00 08/06/20 09:13 0.5 MG Amlodipine Besylate (Norvasc) 5 mg DAILY 08/05/20 12:15 08/06/20 09:14 5 MG Atorvastatin Calcium (Lipitor) 5 mg QHS 07/30/20 21:00 08/05/20 21:14 5 MG Clonidine HCl (Catapres Tts-1) 1 patch WEEKLY 08/03/20 10:00 08/03/20 09:52 1 PATCH Dexamethasone (Decadron) 6 mg DAILYWBKFT 08/02/20 17:00 08/06/20 09:13 6 MG Dextrose (Dextrose 50%-Water Syringe) 12.5 gm PRN Q15MIN PRN 07/30/20 00:30 08/03/20 07:23 12.5 GM Duloxetine HCl (Cymbalta) 120 mg DAILY 07/30/20 09:00 08/06/20 09:13 120 MG Enoxaparin Sodium (Lovenox 40mg Syringe) 40 mg Q12H 08/04/20 09:00 08/06/20 09:12 40 MG Fentanyl Citrate (Fentanyl 2ml Vial) 25 mcg 1X ONCE 08/04/20 06:30 08/04/20 06:31 DC Gabapentin (Neurontin) 300 mg TID 07/30/20 09:00 08/06/20 09:13 300 MG Glyburide (Diabeta) 5 mg DAILY08 07/30/20 08:00 08/05/20 08:21 5 MG Hydralazine HCl (Apresoline Inj) 10 mg PRN Q4HRS PRN 08/04/20 11:15 08/05/20 15:34 10 MG Insulin Human Lispro (HumaLOG) 0-7 UNITS TIDWMEALS 07/30/20 08:00 08/05/20 17:58 4 UNITS Linagliptin (Tradjenta) 5 mg DAILY 07/30/20 09:00 08/05/20 08:21 5 MG Lisinopril (Prinivil) 20 mg DAILY 07/30/20 09:00 08/06/20 09:12 20 MG Lorazepam (Ativan Inj) 1 mg 1X ONCE 08/04/20 04:00 08/04/20 04:01 UNV Metformin HCl (Glucophage) 1,000 mg DAILY08 07/30/20 08:00 08/05/20 08:22 1,000 MG Mupirocin (Bactroban) 1 ileana TID 07/30/20 09:00 08/06/20 09:16 1 ILEANA Nicotine (Nicoderm Cq 21mg) 1 patch DAILY 07/29/20 23:55 08/06/20 09:12 1 PATCH Non-Formulary Medication (Clindamycin Phos/Benzoyl Perox (Clind Ph-Benzoyl Perox 1.2-5%)) 1 ileana DAILY 07/30/20 09:00 08/02/20 07:31 DC Non-Formulary Medication (Non Formulary Item) 1 ea Fr@0900 08/02/20 09:00 08/02/20 07:31 DC Non-Formulary Medication (Tiotropium [place] (Spiriva)) 2 inh PRN 07/29/20 23:30 Cancel Non-Formulary Medication ([farxiga] ) 1 tab DAILY 07/30/20 09:00 08/02/20 07:31 DC Nystatin (Mycostatin) 1 ileana BID 07/30/20 09:00 08/06/20 09:16 1 ILEANA Ondansetron HCl (Zofran) 4 mg PRN Q6HRS PRN 08/04/20 05:30 Oxycodone HCl (Roxicodone) 20 mg QID 08/05/20 14:00 08/06/20 09:13 20 MG Pantoprazole Sodium (Protonix) 40 mg DAILYAC 07/30/20 07:30 08/06/20 09:15 40 MG Sodium Chloride 1,000 ml @ 75 mls/hr [id number] 08/04/20 06:30 08/05/20 22:30 75 MLS/HR Sucralfate (Carafate) 1 gm BIDAC 07/30/20 21:49 08/06/20 09:15 1 GM Triamcinolone Acetonide (Kenalog 0.1%) 1 ileana BID 07/30/20 09:00 08/06/20 09:16 1 ILEANA Vitamin D (Vitamin D3) 1,000 unit DAILY 07/30/20 09:00 08/06/20 09:15 1,000 UNIT Lab Laboratory Tests Test 08/05/20 11:31 08/05/20 13:55 08/05/20 16:32 08/05/20 19:30 Glucose (Fingerstick) 122 mg/dL (70-99) 235 mg/dL (70-99) 121 mg/dL (70-99) White Blood Count 10.9 x10^3/uL (4.0-11.0) Red Blood Count 4.23 x10^6/uL (3.50-5.40) Hemoglobin 13.0 g/dL (12.0-15.5) Hematocrit 38.9 % (36.0-47.0) Mean Corpuscular Volume 92 fL (79-100) Mean Corpuscular Hemoglobin 31 pg (25-35) Mean Corpuscular Hemoglobin Concent 33 g/dL (31-37) Red Cell Distribution Width 14.4 % (11.5-14.5) Platelet Count 357 x10^3/uL (140-400) Neutrophils (%) (Auto) 84 % (31-73) Lymphocytes (%) (Auto) 11 % (24-48) Monocytes (%) (Auto) 4 % (0-9) Eosinophils (%) (Auto) 1 % (0-3) Basophils (%) (Auto) 0 % (0-3) Neutrophils # (Auto) 9.2 x10^3/uL (1.8-7.7) Lymphocytes # (Auto) 1.2 x10^3/uL (1.0-4.8) Monocytes # (Auto) 0.5 x10^3/uL (0.0-1.1) Eosinophils # (Auto) 0.1 x10^3/uL (0.0-0.7) Basophils # (Auto) 0.0 x10^3/uL (0.0-0.2) Test 08/06/20 07:48 08/06/20 08:40 Glucose (Fingerstick) 73 mg/dL (70-99) Sodium Level 140 mmol/L (136-145) Potassium Level 4.6 mmol/L (3.5-5.1) Chloride Level 107 mmol/L (98-107) Carbon Dioxide Level 24 mmol/L (21-32) Anion Gap 9 (6-14) Blood Urea Nitrogen 54 mg/dL (7-20) Creatinine 2.2 mg/dL (0.6-1.0) Estimated GFR (Cockcroft-Gault) 23.1 Glucose Level 75 mg/dL (70-99) Calcium Level 8.8 mg/dL (8.5-10.1) Results All relevant outside records, renal labs, imaging studies, telemetry/EKG's were reviewed. Justicifation of Admission Dx: Justifications for Admission: Justification of Admission Dx: N/A BRADLEY VUONG MD Aug 06, 2020 11:25
[2020-08-06] MEDS: glyBURIDE 5 MG TABLET PO SCH (11:56)
[2020-08-06] MEDS: metFORMIN 500 MG TABLET PO SCH (11:56)
[2020-08-06] MEDS: LINAGLIPTIN 5 MG TABLET PO SCH (11:56)
[2020-08-06 15:00] VITALS: BP 169/74
[2020-08-06] MEDS: IV NORMAL SALINE 1000ML BAG 1,000 ML IV SCH (15:50)
--- NOTE | 2020-08-06 16:57 | RAD ---
EXAM: RENAL/RETROPERITONAL ULTRASOUND. HISTORY: Acute renal injury. COMPARISON: None. FINDINGS: Ultrasound of the kidneys, bladder and retroperitoneum was performed. The right kidney measures 12.0 cm. Cortical thickness and echogenicity are preserved. There is no hyd ronephrosis. The left kidney measures 12.0 cm. Cortical thickness and echogenicity are preserved. There is no hydr onephrosis. The bladder is decompressed and not well seen. The abdominal aorta and inferior vena cava are grossly patent and normal in caliber. IMPRESSION: 1. Unremarkable examination of the kidneys. No hydronephrosis. Electronically signed by: Stefani Narayan MD (08/06/2020 4:54 PM) [id number]
--- NOTE | 2020-08-06 17:45 | NUR ---
Wound Care: Patient seen per wound care for follow up regarding right lower leg cellulitis from recent cat bite and redness under breast from yeast. All wounds are now resolved. Patient applying Nystatin as directed. Intergluteal cleft remains reddened but is not open at this time. Wound care will sign off at this time. Please re consult regarding any changes per wound care. Patient at bedside eating supper at this time and call light in reach.
[2020-08-06 19:00] VITALS: BP 132/66
--- NOTE | 2020-08-06 19:07 | PDOC ---
PROGRESS NOTES Date of Service DATE: 08/06/20 TIME: 18:48 Subjective Subjective Problems overnight: I was asked to "follow-up on leg fracture" for a patient who had an evaluation by another orthopedic provider on 07/29/2020 with clear nonoperative recommendations and is now Covid positive and being treated in the hospital for respiratory and other medical issues. Objective Vital Signs Vital Signs Date Time Temp Pulse Resp B/P (MAP) Pulse Ox O2 Delivery O2 Flow Rate FiO2 08/06/20 17:55 Room Air 08/06/20 15:00 96.5 77 18 169/74 (105) 92 3.0 96.5 Labs Laboratory Tests Test 08/04/20 19:32 08/05/20 07:40 08/05/20 08:00 08/05/20 11:31 Glucose (Fingerstick) 163 mg/dL (70-99) 177 mg/dL (70-99) 122 mg/dL (70-99) O2 Saturation 97 % (92-99) Arterial Blood pH 7.39 (7.35-7.45) Arterial Blood pCO2 at Patient Temp 41 mmHg (35-46) Arterial Blood pO2 at Patient Temp 98 mmHg (75-108) Arterial Blood HCO3 24 mmol/L (21-28) Arterial Blood Base Excess -1 mmol/L (-3-3) FiO2 25% bipap Test 08/05/20 13:55 08/05/20 16:32 08/05/20 19:30 08/06/20 07:48 White Blood Count 10.9 x10^3/uL (4.0-11.0) Red Blood Count 4.23 x10^6/uL (3.50-5.40) Hemoglobin 13.0 g/dL (12.0-15.5) Hematocrit 38.9 % (36.0-47.0) Mean Corpuscular Volume 92 fL (79-100) Mean Corpuscular Hemoglobin 31 pg (25-35) Mean Corpuscular Hemoglobin Concent 33 g/dL (31-37) Red Cell Distribution Width 14.4 % (11.5-14.5) Platelet Count 357 x10^3/uL (140-400) Neutrophils (%) (Auto) 84 % (31-73) Lymphocytes (%) (Auto) 11 % (24-48) Monocytes (%) (Auto) 4 % (0-9) Eosinophils (%) (Auto) 1 % (0-3) Basophils (%) (Auto) 0 % (0-3) Neutrophils # (Auto) 9.2 x10^3/uL (1.8-7.7) Lymphocytes # (Auto) 1.2 x10^3/uL (1.0-4.8) Monocytes # (Auto) 0.5 x10^3/uL (0.0-1.1) Eosinophils # (Auto) 0.1 x10^3/uL (0.0-0.7) Basophils # (Auto) 0.0 x10^3/uL (0.0-0.2) Glucose (Fingerstick) 235 mg/dL (70-99) 121 mg/dL (70-99) 73 mg/dL (70-99) Test 08/06/20 08:40 08/06/20 11:49 08/06/20 17:01 Sodium Level 140 mmol/L (136-145) Potassium Level 4.6 mmol/L (3.5-5.1) Chloride Level 107 mmol/L (98-107) Carbon Dioxide Level 24 mmol/L (21-32) Anion Gap 9 (6-14) Blood Urea Nitrogen 54 mg/dL (7-20) Creatinine 2.2 mg/dL (0.6-1.0) Estimated GFR (Cockcroft-Gault) 23.1 Glucose Level 75 mg/dL (70-99) Calcium Level 8.8 mg/dL (8.5-10.1) Glucose (Fingerstick) 105 mg/dL (70-99) 291 mg/dL (70-99) Laboratory Tests Test 08/05/20 19:30 08/06/20 07:48 08/06/20 08:40 08/06/20 11:49 Glucose (Fingerstick) 121 mg/dL (70-99) 73 mg/dL (70-99) 105 mg/dL (70-99) Sodium Level 140 mmol/L (136-145) Potassium Level 4.6 mmol/L (3.5-5.1) Chloride Level 107 mmol/L (98-107) Carbon Dioxide Level 24 mmol/L (21-32) Anion Gap 9 (6-14) Blood Urea Nitrogen 54 mg/dL (7-20) Creatinine 2.2 mg/dL (0.6-1.0) Estimated GFR (Cockcroft-Gault) 23.1 Glucose Level 75 mg/dL (70-99) Calcium Level 8.8 mg/dL (8.5-10.1) Test 08/06/20 17:01 Glucose (Fingerstick) 291 mg/dL (70-99) Imaging X-rays showed a nondisplaced proximal fibula fracture Assessment Assessment POD# Plan Plan of Care The orthopedic consultation from the previous provider noted the left proximal fibula fracture and no indication for orthopedic surgical intervention at this time continue with knee immobilizer weightbearing as tolerated, recommend outpatient orthopedic follow-up in approximately 2 weeks According to the patient's nurse today there was no change in her mobility status or acute injury. I left a message with Dr. Cano as it appears that there is no change in the acuity of the patient's issue, she is in for unrelated medical problems including Covid positive and received clear treatment recommendations from the previous orthopedic fundraising consultant and has further been in the hospital for nearly a week without contact with the other provider or their group and clear instructions for activity and follow-up were left at that time. I see no reason for a change in that treatment plan and any further clarification can be obtained from Dr. Camarena or his partners if necessary. Justicifation of Admission Dx: Justifications for Admission: Justification of Admission Dx: N/A CHAPARRO MIRANDA MD Aug 06, 2020 19:07
[2020-08-06] MEDS: ATORVASTATIN CALCIUM 10 MG TABLET. PO SCH (21:59)
[2020-08-06 22:37] VITALS: BP 148/68
--- NOTE | 2020-08-07 00:50 | PDOC ---
PROGRESS NOTES Date of Service DATE: 08/06/20 TIME: 11:00 PM Subjective Subjective Patient states she is feeling better. has been working with physical therapy and is able to walk to bathroom with walker slowly. States that someone came by today to show her options for rehab and to ask her which of the options was preferred by her. Apparently she chose [facility] and patient thinks she will be transferring there by end of week. Also requests her toenails trimmed because when she stands her toes curl under and her nails are so long now that they cut into her flesh. She also has a crack in the skin of her right heel. She has been speaking to her [id number]-aau who works for [employer] support agency and they were discussing getting her help in the home once she finally is discharged from rehab facility. Objective Objective Vital Signs Date Time Temp Pulse Resp B/P (MAP) Pulse Ox O2 Delivery O2 Flow Rate FiO2 08/06/20 22:37 97.8 70 19 148/68 (94) 96 Room Air 97.8 08/06/20 15:00 3.0 Intake and Output 08/07/20 06:59 Intake Total 300 ml Balance 300 ml Intake Oral 300 ml Physical Exam Physical Exam Tonight she is alert and oriented, very cooperative. appears comfortable. Has been getting her oxycodone 20 mg as written scheduled 4 times a day. Also has been getting her Xanax BID. Both of these are at lower dose than what she takes at home, but seem to be working for her. She is wearing her nicoderm patch. Sitting up in bed. Color -good. Lungs clear and aeration is improved compared to other days prior to now. Heart is reg. Ext- right lower leg cat bite is healing nicely with no further redness or surrounding edema. Right heel posteriorly and medially has about a 2.6 cm deep crack in calloused skin of the area. It is not erythematous and not tender.to mild palpation. Bilateral toenails are in need of trimming especially the large big toe nail on left foot. Right big toe nail has avulsed earlier during this hospital stay and the nailbed is pink, niot bleeding and not particularly tender to touch. she also has a few of the nails that are thickend and look fungus infected. Concerned because her CR. yesterday and today had increased and stayed at 2.2, up from less than 1.1 on 08/03/2020. Repeat Covid-19 nasal swab was negative on 08/04/2020 after initial positive test on 07/30/2020 Ortho revisited with patient and recommendations in chart. Comment Review of Relevant I have reviewed the following items savita (where applicable) has been applied. Labs Laboratory Tests Test 08/05/20 07:40 08/05/20 08:00 08/05/20 11:31 08/05/20 13:55 Glucose (Fingerstick) 177 mg/dL (70-99) 122 mg/dL (70-99) O2 Saturation 97 % (92-99) Arterial Blood pH 7.39 (7.35-7.45) Arterial Blood pCO2 at Patient Temp 41 mmHg (35-46) Arterial Blood pO2 at Patient Temp 98 mmHg (75-108) Arterial Blood HCO3 24 mmol/L (21-28) Arterial Blood Base Excess -1 mmol/L (-3-3) FiO2 25% bipap White Blood Count 10.9 x10^3/uL (4.0-11.0) Red Blood Count 4.23 x10^6/uL (3.50-5.40) Hemoglobin 13.0 g/dL (12.0-15.5) Hematocrit 38.9 % (36.0-47.0) Mean Corpuscular Volume 92 fL (79-100) Mean Corpuscular Hemoglobin 31 pg (25-35) Mean Corpuscular Hemoglobin Concent 33 g/dL (31-37) Red Cell Distribution Width 14.4 % (11.5-14.5) Platelet Count 357 x10^3/uL (140-400) Neutrophils (%) (Auto) 84 % (31-73) Lymphocytes (%) (Auto) 11 % (24-48) Monocytes (%) (Auto) 4 % (0-9) Eosinophils (%) (Auto) 1 % (0-3) Basophils (%) (Auto) 0 % (0-3) Neutrophils # (Auto) 9.2 x10^3/uL (1.8-7.7) Lymphocytes # (Auto) 1.2 x10^3/uL (1.0-4.8) Monocytes # (Auto) 0.5 x10^3/uL (0.0-1.1) Eosinophils # (Auto) 0.1 x10^3/uL (0.0-0.7) Basophils # (Auto) 0.0 x10^3/uL (0.0-0.2) Test 08/05/20 16:32 08/05/20 19:30 08/06/20 07:48 08/06/20 08:40 Glucose (Fingerstick) 235 mg/dL (70-99) 121 mg/dL (70-99) 73 mg/dL (70-99) Sodium Level 140 mmol/L (136-145) Potassium Level 4.6 mmol/L (3.5-5.1) Chloride Level 107 mmol/L (98-107) Carbon Dioxide Level 24 mmol/L (21-32) Anion Gap 9 (6-14) Blood Urea Nitrogen 54 mg/dL (7-20) Creatinine 2.2 mg/dL (0.6-1.0) Estimated GFR (Cockcroft-Gault) 23.1 Glucose Level 75 mg/dL (70-99) Calcium Level 8.8 mg/dL (8.5-10.1) Test 08/06/20 11:49 08/06/20 17:01 08/06/20 19:25 Glucose (Fingerstick) 105 mg/dL (70-99) 291 mg/dL (70-99) 241 mg/dL (70-99) Laboratory Tests Test 08/06/20 07:48 08/06/20 08:40 08/06/20 11:49 08/06/20 17:01 Glucose (Fingerstick) 73 mg/dL (70-99) 105 mg/dL (70-99) 291 mg/dL (70-99) Sodium Level 140 mmol/L (136-145) Potassium Level 4.6 mmol/L (3.5-5.1) Chloride Level 107 mmol/L (98-107) Carbon Dioxide Level 24 mmol/L (21-32) Anion Gap 9 (6-14) Blood Urea Nitrogen 54 mg/dL (7-20) Creatinine 2.2 mg/dL (0.6-1.0) Estimated GFR (Cockcroft-Gault) 23.1 Glucose Level 75 mg/dL (70-99) Calcium Level 8.8 mg/dL (8.5-10.1) Test 08/06/20 19:25 Glucose (Fingerstick) 241 mg/dL (70-99) Medications Current Medications Nicotine (Nicoderm Cq 21mg) 1 patch DAILY TD Last administered on 08/06/20 09:12; Start 07/29/20 at 23:55 Alprazolam (Xanax) 1 mg PRN Q8HRS PRN PO ANXIETY / AGITATION Last administered on 07/31/20 19:20; Start 07/29/20 at 23:15; Stop 08/02/20 at 13:36; Status DC Oxycodone HCl (Roxicodone) 30 mg PRN Q4HRS PRN PO PAIN Last administered on 08/01/20 06:35; Start 07/29/20 at 23:15; Stop 08/02/20 at 13:36; Status DC Glyburide (Diabeta) 5 mg DAILY08 PO Last administered on 08/06/20 11:56; Start 07/30/20 at 08:00 Mupirocin (Bactroban) 1 jing TID TP Last administered on 08/06/20 21:00; Start 07/30/20 at 09:00 Linagliptin (Tradjenta) 5 mg DAILY PO Last administered on 08/06/20 11:56; Start 07/30/20 at 09:00 Vitamin D (Vitamin D3) 1,000 unit DAILY PO Last administered on 08/06/20 09:15; Start 07/30/20 at 09:00 Non-Formulary Medication (Clindamycin Phos/Benzoyl Perox (Clind Ph-Benzoyl Perox 1.2-5%)) 1 jing DAILY TP ; Start 07/30/20 at 09:00; Stop 08/02/20 at 07:31; Status DC Duloxetine HCl (Cymbalta) 120 mg DAILY PO Last administered on 08/06/20 09:13; Start 07/30/20 at 09:00 Albuterol/ Ipratropium (Duoneb) 3 ml RTQID NEB Last administered on 07/31/20 07:23; Start 07/30/20 at 08:00; Stop 07/31/20 at 11:33; Status DC Atorvastatin Calcium (Lipitor) 5 mg QHS PO Last administered on 6/8/21at 21:59; Start 07/30/20 at 21:00 Nystatin (Mycostatin) 1 jing BID TP Last administered on 08/06/20at 21:00; Start 07/30/20 at 09:00 Pantoprazole Sodium (Protonix) 40 mg DAILYAC PO Last administered on 08/06/20at 09:15; Start 07/30/20 at 07:30 Non-Formulary Medication (Tiotropium [place] (Spiriva)) 2 inh PRN IH ; Start 07/29/20 at 23:30; Status Cancel Non-Formulary Medication ([farxiga] ) 1 tab DAILY PO ; Start 07/30/20 at 09:00; Stop 08/02/20 at 07:31; Status DC Lisinopril (Prinivil) 20 mg DAILY PO Last administered on 08/06/20at 09:12; Start 07/30/20 at 09:00 Gabapentin (Neurontin) 300 mg TID PO Last administered on 08/06/20at 21:58; Sta rt 07/30/20 at 09:00 Metformin HCl (Glucophage) 1,000 mg DAILY08 PO Last administered on 08/06/20at 11:56; Start 07/30/20 at 08:00 Triamcinolone Acetonide (Kenalog 0.1%) 1 jing BID TP Last administered on 08/06/20at 21:00; Start 07/30/20 at 09:00 Insulin Human Lispro (HumaLOG) 0-7 UNITS TIDWMEALS SQ Last administered on 08/06/20at 17:57; Start 07/30/20 at 08:00 Dextrose (Dextrose 50%-Water Syringe) 12.5 gm PRN Q15MIN PRN IV SEE COMMENTS Last administered on 08/03/20at 07:23; Start 07/30/20 at 00:30 Non-Formulary Medication (Non Formulary Item) 1 ea Fr@0900 SQ ; Start 08/02/20 at 09:00; Stop 08/02/20 at 07:31; Status DC Sucralfate (Carafate) 1 gm BIDAC PO Last administered on 08/06/20at 17:56; Start 07/30/20 at 21:49 Alprazolam (Xanax) 0.5 mg PRN Q8HRS PRN PO ANXIETY / AGITATION; Start 08/02/20 at 13:45; Stop 08/02/20 at 14:34; Status DC Oxycodone HCl (Roxicodone) 20 mg PRN Q4HRS PRN PO PAIN; Start 08/02/20 at 13:45; Stop 08/02/20 at 16:50; Status DC Dexamethasone (Decadron) 6 mg DAILYWBKFT PO Last administered on 08/06/20at 09:13; Start 08/02/20 at 17:00 Acetaminophen/ Hydrocodone Bitart (Lortab 5/325) 1 tab PRN Q4HRS PRN PO PAIN; Start 08/02/20 at 17:00; Stop 08/05/20 at 13:06; Status DC Clonidine HCl (Catapres Tts-1) 1 patch WEEKLY TD Last administered on 08/03/20at 09:52; Start 08/03/20 at 10:00 Alprazolam (Xanax) 1 mg 1X ONCE PO ; Start 08/04/20 at 03:00; Stop 08/04/20 at 03:01; Status DC Alprazolam (Xanax) 0.5 mg 1X ONCE PO ; Start 08/04/20 at 03:30; Stop 08/04/20 at 03:31; Status DC Lorazepam (Ativan Inj) 0.5 mg 1X ONCE IVP ; Start 08/04/20 at 03:30; Stop 08/04/20 at 03:31; Status DC Lorazepam (Ativan Inj) 1 mg 1X ONCE IVP Last administered on 08/04/20at 04:00; Start 08/04/20 at 04:30; Stop 08/04/20 at 04:31; Status DC Lorazepam (Ativan Inj) 1 mg 1X ONCE IVP ; Start 08/04/20 at 04:00; Stop 08/04/20 at 04:01; Status UNV Oxycodone HCl (Roxicodone) 20 mg PRN Q6HRS PRN PO SEVERE PAIN 7-10; Start 08/04/20 at 06:15; Stop 08/05/20 at 13:06; Status DC Alprazolam (Xanax) 0.5 mg PRN BID PRN PO ANXIETY / AGITATION; Start 08/04/20 at 05:30; Stop 08/05/20 at 13:06; Status DC Fentanyl Citrate (Fentanyl 2ml Vial) 25 mcg 1X ONCE IVP ; Start 08/04/20 at 06:30; Stop 08/04/20 at 06:31; Status DC Ondansetron HCl (Zofran) 4 mg PRN Q6HRS PRN IVP NAUSEA/VOMITING 1ST CHOICE; Start 08/04/20 at 05:30 Sodium Chloride 1,000 ml @ 75 mls/hr [id number] IV Last administered on 08/06/20at 15:50; Start 08/04/20 at 06:30 Enoxaparin Sodium (Lovenox 40mg Syringe) 40 mg Q12H SQ Last administered on 08/06/20 21:58; Start 08/04/20 at 09:00 Hydralazine HCl (Apresoline Inj) 10 mg PRN Q4HRS PRN IVP ELEVATED BP, SEE COMMENTS Last administered on 08/05/20at 15:34; Start 08/04/20 at 11:15 Amlodipine Besylate (Norvasc) 5 mg DAILY PO Last administered on 08/06/20at 09:14; Start 08/05/20 at 12:15 Alprazolam (Xanax) 0.5 mg BID PO Last administered on 08/06/20 21:58; Start 08/05/20 at 14:00 Oxycodone HCl (Roxicodone) 20 mg QID PO Last administered on 08/06/20 21:58; Start 08/05/20 at 14:00 Active Scripts Active Reported Trulicity (Dulaglutide) 0.75 Mg/0.5 Ml Pen.injctr 0.75 Mg SQ WEEKLY Vitamin D3 (Cholecalciferol (Vitamin D3)) 125 Mcg Tablet 125 Mcg PO DAILY Omeprazole 40 Mg Capsule. 1 Cap PO DAILY Nystatin-Triamcinolone Cream (Nystatin/Triamcin) 15 Gm Cream..g. 1 Jing TP BID Mupirocin Ointment (Mupirocin) 22 Gm Oint...g. 1 Jing TP TID NICODERM CQ 21mg (Nicotine) 1 Each Patch.td24 1 Patch TP DAILY Clind Ph-Benzoyl Perox 1.2-5% (Clindamycin Phos/Benzoyl Perox) 45 Gm Gel.er..g. 1 Jing TP DAILY 30 Days Cymbalta (Duloxetine Hcl) 60 Mg Capsule.dr 2 Cap PO DAILY Alprazolam 1 Mg Tablet 1 Tab PO TID [farxiga] 5 Mg 1 Tab PO DAILY Oxycodone Hcl Immed.release (Oxycodone Hcl) 30 Mg Tablet 1 Tab PO Q4HRS Spiriva (Tiotropium [place]) 18 Mcg Cap.w.dev 2 Inh IH PRN Lovastatin 20 Mg Tablet 20 Mg PO HS [place] 12.5-1,000 Mg Tablet (Alogliptin Jose/Metformin Hcl) 1 Each Tablet 1 Each PO DAILY Combivent Respimat Inhal (Ipratropium/Albuterol Sulfate) 4 Gm Aer.w.adap 2 Inh IH QID Vitals/I & O Vital Sign - Last 24 Hours 08/06/20 08/06/20 08/06/20 08/06/20 02:46 07:00 08:00 08:12 Temp 97.7 97.9 97.7 97.9 Pulse 72 62 Resp 18 18 B/P (MAP) 113/55 (74) 115/56 (75) Pulse Ox 98 100 99 O2 Delivery Nasal Cannula Nasal Cannula Nasal Cannula BiPAP/CPAP O2 Flow Rate 3.0 3.0 3.0 08/06/20 08/06/20 08/06/20 08/06/20 09:12 09:13 09:14 10:00 Pulse 62 62 B/P (MAP) 115/56 115/56 O2 Delivery Nasal Cannula Nasal Cannula O2 Flow Rate 3.0 3.0 08/06/20 08/06/20 08/06/20 08/06/20 11:00 11:49 14:21 15:00 Temp 97.6 97.6 Pulse 68 Resp 18 B/P (MAP) 115/58 (77) Pulse Ox 99 99 O2 Delivery Nasal Cannula Nasal Cannula Room Air Room Air O2 Flow Rate 3.0 2.0 08/06/20 08/06/20 08/06/20 08/06/20 15:00 17:55 19:00 19:18 Temp 96.5 97.8 96.5 97.8 Pulse 77 72 Resp 18 19 B/P (MAP) 169/74 (105) 132/66 (88) Pulse Ox 92 96 O2 Delivery Nasal Cannula Room Air Room Air Room Air O2 Flow Rate 3.0 08/06/20 08/06/20 21:58 22:37 Temp 97.8 97.8 Pulse 70 Resp 19 B/P (MAP) 148/68 (94) Pulse Ox 98 96 O2 Delivery Nasal Cannula Room Air Intake and Output 08/06/20 08/06/20 08/07/20 14:59 22:59 06:59 Intake Total 300 ml Balance 300 ml Justifications for Admission Other Justification TERRY ALTMAN MD Aug 07, 2020 00:50
[2020-08-07] MEDS: IV NORMAL SALINE 1000ML BAG 1,000 ML IV SCH ×2 (01:10→15:54)
[2020-08-07 07:00] VITALS: BP 141/63
[2020-08-07] MEDS: INSULIN LISPRO 300 UNITS/3 ML VIAL. SQ SCH ×3 (08:00→17:00)
[2020-08-07] MEDS: TRIAMCINOLONE ACETONIDE 0.1% TOPICAL CREAM 15GM TUBE. TP SCH ×2 (09:00→21:00)
[2020-08-07] MEDS: MUPIROCIN 2 % NASAL OINTMENT 22GM TUBE. TP SCH ×3 (09:00→21:00)
[2020-08-07] MEDS: NYSTATIN 100,000 UNIT/GM TOPICAL CREAM 15GM TUBE. TP SCH ×2 (09:00→21:00)
[2020-08-07] MEDS: SUCRALFATE 1 GM TABLET. PO SCH ×2 (09:03→16:33)
[2020-08-07] MEDS: PANTOPRAZOLE 40 MG TABLET.DR. PO SCH (09:03)
[2020-08-07 09:12] LABS: ALBUMIN/GLOBULIN RATIO 0.7 (1.0-1.7); CREATININE 2.4 mg/dL (0.6-1.0); GFR 20.9; TOTAL BILIRUBIN 0.2 mg/dL (0.2-1.0); TOTAL PROTEIN 7.6 g/dL (6.4-8.2)
[2020-08-07] MEDS: ALPRAZolam 0.5 MG TABLET PO SCH ×2 (09:27→21:35)
[2020-08-07] MEDS: oxyCODONE IR 5 MG TABLET PO SCH ×3 (09:28→17:00)
[2020-08-07] MEDS: metFORMIN 500 MG TABLET PO SCH (09:28)
[2020-08-07] MEDS: CHOLECALCIFEROL (VITAMIN D3) 1,000 UNIT TABLET PO SCH (09:28)
[2020-08-07] MEDS: GABAPENTIN 300 MG CAPSULE. PO SCH ×3 (09:28→21:36)
[2020-08-07] MEDS: DULoxetine HCL 30 MG CAPSULE.DR PO SCH (09:28)
[2020-08-07] MEDS: DEXAMETHASONE 4 MG TABLET PO SCH (09:28)
[2020-08-07] MEDS: LINAGLIPTIN 5 MG TABLET PO SCH (09:28)
[2020-08-07] MEDS: LISINOPRIL 20 MG TABLET PO SCH (09:29)
[2020-08-07] MEDS: glyBURIDE 5 MG TABLET PO SCH (09:30)
[2020-08-07] MEDS: ENOXAPARIN 40 MG/0.4 ML SYRINGE. SQ SCH ×2 (09:31→21:35)
[2020-08-07] MEDS: NICOTINE 21MG PATCH. TD SCH (09:31)
--- NOTE | 2020-08-07 09:54 | PDOC ---
PULMONARY PROGRESS NOTES DATE: 08/07/20 TIME: 09:53 Subjective Pt. on room air today feels better today no increased cough or SOB no overnight events Vitals Vital Signs Date Time Temp Pulse Resp B/P (MAP) Pulse Ox O2 Delivery O2 Flow Rate FiO2 08/07/20 09:30 69 141/63 08/07/20 09:28 Room Air 08/07/20 07:00 97.5 20 99 97.5 08/06/20 15:00 3.0 ROS: No Nausea, No Chest Pain, No Abdominal Pain, No Increase Cough General: Alert Lungs: Clear Cardiovascular: S1, S2 Abdomen: Soft, Non-tender, Other (obese) Neuro Exam: Alert Skin: Warm Labs Laboratory Tests Test 08/05/20 11:31 08/05/20 13:55 08/05/20 16:32 08/05/20 19:30 Glucose (Fingerstick) 122 mg/dL (70-99) 235 mg/dL (70-99) 121 mg/dL (70-99) White Blood Count 10.9 x10^3/uL (4.0-11.0) Red Blood Count 4.23 x10^6/uL (3.50-5.40) Hemoglobin 13.0 g/dL (12.0-15.5) Hematocrit 38.9 % (36.0-47.0) Mean Corpuscular Volume 92 fL (79-100) Mean Corpuscular Hemoglobin 31 pg (25-35) Mean Corpuscular Hemoglobin Concent 33 g/dL (31-37) Red Cell Distribution Width 14.4 % (11.5-14.5) Platelet Count 357 x10^3/uL (140-400) Neutrophils (%) (Auto) 84 % (31-73) Lymphocytes (%) (Auto) 11 % (24-48) Monocytes (%) (Auto) 4 % (0-9) Eosinophils (%) (Auto) 1 % (0-3) Basophils (%) (Auto) 0 % (0-3) Neutrophils # (Auto) 9.2 x10^3/uL (1.8-7.7) Lymphocytes # (Auto) 1.2 x10^3/uL (1.0-4.8) Monocytes # (Auto) 0.5 x10^3/uL (0.0-1.1) Eosinophils # (Auto) 0.1 x10^3/uL (0.0-0.7) Basophils # (Auto) 0.0 x10^3/uL (0.0-0.2) Test 08/06/20 07:48 08/06/20 08:40 08/06/20 11:49 08/06/20 17:01 Glucose (Fingerstick) 73 mg/dL (70-99) 105 mg/dL (70-99) 291 mg/dL (70-99) Sodium Level 140 mmol/L (136-145) Potassium Level 4.6 mmol/L (3.5-5.1) Chloride Level 107 mmol/L (98-107) Carbon Dioxide Level 24 mmol/L (21-32) Anion Gap 9 (6-14) Blood Urea Nitrogen 54 mg/dL (7-20) Creatinine 2.2 mg/dL (0.6-1.0) Estimated GFR (Cockcroft-Gault) 23.1 Glucose Level 75 mg/dL (70-99) Calcium Level 8.8 mg/dL (8.5-10.1) Test 08/06/20 19:25 08/07/20 03:45 08/07/20 07:43 Glucose (Fingerstick) 241 mg/dL (70-99) 92 mg/dL (70-99) Sodium Level 144 mmol/L (136-145) Potassium Level 6.0 mmol/L (3.5-5.1) Chloride Level 105 mmol/L (98-107) Carbon Dioxide Level 25 mmol/L (21-32) Anion Gap 14 (6-14) Blood Urea Nitrogen 65 mg/dL (7-20) Creatinine 2.4 mg/dL (0.6-1.0) Estimated GFR (Cockcroft-Gault) 20.9 BUN/Creatinine Ratio 27 (6-20) Glucose Level 75 mg/dL (70-99) Calcium Level 9.0 mg/dL (8.5-10.1) Total Bilirubin 0.2 mg/dL (0.2-1.0) Aspartate Amino Transf (AST/SGOT) 21 U/L (15-37) Alanine Aminotransferase (ALT/SGPT) 22 U/L (14-59) Alkaline Phosphatase 63 U/L (46-116) Total Protein 7.6 g/dL (6.4-8.2) Albumin 3.0 g/dL (3.4-5.0) Albumin/Globulin Ratio 0.7 (1.0-1.7) Laboratory Tests Test 08/06/20 11:49 08/06/20 17:01 08/06/20 19:25 08/07/20 03:45 Glucose (Fingerstick) 105 mg/dL (70-99) 291 mg/dL (70-99) 241 mg/dL (70-99) Sodium Level 144 mmol/L (136-145) Potassium Level 6.0 mmol/L (3.5-5.1) Chloride Level 105 mmol/L (98-107) Carbon Dioxide Level 25 mmol/L (21-32) Anion Gap 14 (6-14) Blood Urea Nitrogen 65 mg/dL (7-20) Creatinine 2.4 mg/dL (0.6-1.0) Estimated GFR (Cockcroft-Gault) 20.9 BUN/Creatinine Ratio 27 (6-20) Glucose Level 75 mg/dL (70-99) Calcium Level 9.0 mg/dL (8.5-10.1) Total Bilirubin 0.2 mg/dL (0.2-1.0) Aspartate Amino Transf (AST/SGOT) 21 U/L (15-37) Alanine Aminotransferase (ALT/SGPT) 22 U/L (14-59) Alkaline Phosphatase 63 U/L (46-116) Total Protein 7.6 g/dL (6.4-8.2) Albumin 3.0 g/dL (3.4-5.0) Albumin/Globulin Ratio 0.7 (1.0-1.7) Test 08/07/20 07:43 Glucose (Fingerstick) 92 mg/dL (70-99) Medications Active Scripts Medications Dose Route/Sig Max Daily Dose Days Date Category Trulicity (Dulaglutide) 0.75 Mg/0.5 Ml Pen.injctr 0.75 Mg SQ WEEKLY 07/29/20 Reported Vitamin D3 (Cholecalciferol (Vitamin D3)) 125 Mcg Tablet 125 Mcg PO DAILY 07/29/20 Reported Omeprazole 40 Mg Capsule.dr 1 Cap PO DAILY 07/29/20 Reported Nystatin-Triamcinolone Cream (Nystatin/Triamcin) 15 Gm Cream..g. 1 Jing TP BID 07/29/20 Reported Mupirocin Ointment (Mupirocin) 22 Gm Oint...g. 1 Jing TP TID 07/29/20 Reported NICODERM CQ 21mg (Nicotine) 1 Each Patch.td24 1 Patch TP DAILY 07/29/20 Reported Clind Ph-Benzoyl Perox 1.2-5% (Clindamycin Phos/Benzoyl Perox) 45 Gm Gel.er..g. 1 Jing TP DAILY 30 07/29/20 Reported Cymbalta (Duloxetine Hcl) 60 Mg Capsule.dr 2 Cap PO DAILY 07/29/20 Reported Alprazolam 1 Mg Tablet 1 Tab PO TID 07/29/20 Reported [farxiga] 5 Mg 1 Tab PO DAILY 10/05/17 Reported Oxycodone Hcl Immed.release (Oxycodone Hcl) 30 Mg Tablet 1 Tab PO Q4HRS 10/05/17 Reported Spiriva (Tiotropium [place]) 18 Mcg Cap.w.dev 2 Inh IH PRN 10/05/17 Reported Lovastatin 20 Mg Tablet 20 Mg PO HS 10/05/17 Reported Kazano 12.5-1,000 Mg Tablet (Alogliptin Jose/Metformin Hcl) 1 Each Tablet 1 Each PO DAILY 11/11/15 Reported Combivent Respimat Inhal (Ipratropium/Albuterol Sulfate) 4 Gm Aer.w.adap 2 Inh IH QID 03/13/15 Reported Impression . IMPRESSION: 1. Acute hypoxemic hypercapnic respiratory failure--improving 2. COVID-19 viral pneumonia. 3. Type 2 diabetes w/ hyperglycemia on steroids 4. Fibular fracture. 5. Recent out of hospital arrest. 6. Chronic posttraumatic stress syndrome. 7. Anxiety disorder. 8. History of bipolar disorder. 9. Morbid obesity. 10. Tobacco dependent. 11. Acute exacerbation of chronic obstructive pulmonary disease. 12. Coronary artery disease. 13. Hypertension. 14. Hyperlipidemia. 15. Combination of respiratory and metabolic acidosis--resolved 16.FEROZ on CKD worsening Plan . PLAN: Continue to clinically improve Continue supplemental oxygen to keep sats above 90% 6 min walk before discharge Pt. will need out patient sleep study Continue steroids, will need full 10 day course BIPAP at HS and PRN Avoid sedative medications Follow nephrology recs -- worsening renal function, avoid nephrotoxic meds, IVF DVT/GI PPX D/W night shift supervisor for DC planning -- KAIN LEE MD Aug 07, 2020 09:53
--- NOTE | 2020-08-07 10:46 | PDOC ---
DATE OF SERVICE DATE: 08/07/20 TIME: 10:39 SUBJECTIVE ROS Currently no acute complaints by patient . She states her urine is occasionaly mildly cloudy m, No dysuria or urgency No concerns voiced by nursing . OBJECTIVE Vital Signs Vital Signs Date Time Temp Pulse Resp B/P (MAP) Pulse Ox O2 Delivery O2 Flow Rate FiO2 08/07/20 09:30 69 141/63 08/07/20 09:28 Room Air 08/07/20 07:00 97.5 20 99 97.5 08/06/20 15:00 3.0 I & 0 Intake and Output 08/07/20 07:00 Intake Total 1380 ml Balance 1380 ml Intake Oral 1380 ml PHYSICAL EXAM Physical Exam Gen NAD, Morbidly Obese HEEN OM moist, No icterus, On NC O2 Lungs No acc muscle use Neuro axoX3 CV S1S2 No Patel \ DIAGNOSIS/ASSESSMENT Assessment & Plan FEROZ -Vasomotor/ did resolve ; Worsening again ? ATN/ AIN, Ordered UA yesterday- pending , Renal US unremarkable ,Supportive care, maintain hydration, strict I/O Avoid nephrotoxins HyperKalemia (if not hemolyzed) treat with Ca Gluconate, Insulin etc and Kayexalate, gonzalo RN. . DC Lisinopril CKD stage 3A - baseline Cr 1-1.2 since 2016 HTN - BP Low for her as she has been running high BP's ,management per primary, recommend holding antihypertensives if BP stay low HyperNatremia POA probabaly 2/2 water deficit , resolved Cat bite with associated cellulitis. Fracture of the lower extremity- Fibular fracture. Acute hypoxemic hypercapnic respiratory failure. COVID-19 viral pneumonia. Type 2 diabetes Uncontrolled. Recommend DC Metformin due to FEROZ . Defer to Primary Recent out of hospital arrest. Chronic posttraumatic stress syndrome. COMMENT/RELEVANT DATA Meds Current Medications Medications (Trade) Dose Ordered Sig/Honey Start Time Stop Time Status Last Admin Dose Admin Acetaminophen/ Hydrocodone Bitart (Lortab 5/325) 1 tab PRN Q4HRS PRN 08/02/20 17:00 08/05/20 13:06 DC Albuterol/ Ipratropium (Duoneb) 3 ml RTQID 07/30/20 08:00 07/31/20 11:33 DC 07/31/20 07:23 3 ML Alprazolam (Xanax) 0.5 mg BID 08/05/20 14:00 08/07/20 09:27 0.5 MG Amlodipine Besylate (Norvasc) 5 mg DAILY 08/05/20 12:15 08/07/20 09:30 5 MG Atorvastatin Calcium (Lipitor) 5 mg QHS 07/30/20 21:00 08/06/20 21:59 5 MG Clonidine HCl (Catapres Tts-1) 1 patch WEEKLY 08/03/20 10:00 08/03/20 09:52 1 PATCH Dexamethasone (Decadron) 6 mg DAILYWBKFT 08/02/20 17:00 08/07/20 09:28 6 MG Dextrose (Dextrose 50%-Water Syringe) 12.5 gm PRN Q15MIN PRN 07/30/20 00:30 08/03/20 07:23 12.5 GM Duloxetine HCl (Cymbalta) 120 mg DAILY 07/30/20 09:00 08/07/20 09:28 120 MG Enoxaparin Sodium (Lovenox 40mg Syringe) 40 mg Q12H 08/04/20 09:00 08/07/20 09:31 40 MG Fentanyl Citrate (Fentanyl 2ml Vial) 25 mcg 1X ONCE 08/04/20 06:30 08/04/20 06:31 DC Gabapentin (Neurontin) 300 mg TID 07/30/20 09:00 08/07/20 09:28 300 MG Glyburide (Diabeta) 5 mg DAILY08 07/30/20 08:00 08/07/20 09:30 5 MG Hydralazine HCl (Apresoline Inj) 10 mg PRN Q4HRS PRN 08/04/20 11:15 08/05/20 15:34 10 MG Insulin Human Lispro (HumaLOG) 0-7 UNITS TIDWMEALS 07/30/20 08:00 08/06/20 17:57 6 UNITS Linagliptin (Tradjenta) 5 mg DAILY 07/30/20 09:00 08/07/20 09:28 5 MG Lisinopril (Prinivil) 20 mg DAILY 07/30/20 09:00 08/07/20 09:29 20 MG Lorazepam (Ativan Inj) 1 mg 1X ONCE 08/04/20 04:00 08/04/20 04:01 UNV Metformin HCl (Glucophage) 1,000 mg DAILY08 07/30/20 08:00 08/07/20 09:28 1,000 MG Mupirocin (Bactroban) 1 ileana TID 07/30/20 09:00 08/07/20 09:00 1 ILEANA Nicotine (Nicoderm Cq 21mg) 1 patch DAILY 07/29/20 23:55 08/07/20 09:31 1 PATCH Non-Formulary Medication (Clindamycin Phos/Benzoyl Perox (Clind Ph-Benzoyl Perox 1.2-5%)) 1 ileana DAILY 07/30/20 09:00 08/02/20 07:31 DC Non-Formulary Medication (Non Formulary Item) 1 ea Fr@0900 08/02/20 09:00 08/02/20 07:31 DC Non-Formulary Medication (Tiotropium [place] (Spiriva)) 2 inh PRN 07/29/20 23:30 Cancel Non-Formulary Medication ([farxiga] ) 1 tab DAILY 07/30/20 09:00 08/02/20 07:31 DC Nystatin (Mycostatin) 1 ileana BID 07/30/20 09:00 08/07/20 09:00 1 ILEANA Ondansetron HCl (Zofran) 4 mg PRN Q6HRS PRN 08/04/20 05:30 Oxycodone HCl (Roxicodone) 20 mg QID 08/05/20 14:00 08/07/20 09:28 20 MG Pantoprazole Sodium (Protonix) 40 mg DAILYAC 07/30/20 07:30 08/07/20 09:03 40 MG Sodium Chloride 1,000 ml @ 75 mls/hr [id number] 08/04/20 06:30 08/07/20 01:10 75 MLS/HR Sucralfate (Carafate) 1 gm BIDAC 07/30/20 21:49 08/07/20 09:03 1 GM Triamcinolone Acetonide (Kenalog 0.1%) 1 ileana BID 07/30/20 09:00 08/07/20 09:00 1 ILEANA Vitamin D (Vitamin D3) 1,000 unit DAILY 07/30/20 09:00 08/07/20 09:28 1,000 UNIT Lab Laboratory Tests Test 08/06/20 11:49 08/06/20 17:01 08/06/20 19:25 08/07/20 03:45 Glucose (Fingerstick) 105 mg/dL (70-99) 291 mg/dL (70-99) 241 mg/dL (70-99) Sodium Level 144 mmol/L (136-145) Potassium Level 6.0 mmol/L (3.5-5.1) Chloride Level 105 mmol/L (98-107) Carbon Dioxide Level 25 mmol/L (21-32) Anion Gap 14 (6-14) Blood Urea Nitrogen 65 mg/dL (7-20) Creatinine 2.4 mg/dL (0.6-1.0) Estimated GFR (Cockcroft-Gault) 20.9 BUN/Creatinine Ratio 27 (6-20) Glucose Level 75 mg/dL (70-99) Calcium Level 9.0 mg/dL (8.5-10.1) Total Bilirubin 0.2 mg/dL (0.2-1.0) Aspartate Amino Transf (AST/SGOT) 21 U/L (15-37) Alanine Aminotransferase (ALT/SGPT) 22 U/L (14-59) Alkaline Phosphatase 63 U/L (46-116) Total Protein 7.6 g/dL (6.4-8.2) Albumin 3.0 g/dL (3.4-5.0) Albumin/Globulin Ratio 0.7 (1.0-1.7) Test 08/07/20 07:43 Glucose (Fingerstick) 92 mg/dL (70-99) Results All relevant outside records, renal labs, imaging studies, telemetry/EKG's were reviewed. Justicifation of Admission Dx: Justifications for Admission: Justification of Admission Dx: N/A BRADLEY VUONG MD Aug 07, 2020 10:46
[2020-08-07 11:00] VITALS: BP 154/103
[2020-08-07] MEDS ORDERED: SODIUM POLYSTYRENE SULFON/SORB 15 GM/60 ML ORAL.SUSP. PO ONE (11:15)
[2020-08-07] MEDS ORDERED: CALCIUM GLUCONATE 1,000 MG/10 ML VIAL. IVP ONE (11:15)
[2020-08-07] MEDS ORDERED: DEXTROSE 50% 25 GM / 50ML DISP.SYRIN. IV ONE (11:45)
[2020-08-07] MEDS ORDERED: SODIUM BICARB ADULT 8.4% 50 MEQ/50 ML DISP.SYRIN. IV ONE (11:45)
[2020-08-07] MEDS ORDERED: INSULIN REGULAR 100 UNIT/ML 3ML VIAL. IV ONE (11:45)
[2020-08-07 15:00] VITALS: BP 149/78
[2020-08-07 17:13] LABS: BILIRUBIN,URINE NEGATIVE (NEG); CLARITY,URINE CLOUDY; COLOR,URINE YELLOW; NITRITE,URINE NEGATIVE (NEG); PROTEIN,URINE 100 mg/dL (NEG-TRACE); UROBILINOGEN,URINE 0.2 mg/dL (0.2 mg/dL)
[2020-08-07 17:33] LABS: BACTERIA,URINE MODERATE /HPF (0-FEW)
[2020-08-07 19:00] VITALS: BP 135/64
[2020-08-07] MEDS ORDERED: BIMA2.5D EACHEYE (19:22)
[2020-08-07] MEDS: ATORVASTATIN CALCIUM 10 MG TABLET. PO SCH (21:36)
[2020-08-07 23:44] VITALS: BP 147/67
[2020-08-08] MEDS ORDERED: NICOTINE 7MG PATCH. TD SCH
[2020-08-08] MEDS: oxyCODONE IR 5 MG TABLET PO SCH ×3 (00:05→12:59)
--- NOTE | 2020-08-08 01:22 | PDOC ---
PROGRESS NOTES Date of Service DATE: 08/08/20 TIME: 01:11 Subjective Subjective Is feeling much better today. States she is not drinking as much as earlier in week. Notes that she is having burning of her tongue and throat especially when she eats. Looking forward to going to rehab. Does have her nicoderm patch on but all day long she has been thinking of nothing but cigarettes. May have been smoking more than a ppd before hospitalization. Objective Objective Vital Signs Date Time Temp Pulse Resp B/P (MAP) Pulse Ox O2 Delivery O2 Flow Rate FiO2 08/08/20 00:35 97 Room Air 08/08/20 00:05 3.0 08/07/20 23:44 98.8 80 20 147/67 (93) 98.8 Intake and Output 08/08/20 07:00 # Voids 4 Physical Exam Physical Exam Cat bite on right lower leg anteriorly continues to look good. Color good. She has mild erythema of her tongue and a few white patches on the mucosa of mouth. Neck is supple. Rest of exam is unchanged from last nights exam. Her BP has been trending up today. she is on the catapres patch, amlodipine 5mg po daily, . Lisinopril has been discontinued due to worsening renal status. * Likewise I have discontinued glyburide and metformin for same reason. Estimated GFR is now 20.9 with BUN 65, Cr 2.4 compared to improved values on 08/04/20 with BUN 37 Cr 1.1 and Est. GFR of 51.4. Gabapentin dose has been reduced from 300 mg to 100 mg TID> . Psych/Mental Status: Mental status NL, Mood NL Diagnosis DIAGNOSIS Chronic Kidney disease worsening . Oral thrush new problem Covid 19 positive with repeat test negative- Today is day 9 after positive Covid test, Diabetes Type 2, fair control. Hypertension striving for control. Proximal fibular fracture. Nicotine dependence.- will add additional 7 mcg Nicoderm patch to her 21 mcg patch. Sleep apnea and nocturnal hypoxemia on BIBAP COPD Appreciate nephrology input- is there something else nephrology might suggest to improve BP control to 120-130 systolic range and 80 or less diastolic range? Appreciate pulmonary input. Assessment Assessment Would like to make sure her kidney function is stablized and her diabetes co ntrolled as well as her high blood pressure stabilized and controlled before discharge to Rehab facility. Plan Plan of Care See orders. Comment Review of Relevant I have reviewed the following items savita (where applicable) has been applied. Labs Laboratory Tests Test 08/06/20 07:48 08/06/20 08:40 08/06/20 11:49 08/06/20 17:01 Glucose (Fingerstick) 73 mg/dL (70-99) 105 mg/dL (70-99) 291 mg/dL (70-99) Sodium Level 140 mmol/L (136-145) Potassium Level 4.6 mmol/L (3.5-5.1) Chloride Level 107 mmol/L (98-107) Carbon Dioxide Level 24 mmol/L (21-32) Anion Gap 9 (6-14) Blood Urea Nitrogen 54 mg/dL (7-20) Creatinine 2.2 mg/dL (0.6-1.0) Estimated GFR (Cockcroft-Gault) 23.1 Glucose Level 75 mg/dL (70-99) Calcium Level 8.8 mg/dL (8.5-10.1) Test 08/06/20 19:25 08/07/20 03:45 08/07/20 07:43 08/07/20 11:43 Glucose (Fingerstick) 241 mg/dL (70-99) 92 mg/dL (70-99) 95 mg/dL (70-99) Sodium Level 144 mmol/L (136-145) Potassium Level 6.0 mmol/L (3.5-5.1) Chloride Level 105 mmol/L (98-107) Carbon Dioxide Level 25 mmol/L (21-32) Anion Gap 14 (6-14) Blood Urea Nitrogen 65 mg/dL (7-20) Creatinine 2.4 mg/dL (0.6-1.0) Estimated GFR (Cockcroft-Gault) 20.9 BUN/Creatinine Ratio 27 (6-20) Glucose Level 75 mg/dL (70-99) Calcium Level 9.0 mg/dL (8.5-10.1) Total Bilirubin 0.2 mg/dL (0.2-1.0) Aspartate Amino Transf (AST/SGOT) 21 U/L (15-37) Alanine Aminotransferase (ALT/SGPT) 22 U/L (14-59) Alkaline Phosphatase 63 U/L (46-116) Creatine Kinase 77 U/L (26-192) Total Protein 7.6 g/dL (6.4-8.2) Albumin 3.0 g/dL (3.4-5.0) Albumin/Globulin Ratio 0.7 (1.0-1.7) Test 08/07/20 16:38 08/07/20 17:17 08/07/20 20:31 Urine Collection Type Unknown Urine Color Yellow Urine Clarity Cloudy Urine pH 5.0 (<5.0-8.0) Urine Specific [place] 1.020 (1.000-1.030) Urine Protein 100 mg/dL (NEG-TRACE) Urine Glucose (UA) Negative mg/dL (NEG) Urine Ketones (Stick) Negative mg/dL (NEG) Urine Blood Negative (NEG) Urine Nitrite Negative (NEG) Urine Bilirubin Negative (NEG) Urine Urobilinogen Dipstick 0.2 mg/dL (0.2 mg/dL) Urine Leukocyte Esterase Negative (NEG) Urine RBC 1-2 /HPF (0-2) Urine WBC 1-4 /HPF (0-4) Urine Squamous Epithelial Cells Mod /LPF Urine Bacteria Moderate /HPF (0-FEW) Urine Mucus Slight /LPF Glucose (Fingerstick) 129 mg/dL (70-99) 169 mg/dL (70-99) Laboratory Tests Test 08/07/20 03:45 08/07/20 07:43 08/07/20 11:43 08/07/20 16:38 Sodium Level 144 mmol/L (136-145) Potassium Level 6.0 mmol/L (3.5-5.1) Chloride Level 105 mmol/L (98-107) Carbon Dioxide Level 25 mmol/L (21-32) Anion Gap 14 (6-14) Blood Urea Nitrogen 65 mg/dL (7-20) Creatinine 2.4 mg/dL (0.6-1.0) Estimated GFR (Cockcroft-Gault) 20.9 BUN/Creatinine Ratio 27 (6-20) Glucose Level 75 mg/dL (70-99) Calcium Level 9.0 mg/dL (8.5-10.1) Total Bilirubin 0.2 mg/dL (0.2-1.0) Aspartate Amino Transf (AST/SGOT) 21 U/L (15-37) Alanine Aminotransferase (ALT/SGPT) 22 U/L (14-59) Alkaline Phosphatase 63 U/L (46-116) Creatine Kinase 77 U/L (26-192) Total Protein 7.6 g/dL (6.4-8.2) Albumin 3.0 g/dL (3.4-5.0) Albumin/Globulin Ratio 0.7 (1.0-1.7) Glucose (Fingerstick) 92 mg/dL (70-99) 95 mg/dL (70-99) Urine Collection Type Unknown Urine Color Yellow Urine Clarity Cloudy Urine pH 5.0 (<5.0-8.0) Urine Specific [place] 1.020 (1.000-1.030) Urine Protein 100 mg/dL (NEG-TRACE) Urine Glucose (UA) Negative mg/dL (NEG) Urine Ketones (Stick) Negative mg/dL (NEG) Urine Blood Negative (NEG) Urine Nitrite Negative (NEG) Urine Bilirubin Negative (NEG) Urine Urobilinogen Dipstick 0.2 mg/dL (0.2 mg/dL) Urine Leukocyte Esterase Negative (NEG) Urine RBC 1-2 /HPF (0-2) Urine WBC 1-4 /HPF (0-4) Urine Squamous Epithelial Cells Mod /LPF Urine Bacteria Moderate /HPF (0-FEW) Urine Mucus Slight /LPF Test 08/07/20 17:17 08/07/20 20:31 Glucose (Fingerstick) 129 mg/dL (70-99) 169 mg/dL (70-99) Medications Current Medications Nicotine (Nicoderm Cq 21mg) 1 patch DAILY TD Last administered on 08/07/20at 09:31; Start 07/29/20 at 23:55 Alprazolam (Xanax) 1 mg PRN Q8HRS PRN PO ANXIETY / AGITATION Last administered on 07/31/20at 19:20; Start 07/29/20 at 23:15; Stop 08/02/20 at 13:36; Status DC Oxycodone HCl (Roxicodone) 30 mg PRN Q4HRS PRN PO PAIN Last administered on 08/01/20at 06:35; Start 07/29/20 at 23:15; Stop 08/02/20 at 13:36; Status DC Glyburide (Diabeta) 5 mg DAILY08 PO Last administered on 08/07/20at 09:30; Start 07/30/20 at 08:00; Stop 08/08/20 at 00:18; Status DC Mupirocin (Bactroban) 1 jnig TID TP Last administered on 08/07/20at 21:00; Start 07/30/20 at 09:00 Linagliptin (Tradjenta) 5 mg DAILY PO Last administered on 08/07/20at 09:28; Start 07/30/20 at 09:00 Vitamin D (Vitamin D3) 1,000 unit DAILY PO Last administered on 08/07/20at 09:28; Start 07/30/20 at 09:00 Non-Formulary Medication (Clindamycin Phos/Benzoyl Perox (Clind Ph-Benzoyl Perox 1.2-5%)) 1 jing DAILY TP ; Start 07/30/20 at 09:00; Stop 08/02/20 at 07:31; Status DC Duloxetine HCl (Cymbalta) 120 mg DAILY PO Last administered on 08/07/20at 09:28; Start 07/30/20 at 09:00 Albuterol/ Ipratropium (Duoneb) 3 ml RTQID NEB Last administered on 07/31/20at 07:23; Start 07/30/20 at 08:00; Stop 07/31/20 at 11:33; Status DC Atorvastatin Calcium (Lipitor) 5 mg QHS PO Last administered on 08/07/20at 21:36; Start 07/30/20 at 21:00 Nystatin (Mycostatin) 1 jing BID TP Last administered on 08/07/20at 21:00; Start 07/30/20 at 09:00 Pantoprazole Sodium (Protonix) 40 mg DAILYAC PO Last administered on 08/07/20at 09:03; Start 07/30/20 at 07:30 Non-Formulary Medication (Tiotropium [place] (Spiriva)) 2 inh PRN IH ; Start 07/29/20 at 23:30; Status Cancel Non-Formulary Medication ([farxiga] ) 1 tab DAILY PO ; Start 07/30/20 at 09:00; Stop 08/02/20 at 07:31; Status DC Lisinopril (Prinivil) 20 mg DAILY PO Last administered on 08/07/20at 09:29; Start 07/30/20 at 09:00; Stop 08/07/20 at 10:39; Status DC Gabapentin (Neurontin) 300 mg TID PO Last administered on 08/07/20at 21:36; Start 07/30/20 at 09:00 Metformin HCl (Glucophage) 1,000 mg DAILY08 PO Last administered on 08/07/20at 09:28; Start 07/30/20 at 08:00; Stop 08/07/20 at 23:56; Status DC Triamcinolone Acetonide (Kenalog 0.1%) 1 jing BID TP Last administered on 08/07/20at 21:00; Start 07/30/20 at 09:00 Insulin Human Lispro (HumaLOG) 0-7 UNITS TIDWMEALS SQ Last administered on 08/06/20at 17:57; Start 07/30/20 at 08:00 Dextrose (Dextrose 50%-Water Syringe) 12.5 gm PRN Q15MIN PRN IV SEE COMMENTS Last administered on 08/03/20at 07:23; Start 07/30/20 at 00:30 Non-Formulary Medication (Non Formulary Item) 1 ea Fr@0900 SQ ; Start 08/02/20 at 09:00; Stop 08/02/20 at 07:31; Status DC Sucralfate (Carafate) 1 gm BIDAC PO Last administered on 08/07/20at 16:33; Start 07/30/20 at 21:49 Alprazolam (Xanax) 0.5 mg PRN Q8HRS PRN PO ANXIETY / AGITATION; Start 08/02/20 at 13:45; Stop 08/02/20 at 14:34; Status DC Oxycodone HCl (Roxicodone) 20 mg PRN Q4HRS PRN PO PAIN; Start 08/02/20 at 13:45; Stop 08/02/20 at 16:50; Status DC Dexamethasone (Decadron) 6 mg DAILYWBKFT PO Last administered on 08/07/20at 09:28; Start 08/02/20 at 17:00 Acetaminophen/ Hydrocodone Bitart (Lortab 5/325) 1 tab PRN Q4HRS PRN PO PAIN; Start 08/02/20 at 17:00; Stop 08/05/20 at 13:06; Status DC Clonidine HCl (Catapres Tts-1) 1 patch WEEKLY TD Last administered on 08/03/20at 09:52; Start 08/03/20 at 10:00 Alprazolam (Xanax) 1 mg 1X ONCE PO ; Start 08/04/20 at 03:00; Stop 08/04/20 at 03:01; Status DC Alprazolam (Xanax) 0.5 mg 1X ONCE PO ; Start 08/04/20 at 03:30; Stop 08/04/20 at 03:31; Status DC Lorazepam (Ativan Inj) 0.5 mg 1X ONCE IVP ; Start 08/04/20 at 03:30; Stop 08/04/20 at 03:31; Status DC Lorazepam (Ativan Inj) 1 mg 1X ONCE IVP Last administered on 08/04/20at 04:00; Start 08/04/20 at 04:30; Stop 08/04/20 at 04:31; Status DC Lorazepam (Ativan Inj) 1 mg 1X ONCE IVP ; Start 08/04/20 at 04:00; Stop 08/04/20 at 04:01; Status UNV Oxycodone HCl (Roxicodone) 20 mg PRN Q6HRS PRN PO SEVERE PAIN 7-10; Start 08/04/20 at 06:15; Stop 08/05/20 at 13:06; Status DC Alprazolam (Xanax) 0.5 mg PRN BID PRN PO ANXIETY / AGITATION; Start 08/04/20 at 05:30; Stop 08/05/20 at 13:06; Status DC Fentanyl Citrate (Fentanyl 2ml Vial) 25 mcg 1X ONCE IVP ; Start 08/04/20 at 06:30; Stop 08/04/20 at 06:31; Status DC Ondansetron HCl (Zofran) 4 mg PRN Q6HRS PRN IVP NAUSEA/VOMITING 1ST CHOICE; Start 08/04/20 at 05:30 Sodium Chloride 1,000 ml @ 75 mls/hr [id number] IV Last administered on 08/07/20at 15:54; Start 08/04/20 at 06:30 Enoxaparin Sodium (Lovenox 40mg Syringe) 40 mg Q12H SQ Last administered on 08/07/20at 21:35; Start 08/04/20 at 09:00 Hydralazine HCl (Apresoline Inj) 10 mg PRN Q4HRS PRN IVP ELEVATED BP, SEE COMMENTS Last administered on 08/05/20at 15:34; Start 08/04/20 at 11:15 Amlodipine Besylate (Norvasc) 5 mg DAILY PO Last administered on 08/07/20at 09:30; Start 08/05/20 at 12:15 Alprazolam (Xanax) 0.5 mg BID PO Last administered on 08/07/20at 21:35; Start 08/05/20 at 14:00 Oxycodone HCl (Roxicodone) 20 mg QID PO Last administered on 08/08/20at 00:05; Start 08/05/20 at 14:00 Sodium Polystyrene Sulfonate (Kayexalate) 30 gm 1X ONCE PO Last administered on 08/07/20at 12:15; Start 08/07/20 at 11:15; Stop 08/07/20 at 11:17; Status DC Calcium Gluconate (Calcium Gluconate) 1,000 mg 1X ONCE IVP Last administered on 08/07/20at 12:17; Start 08/07/20 at 11:15; Stop 08/07/20 at 11:17; Status DC Dextrose (Dextrose 50%-Water Syringe) 25 gm 1X ONCE IV Last administered on 08/07/20at 12:15; Start 08/07/20 at 11:45; Stop 08/07/20 at 11:46; Status DC Insulin Human Regular (HumuLIN R VIAL) 10 unit 1X ONCE IV Last administered on 08/07/20at 12:24; Start 08/07/20 at 11:45; Stop 08/07/20 at 11:46; Status DC Sodium Bicarbonate (Sodium Bicarb Adult 8.4% Syr) 50 meq 1X ONCE IV Last administered on 08/07/20at 12:14; Start 08/07/20 at 11:45; Stop 08/07/20 at 11:46; Status DC Nicotine (Nicoderm Cq 7mg) 1 patch HS TD Last administered on 08/08/20at 00:05; Start 08/08/20 at 00:00 Latanoprost (Xalatan) 1 drop QHS OU ; Start 08/08/20 at 21:00 Nystatin (Nystatin Oral Susp) 5 ml [id number] ; Start 08/08/20 at 09:00 Active Scripts Active Reported Lumigan (Bimatoprost) 2.5 Ml Drops 1 Drop EACHEYE QHS Trulicity (Dulaglutide) 0.75 Mg/0.5 Ml Pen.injctr 0.75 Mg SQ WEEKLY Vitamin D3 (Cholecalciferol (Vitamin D3)) 125 Mcg Tablet 125 Mcg PO DAILY Omeprazole 40 Mg Capsule.dr 1 Cap PO DAILY Nystatin-Triamcinolone Cream (Nystatin/Triamcin) 15 Gm Cream..g. 1 Jing TP BID Mupirocin Ointment (Mupirocin) 22 Gm Oint...g. 1 Jing TP TID NICODERM CQ 21mg (Nicotine) 1 Each Patch.td24 1 Patch TP DAILY Clind Ph-Benzoyl Perox 1.2-5% (Clindamycin Phos/Benzoyl Perox) 45 Gm Gel.er..g. 1 Jing TP DAILY 30 Days Cymbalta (Duloxetine Hcl) 60 Mg Capsule.dr 2 Cap PO DAILY Alprazolam 1 Mg Tablet 1 Tab PO TID [farxiga] 5 Mg 1 Tab PO DAILY Oxycodone Hcl Immed.release (Oxycodone Hcl) 30 Mg Tablet 1 Tab PO Q4HRS Spiriva (Tiotropium [place]) 18 Mcg Cap.w.dev 2 Inh IH PRN Lovastatin 20 Mg Tablet 20 Mg PO HS [place] 12.5-1,000 Mg Tablet (Alogliptin Jose/Metformin Hcl) 1 Each Tablet 1 Each PO DAILY Combivent Respimat Inhal (Ipratropium/Albuterol Sulfate) 4 Gm Aer.w.adap 2 Inh IH QID Vitals/I & O Vital Sign - Last 24 Hours 08/07/20 08/07/20 08/07/20 08/07/20 07:00 08:30 09:28 09:29 Temp 97.5 97.5 Pulse 69 69 Resp 20 B/P (MAP) 141/63 (89) 141/63 Pulse Ox 99 O2 Delivery Room Air Room Air Room Air 08/07/20 08/07/20 08/07/20 08/07/20 09:30 11:00 15:00 19:00 Temp 97.2 97.4 98.8 97.2 97.4 98.8 Pulse 69 73 77 83 Resp 18 18 20 B/P (MAP) 141/63 154/103 (120) 149/78 (101) 135/64 (87) Pulse Ox 93 95 96 O2 Delivery Room Air Room Air Room Air 08/07/20 08/07/20 08/08/20 08/08/20 19:44 23:44 00:05 00:35 Temp 98.8 98.8 Pulse 80 Resp 20 B/P (MAP) 147/67 (93) Pulse Ox 96 96 97 O2 Delivery Room Air Room Air Room Air Room Air O2 Flow Rate 3.0 Justifications for Admission Other Justification TERRY ALTMAN MD Aug 08, 2020 01:22
[2020-08-08 03:00] VITALS: BP 134/60
[2020-08-08] MEDS: IV NORMAL SALINE 1000ML BAG 1,000 ML IV SCH (03:50)
[2020-08-08 06:43] LABS: BASO % 0 % (0-3); EOS # 0.1 x10^3/uL (0.0-0.7); EOS % 0 % (0-3); HEMATOCRIT 33.4 % (36.0-47.0); HEMOGLOBIN 10.7 g/dL (12.0-15.5); LYMPH % 21 % (24-48); MEAN CORPUSCULAR HEMOGLOBIN 30 pg (25-35); MEAN CORPUSCULAR HGB CONC 32 g/dL (31-37); MEAN CORPUSCULAR VOLUME 94 fL (79-100); MONO # 1.4 x10^3/uL (0.0-1.1); MONO % 10 % (0-9); NEUT % 69 % (31-73); PLATELET COUNT 234 x10^3/uL (140-400); RED BLOOD COUNT 3.57 x10^6/uL (3.50-5.40); RED CELL DISTRIBUTION WIDTH 14.4 % (11.5-14.5); WHITE BLOOD COUNT 14.5 x10^3/uL (4.0-11.0)
[2020-08-08 07:00] VITALS: BP 155/72
[2020-08-08 07:01] LABS: ALBUMIN 2.6 g/dL (3.4-5.0); CALCIUM 8.3 mg/dL (8.5-10.1); CREATININE 1.8 mg/dL (0.6-1.0); GFR 29.1; PHOSPHORUS 4.1 mg/dL (2.6-4.7); POTASSIUM 4.5 mmol/L (3.5-5.1)
[2020-08-08] MEDS: INSULIN LISPRO 300 UNITS/3 ML VIAL. SQ SCH ×2 (08:00→12:25)
[2020-08-08] MEDS: PANTOPRAZOLE 40 MG TABLET.DR. PO SCH (08:09)
[2020-08-08] MEDS: SUCRALFATE 1 GM TABLET. PO SCH (08:09)
[2020-08-08] MEDS: DEXAMETHASONE 4 MG TABLET PO SCH (08:09)
[2020-08-08] MEDS: ALPRAZolam 0.5 MG TABLET PO SCH (08:59)
[2020-08-08] MEDS: DULoxetine HCL 30 MG CAPSULE.DR PO SCH (08:59)
[2020-08-08] MEDS: NYSTATIN 100,000 UNITS/ML 5 ML ORAL.SUSP. SWSW SCH ×2 (09:00→13:00)
[2020-08-08] MEDS: NICOTINE 21MG PATCH. TD SCH (09:00)
[2020-08-08] MEDS: NYSTATIN 100,000 UNIT/GM TOPICAL CREAM 15GM TUBE. TP SCH (09:00)
[2020-08-08] MEDS: GABAPENTIN 100 MG CAPSULE. PO SCH ×2 (09:00→14:10)
[2020-08-08] MEDS ORDERED: GABAPENTIN 300 MG CAPSULE. PO SCH (09:00)
[2020-08-08] MEDS: ENOXAPARIN 40 MG/0.4 ML SYRINGE. SQ SCH (09:00)
[2020-08-08] MEDS: LINAGLIPTIN 5 MG TABLET PO SCH (09:00)
[2020-08-08] MEDS: MUPIROCIN 2 % NASAL OINTMENT 22GM TUBE. TP SCH ×2 (09:00→14:00)
[2020-08-08] MEDS: CHOLECALCIFEROL (VITAMIN D3) 1,000 UNIT TABLET PO SCH (09:00)
[2020-08-08] MEDS: TRIAMCINOLONE ACETONIDE 0.1% TOPICAL CREAM 15GM TUBE. TP SCH (09:00)
--- NOTE | 2020-08-08 09:51 | PDOC ---
PULMONARY PROGRESS NOTES DATE: 08/08/20 TIME: 09:51 Subjective Pt. on room air today feels better today no increased cough or SOB no overnight events Vitals Vital Signs Date Time Temp Pulse Resp B/P (MAP) Pulse Ox O2 Delivery O2 Flow Rate FiO2 08/08/20 09:00 58 155/72 08/08/20 08:59 Room Air 08/08/20 07:00 97.7 17 98 97.7 08/08/20 00:05 3.0 ROS: No Nausea, No Chest Pain, No Abdominal Pain, No Increase Cough General: Alert Lungs: Clear Cardiovascular: S1, S2 Abdomen: Soft, Non-tender, Other (obese) Neuro Exam: Alert Skin: Warm Labs Laboratory Tests Test 08/06/20 11:49 08/06/20 17:01 08/06/20 19:25 08/07/20 03:45 Glucose (Fingerstick) 105 mg/dL (70-99) 291 mg/dL (70-99) 241 mg/dL (70-99) Sodium Level 144 mmol/L (136-145) Potassium Level 6.0 mmol/L (3.5-5.1) Chloride Level 105 mmol/L (98-107) Carbon Dioxide Level 25 mmol/L (21-32) Anion Gap 14 (6-14) Blood Urea Nitrogen 65 mg/dL (7-20) Creatinine 2.4 mg/dL (0.6-1.0) Estimated GFR (Cockcroft-Gault) 20.9 BUN/Creatinine Ratio 27 (6-20) Glucose Level 75 mg/dL (70-99) Calcium Level 9.0 mg/dL (8.5-10.1) Total Bilirubin 0.2 mg/dL (0.2-1.0) Aspartate Amino Transf (AST/SGOT) 21 U/L (15-37) Alanine Aminotransferase (ALT/SGPT) 22 U/L (14-59) Alkaline Phosphatase 63 U/L (46-116) Creatine Kinase 77 U/L (26-192) Total Protein 7.6 g/dL (6.4-8.2) Albumin 3.0 g/dL (3.4-5.0) Albumin/Globulin Ratio 0.7 (1.0-1.7) Test 08/07/20 07:43 08/07/20 11:43 08/07/20 16:38 08/07/20 17:17 Glucose (Fingerstick) 92 mg/dL (70-99) 95 mg/dL (70-99) 129 mg/dL (70-99) Urine Collection Type Unknown Urine Color Yellow Urine Clarity Cloudy Urine pH 5.0 (<5.0-8.0) Urine Specific [place] 1.020 (1.000-1.030) Urine Protein 100 mg/dL (NEG-TRACE) Urine Glucose (UA) Negative mg/dL (NEG) Urine Ketones (Stick) Negative mg/dL (NEG) Urine Blood Negative (NEG) Urine Nitrite Negative (NEG) Urine Bilirubin Negative (NEG) Urine Urobilinogen Dipstick 0.2 mg/dL (0.2 mg/dL) Urine Leukocyte Esterase Negative (NEG) Urine RBC 1-2 /HPF (0-2) Urine WBC 1-4 /HPF (0-4) Urine Squamous Epithelial Cells Mod /LPF Urine Bacteria Moderate /HPF (0-FEW) Urine Mucus Slight /LPF Test 08/07/20 20:31 08/08/20 06:25 08/08/20 07:49 Glucose (Fingerstick) 169 mg/dL (70-99) 91 mg/dL (70-99) White Blood Count 14.5 x10^3/uL (4.0-11.0) Red Blood Count 3.57 x10^6/uL (3.50-5.40) Hemoglobin 10.7 g/dL (12.0-15.5) Hematocrit 33.4 % (36.0-47.0) Mean Corpuscular Volume 94 fL (79-100) Mean Corpuscular Hemoglobin 30 pg (25-35) Mean Corpuscular Hemoglobin Concent 32 g/dL (31-37) Red Cell Distribution Width 14.4 % (11.5-14.5) Platelet Count 234 x10^3/uL (140-400) Neutrophils (%) (Auto) 69 % (31-73) Lymphocytes (%) (Auto) 21 % (24-48) Monocytes (%) (Auto) 10 % (0-9) Eosinophils (%) (Auto) 0 % (0-3) Basophils (%) (Auto) 0 % (0-3) Neutrophils # (Auto) 10.0 x10^3/uL (1.8-7.7) Lymphocytes # (Auto) 3.0 x10^3/uL (1.0-4.8) Monocytes # (Auto) 1.4 x10^3/uL (0.0-1.1) Eosinophils # (Auto) 0.1 x10^3/uL (0.0-0.7) Basophils # (Auto) 0.0 x10^3/uL (0.0-0.2) Sodium Level 141 mmol/L (136-145) Potassium Level 4.5 mmol/L (3.5-5.1) Chloride Level 108 mmol/L (98-107) Carbon Dioxide Level 24 mmol/L (21-32) Anion Gap 9 (6-14) Blood Urea Nitrogen 65 mg/dL (7-20) Creatinine 1.8 mg/dL (0.6-1.0) Estimated GFR (Cockcroft-Gault) 29.1 Glucose Level 96 mg/dL (70-99) Calcium Level 8.3 mg/dL (8.5-10.1) Phosphorus Level 4.1 mg/dL (2.6-4.7) Albumin 2.6 g/dL (3.4-5.0) Laboratory Tests Test 08/07/20 11:43 08/07/20 16:38 08/07/20 17:17 08/07/20 20:31 Glucose (Fingerstick) 95 mg/dL (70-99) 129 mg/dL (70-99) 169 mg/dL (70-99) Urine Collection Type Unknown Urine Color Yellow Urine Clarity Cloudy Urine pH 5.0 (<5.0-8.0) Urine Specific [place] 1.020 (1.000-1.030) Urine Protein 100 mg/dL (NEG-TRACE) Urine Glucose (UA) Negative mg/dL (NEG) Urine Ketones (Stick) Negative mg/dL (NEG) Urine Blood Negative (NEG) Urine Nitrite Negative (NEG) Urine Bilirubin Negative (NEG) Urine Urobilinogen Dipstick 0.2 mg/dL (0.2 mg/dL) Urine Leukocyte Esterase Negative (NEG) Urine RBC 1-2 /HPF (0-2) Urine WBC 1-4 /HPF (0-4) Urine Squamous Epithelial Cells Mod /LPF Urine Bacteria Moderate /HPF (0-FEW) Urine Mucus Slight /LPF Test 08/08/20 06:25 08/08/20 07:49 White Blood Count 14.5 x10^3/uL (4.0-11.0) Red Blood Count 3.57 x10^6/uL (3.50-5.40) Hemoglobin 10.7 g/dL (12.0-15.5) Hematocrit 33.4 % (36.0-47.0) Mean Corpuscular Volume 94 fL (79-100) Mean Corpuscular Hemoglobin 30 pg (25-35) Mean Corpuscular Hemoglobin Concent 32 g/dL (31-37) Red Cell Distribution Width 14.4 % (11.5-14.5) Platelet Count 234 x10^3/uL (140-400) Neutrophils (%) (Auto) 69 % (31-73) Lymphocytes (%) (Auto) 21 % (24-48) Monocytes (%) (Auto) 10 % (0-9) Eosinophils (%) (Auto) 0 % (0-3) Basophils (%) (Auto) 0 % (0-3) Neutrophils # (Auto) 10.0 x10^3/uL (1.8-7.7) Lymphocytes # (Auto) 3.0 x10^3/uL (1.0-4.8) Monocytes # (Auto) 1.4 x10^3/uL (0.0-1.1) Eosinophils # (Auto) 0.1 x10^3/uL (0.0-0.7) Basophils # (Auto) 0.0 x10^3/uL (0.0-0.2) Sodium Level 141 mmol/L (136-145) Potassium Level 4.5 mmol/L (3.5-5.1) Chloride Level 108 mmol/L (98-107) Carbon Dioxide Level 24 mmol/L (21-32) Anion Gap 9 (6-14) Blood Urea Nitrogen 65 mg/dL (7-20) Creatinine 1.8 mg/dL (0.6-1.0) Estimated GFR (Cockcroft-Gault) 29.1 Glucose Level 96 mg/dL (70-99) Calcium Level 8.3 mg/dL (8.5-10.1) Phosphorus Level 4.1 mg/dL (2.6-4.7) Albumin 2.6 g/dL (3.4-5.0) Glucose (Fingerstick) 91 mg/dL (70-99) Medications Active Scripts Medications Dose Route/Sig Max Daily Dose Days Date Category Trulicity (Dulaglutide) 0.75 Mg/0.5 Ml Pen.injctr 0.75 Mg SQ WEEKLY 07/29/20 Reported Vitamin D3 (Cholecalciferol (Vitamin D3)) 125 Mcg Tablet 125 Mcg PO DAILY 07/29/20 Reported Omeprazole 40 Mg Capsule.dr 1 Cap PO DAILY 07/29/20 Reported Nystatin-Triamcinolone Cream (Nystatin/Triamcin) 15 Gm Cream..g. 1 Jing TP BID 07/29/20 Reported Mupirocin Ointment (Mupirocin) 22 Gm Oint...g. 1 Jing TP TID 07/29/20 Reported NICODERM CQ 21mg (Nicotine) 1 Each Patch.td24 1 Patch TP DAILY 07/29/20 Reported Clind Ph-Benzoyl Perox 1.2-5% (Clindamycin Phos/Benzoyl Perox) 45 Gm Gel.er..g. 1 Jing TP DAILY 30 07/29/20 Reported Cymbalta (Duloxetine Hcl) 60 Mg Capsule.dr 2 Cap PO DAILY 07/29/20 Reported Alprazolam 1 Mg Tablet 1 Tab PO TID 07/29/20 Reported [farxiga] 5 Mg 1 Tab PO DAILY 10/05/17 Reported Oxycodone Hcl Immed.release (Oxycodone Hcl) 30 Mg Tablet 1 Tab PO Q4HRS 10/05/17 Reported Spiriva (Tiotropium [place]) 18 Mcg Cap.w.dev 2 Inh IH PRN 10/05/17 Reported Lovastatin 20 Mg Tablet 20 Mg PO HS 10/05/17 Reported Kazano 12.5-1,000 Mg Tablet (Alogliptin Joes/Metformin Hcl) 1 Each Tablet 1 Each PO DAILY 11/11/15 Reported Combivent Respimat Inhal (Ipratropium/Albuterol Sulfate) 4 Gm Aer.w.adap 2 Inh IH QID 03/13/15 Reported Impression . IMPRESSION: 1. Acute hypoxemic hypercapnic respiratory failure--improving 2. COVID-19 viral pneumonia. 3. Type 2 diabetes w/ hyperglycemia on steroids 4. Fibular fracture. 5. Recent out of hospital arrest. 6. Chronic posttraumatic stress syndrome. 7. Anxiety disorder. 8. History of bipolar disorder. 9. Morbid obesity. 10. Tobacco dependent. 11. Acute exacerbation of chronic obstructive pulmonary disease. 12. Coronary artery disease. 13. Hypertension. 14. Hyperlipidemia. 15. Combination of respiratory and metabolic acidosis--resolved 16.[id number] on CKD worsening Plan . PLAN: Continue to clinically improve Continue supplemental oxygen to keep sats above 90% 6 min walk before discharge Pt. will need out patient sleep study Continue steroids, will need full 10 day course BIPAP at HS and PRN Avoid sedative medications Follow nephrology recs -- worsening renal function, avoid nephrotoxic meds, IVF DVT/GI PPX D/W e business project manager for DC planning -- KAIN LEE MD Aug 08, 2020 09:51
--- NOTE | 2020-08-08 10:00 | PDOC ---
DATE OF SERVICE DATE: 08/08/20 TIME: 09:58 SUBJECTIVE ROS Currently no acute complaints by patient . No concerns voiced by nursing . OBJECTIVE Vital Signs Vital Signs Date Time Temp Pulse Resp B/P (MAP) Pulse Ox O2 Delivery O2 Flow Rate FiO2 08/08/20 09:00 58 155/72 08/08/20 08:59 Room Air 08/08/20 07:00 97.7 17 98 97.7 08/08/20 00:05 3.0 I & 0 Intake and Output 08/08/20 07:00 Intake Total 450 ml Balance 450 ml Intake Oral 450 ml # Voids 5 PHYSICAL EXAM Physical Exam Gen NAD, Morbidly Obese HEEN OM moist, No icterus, On NC O2 Lungs No acc muscle use Neuro axoX3 CV S1S2 No Patel \ DIAGNOSIS/ASSESSMENT Assessment & Plan FEROZ -Vasomotor/ did resolve ; Worsened again - improving now , UA unremarkable Renal US unremarkable ,Supportive care, maintain hydration, strict I/O Avoid nephrotoxins . Follow up with PCP post dc HyperKalemia DCed Lisinopril ; K normal this morning CKD stage 3A - baseline Cr 1-1.2 since 2016 HTN - BP Low for her as she has been running high BP's ,management per primary, recommend holding antihypertensives if BP stay low HyperNatremia POA probabaly 2/2 water deficit , resolved Cat bite with associated cellulitis. Fracture of the lower extremity- Fibular fracture. Acute hypoxemic hypercapnic respiratory failure. COVID-19 viral pneumonia. Type 2 diabetes Uncontrolled. Recommend DC Metformin due to FEROZ . Defer to Primary Recent out of hospital arrest. Chronic posttraumatic stress syndrome. COMMENT/RELEVANT DATA Meds Current Medications Medications (Trade) Dose Ordered Sig/Honey Start Time Stop Time Status Last Admin Dose Admin Acetaminophen/ Hydrocodone Bitart (Lortab 5/325) 1 tab PRN Q4HRS PRN 08/02/20 17:00 08/05/20 13:06 DC Albuterol/ Ipratropium (Duoneb) 3 ml RTQID 07/30/20 08:00 07/31/20 11:33 DC 07/31/20 07:23 3 ML Alprazolam (Xanax) 0.5 mg BID 08/05/20 14:00 08/08/20 08:59 0.5 MG Amlodipine Besylate (Norvasc) 5 mg DAILY 08/05/20 12:15 08/08/20 09:00 5 MG Atorvastatin Calcium (Lipitor) 5 mg QHS 07/30/20 21:00 08/07/20 21:36 5 MG Calcium Gluconate (Calcium Gluconate) 1,000 mg 1X ONCE 08/07/20 11:15 08/07/20 11:17 DC 08/07/20 12:17 1,000 MG Clonidine HCl (Catapres Tts-1) 1 patch WEEKLY 08/03/20 10:00 08/03/20 09:52 1 PATCH Dexamethasone (Decadron) 6 mg DAILYWBKFT 08/02/20 17:00 08/08/20 08:09 6 MG Dextrose (Dextrose 50%-Water Syringe) 25 gm 1X ONCE 08/07/20 11:45 08/07/20 11:46 DC 08/07/20 12:15 25 GM Duloxetine HCl (Cymbalta) 120 mg DAILY 07/30/20 09:00 08/08/20 08:59 120 MG Enoxaparin Sodium (Lovenox 40mg Syringe) 40 mg Q12H 08/04/20 09:00 08/08/20 09:00 40 MG Fentanyl Citrate (Fentanyl 2ml Vial) 25 mcg 1X ONCE 08/04/20 06:30 08/04/20 06:31 DC Gabapentin (Neurontin) 100 mg TID 08/08/20 09:00 08/08/20 09:00 100 MG Glyburide (Diabeta) 5 mg DAILY08 07/30/20 08:00 08/08/20 00:18 DC 08/07/20 09:30 5 MG Hydralazine HCl (Apresoline Inj) 10 mg PRN Q4HRS PRN 08/04/20 11:15 08/05/20 15:34 10 MG Insulin Glargine (Lantus Syringe) 10 unit QHS 08/08/20 21:00 Insulin Human Lispro (HumaLOG) 0-7 UNITS TIDWMEALS 07/30/20 08:00 08/06/20 17:57 6 UNITS Insulin Human Regular (HumuLIN R VIAL) 10 unit 1X ONCE 08/07/20 11:45 08/07/20 11:46 DC 08/07/20 12:24 10 UNIT Latanoprost (Xalatan) 1 drop QHS 08/08/20 21:00 Linagliptin (Tradjenta) 5 mg DAILY 07/30/20 09:00 08/08/20 09:00 5 MG Lisinopril (Prinivil) 20 mg DAILY 07/30/20 09:00 08/07/20 10:39 DC 08/07/20 09:29 20 MG Lorazepam (Ativan Inj) 1 mg 1X ONCE 08/04/20 04:00 08/04/20 04:01 UNV Metformin HCl (Glucophage) 1,000 mg DAILY08 07/30/20 08:00 08/07/20 23:56 DC 08/07/20 09:28 1,000 MG Mupirocin (Bactroban) 1 ileana TID 07/30/20 09:00 08/07/20 21:00 1 ILEANA Nicotine (Nicoderm Cq 14mg) 1 patch HS 08/08/20 21:00 Nicotine (Nicoderm Cq 21mg) 1 patch DAILY 07/29/20 23:55 08/08/20 09:00 1 PATCH Nicotine (Nicoderm Cq 7mg) 1 patch HS 08/08/20 00:00 08/08/20 02:49 DC 08/08/20 00:05 1 PATCH Non-Formulary Medication (Clindamycin Phos/Benzoyl Perox (Clind Ph-Benzoyl Perox 1.2-5%)) 1 ileana DAILY 07/30/20 09:00 08/02/20 07:31 DC Non-Formulary Medication (Non Formulary Item) 1 ea Fr@0900 08/02/20 09:00 08/02/20 07:31 DC Non-Formulary Medication (Tiotropium Ronan (Spiriva)) 2 inh PRN 07/29/20 23:30 Cancel Non-Formulary Medication ([farxiga] ) 1 tab DAILY 07/30/20 09:00 08/02/20 07:31 DC Nystatin (Mycostatin) 1 ileana BID 07/30/20 09:00 08/07/20 21:00 1 ILEANA Nystatin (Nystatin Oral Susp) 5 ml [id number] 08/08/20 09:00 08/08/20 09:00 5 ML Ondansetron HCl (Zofran) 4 mg PRN Q6HRS PRN 08/04/20 05:30 Oxycodone HCl (Roxicodone) 20 mg QID 08/05/20 14:00 08/08/20 08:59 20 MG Pantoprazole Sodium (Protonix) 40 mg DAILYAC 07/30/20 07:30 08/08/20 08:09 40 MG Sodium Polystyrene Sulfonate (Kayexalate) 30 gm 1X ONCE 08/07/20 11:15 08/07/20 11:17 DC 08/07/20 12:15 30 GM Sodium Bicarbonate (Sodium Bicarb Adult 8.4% Syr) 50 meq 1X ONCE 08/07/20 11:45 08/07/20 11:46 DC 08/07/20 12:14 50 MEQ Sodium Chloride 1,000 ml @ 75 mls/hr [id number] 08/04/20 06:30 08/08/20 03:50 75 MLS/HR Sucralfate (Carafate) 1 gm BIDAC 07/30/20 21:49 08/08/20 08:09 1 GM Triamcinolone Acetonide (Kenalog 0.1%) 1 ileana BID 07/30/20 09:00 08/07/20 21:00 1 ILEANA Vitamin D (Vitamin D3) 1,000 unit DAILY 07/30/20 09:00 08/08/20 09:00 1,000 UNIT Lab Laboratory Tests Test 08/07/20 11:43 08/07/20 16:38 08/07/20 17:17 08/07/20 20:31 Glucose (Fingerstick) 95 mg/dL (70-99) 129 mg/dL (70-99) 169 mg/dL (70-99) Urine Collection Type Unknown Urine Color Yellow Urine Clarity Cloudy Urine pH 5.0 (<5.0-8.0) Urine Specific Bland 1.020 (1.000-1.030) Urine Protein 100 mg/dL (NEG-TRACE) Urine Glucose (UA) Negative mg/dL (NEG) Urine Ketones (Stick) Negative mg/dL (NEG) Urine Blood Negative (NEG) Urine Nitrite Negative (NEG) Urine Bilirubin Negative (NEG) Urine Urobilinogen Dipstick 0.2 mg/dL (0.2 mg/dL) Urine Leukocyte Esterase Negative (NEG) Urine RBC 1-2 /HPF (0-2) Urine WBC 1-4 /HPF (0-4) Urine Squamous Epithelial Cells Mod /LPF Urine Bacteria Moderate /HPF (0-FEW) Urine Mucus Slight /LPF Test 08/08/20 06:25 08/08/20 07:49 White Blood Count 14.5 x10^3/uL (4.0-11.0) Red Blood Count 3.57 x10^6/uL (3.50-5.40) Hemoglobin 10.7 g/dL (12.0-15.5) Hematocrit 33.4 % (36.0-47.0) Mean Corpuscular Volume 94 fL (79-100) Mean Corpuscular Hemoglobin 30 pg (25-35) Mean Corpuscular Hemoglobin Concent 32 g/dL (31-37) Red Cell Distribution Width 14.4 % (11.5-14.5) Platelet Count 234 x10^3/uL (140-400) Neutrophils (%) (Auto) 69 % (31-73) Lymphocytes (%) (Auto) 21 % (24-48) Monocytes (%) (Auto) 10 % (0-9) Eosinophils (%) (Auto) 0 % (0-3) Basophils (%) (Auto) 0 % (0-3) Neutrophils # (Auto) 10.0 x10^3/uL (1.8-7.7) Lymphocytes # (Auto) 3.0 x10^3/uL (1.0-4.8) Monocytes # (Auto) 1.4 x10^3/uL (0.0-1.1) Eosinophils # (Auto) 0.1 x10^3/uL (0.0-0.7) Basophils # (Auto) 0.0 x10^3/uL (0.0-0.2) Sodium Level 141 mmol/L (136-145) Potassium Level 4.5 mmol/L (3.5-5.1) Chloride Level 108 mmol/L (98-107) Carbon Dioxide Level 24 mmol/L (21-32) Anion Gap 9 (6-14) Blood Urea Nitrogen 65 mg/dL (7-20) Creatinine 1.8 mg/dL (0.6-1.0) Estimated GFR (Cockcroft-Gault) 29.1 Glucose Level 96 mg/dL (70-99) Calcium Level 8.3 mg/dL (8.5-10.1) Phosphorus Level 4.1 mg/dL (2.6-4.7) Albumin 2.6 g/dL (3.4-5.0) Glucose (Fingerstick) 91 mg/dL (70-99) Results All relevant outside records, renal labs, imaging studies, telemetry/EKG's were reviewed. Justicifation of Admission Dx: Justifications for Admission: Justification of Admission Dx: N/A BRADLEY VUONG MD Aug 08, 2020 10:00
[2020-08-08 11:00] VITALS: BP 156/84
--- NOTE | 2020-08-08 16:19 | NUR ---
Discharge Note: DANIELA MICHELLE [address] Discharge instructions and discharge home medications reviewed with Other facility spoke with JOHN Moreno and a copy given. All questions have been answered and understanding verbalized. The following instructions and handouts were given: discharge instructions, med rec, and follow up recommendations. Discontinued lines and drains: Peripheral IV intact. [facility]
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
--- NOTE | 2020-08-08 18:45 | SNU/HH DC ---
DISCHARGE ORDERS DISCHARGE INFORMATION: CONDITION ON DISCHARGE: Stable CODE STATUS: Code Status: Full LONG-TERM: SNF STAY <30 DAYS: Yes HOSPICE: HOSPICE: No HOSPICE EVAL & TREAT: No POST DISCHARGE ORDERS: ACTIVITY ORDERS: Activity as tolerated WEIGHT BEARING STATUS: Other, see below BATHING ORDERS: Shower-keep dressing dry (May shower with assistance.) DIET AFTER DISCHARGE: Renal WOUND/INCISION CARE: Change dressing, Other, see below OTHER ORDERS: Mupiricin to open sores on lright leg and arms. CHECKS AFTER DISCHARGE: CHECKS AFTER DISCHARGE: Check blood press - daily (Check BP 3 times a day q shift and prn. Notify MD if Systolic 150 or greater and/or diastolic 90 or greater.), Check blood sugar, ac/hs (Check blood sugars before each meal and at HS), Check your Temp as needed, Weigh Yourself Daily (Weigh weekly, dadily if patient is developing pedal edema.) FOLLOW-UP: PHYSICIAN FOLLOW-UP: Orhopedics as requested- Dr. aCmarena at discharge. ADDITIONAL FOLLOW-UP: Primary Care Physician post discharge. LAB ORDERS FOR FOLLOW-UP: Needs to check CMP, CBC every other ANTICOAGULATION F/U NEEDED: Will receive Lovenox BID x 5 days. Additional Instructions: Will need to monitor, BUN, CR, HGB, glucose, Calcium, electrolytes to make sure that they continue to improve to baseline and stabilize. TREATMENT/EQUIPMENT ORDERS: ADAPTIVE EQUIPMENT NEEDED: None, Front wheeled walker (needs walker with se at.), Long handled shoe horn, Long handled sponge, Raised toilet seat w/arms, Lumber Material Handler, Sock aid, Walker bag RESPIRATORY EQUIPMENT NEEDED: BiPAP Physical Therapy For: Evalulation/Treatment Occupational Therapy For: Evaluation/Treatment DISCHARGE MEDICATIONS: Home Meds Reported Medications Bimatoprost (LUMIGAN) 2.5 Ml Drops, 1 DROP EACHEYE QHS for glaucoma, #7.5 ML 3 Refills 08/07/20 Dulaglutide (Trulicity) 0.75 Mg/0.5 Ml Pen.injctr, 0.75 MG SQ WEEKLY for diabetes, EACH 07/29/20 Cholecalciferol (Vitamin D3) (Vitamin D3) 125 Mcg Tablet, 125 MCG PO DAILY for VITAMIN, TAB 07/29/20 Omeprazole (OMEPRAZOLE) 40 Mg Capsule.dr, 1 CAP PO DAILY for GERD, #30 CAP 3 Refills 5/31/21 Nystatin/Triamcin (NYSTATIN-TRIAMCINOLONE CREAM) 15 Gm Cream..g., 1 TAYLER TP BID for ARM SORES, #15 GM 1 Refill 07/29/20 Mupirocin (MUPIROCIN OINTMENT) 22 Gm Oint...g., 1 TAYLER TP TID for WOUND CARE, #1 EACH 07/29/20 Nicotine (NICODERM CQ 21mg) 1 Each Patch.td24, 1 PATCH TP DAILY for SMOKING, #28 PATCH 1 Refill 07/29/20 Clindamycin Phos/Benzoyl Perox (CLIND PH-BENZOYL PEROX 1.2-5%) 45 Gm Gel.er..g., 1 TAYLER TP DAILY for ROSACIA TO FACE for 30 Days, #45 GM 0 Refills 07/29/20 Duloxetine Hcl (CYMBALTA) 60 Mg Capsule.dr, 2 CAP PO DAILY for DEPRESSION, #90 CAP 3 Refills 07/29/20 Alprazolam (ALPRAZOLAM) 1 Mg Tablet, 1 TAB PO TID for ANXIETY, #90 TAB 07/29/20 Oxycodone Hcl (OXYCODONE HCL IMMED.RELEASE ) 30 Mg Tablet, 1 TAB PO Q4HRS, #180 TAB 10/05/17 Tiotropium Coy (SPIRIVA) 18 Mcg Cap.w.dev, 2 INH IH PRN, #1 INH 0 Refills 10/05/17 Lovastatin (LOVASTATIN) 20 Mg Tablet, 20 MG PO HS, TAB 10/05/17 Ipratropium/Albuterol Sulfate (COMBIVENT RESPIMAT INHAL) 4 Gm Aer.w.adap, 2 INH IH QID, INHALER 03/13/15 Discontinued Reported Medications [farxiga] 5 MG No Conflict Check, 1 TAB PO DAILY 10/05/17 Alogliptin Jose/Metformin Hcl (KAZANO 12.5-1,000 MG TABLET) 1 Each Tablet, 1 EACH PO DAILY 11/11/15 TERRY ALTMAN MD Aug 08, 2020 18:45
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
[2020-08-08] MEDS ORDERED: NICOTINE 14MG PATCH. TD SCH (21:00)
[2020-08-08] MEDS ORDERED: INSULIN GLARGINE SYRINGE. SQ SCH (21:00)
[2020-08-08] MEDS ORDERED: LATANOPROST 0.005% OPHTH SOLUTION 2.5ML BOTTLE. OU SCH (21:00)
== END 2020-08-08 16:19 | DRG 562 ==
LOC: 4 NORTH 22:02 → 6 SOUTH 07-31 11:17
PROVIDERS: ADMIT Family Medicine; ATTEND Family Medicine
PROC: 5A09357 Assistance with Respiratory Ventilation, Less than 24 Consecutive Hours, Continuous Positive Airway Pressure (ICD-10-PCS; 2020-08-02)
PROC: 5A09357 Assistance with Respiratory Ventilation, Less than 24 Consecutive Hours, Continuous Positive Airway Pressure (ICD-10-PCS; 2020-08-03)
PROC: 5A09357 Assistance with Respiratory Ventilation, Less than 24 Consecutive Hours, Continuous Positive Airway Pressure (ICD-10-PCS; 2020-08-04)
PROC: 5A09357 Assistance with Respiratory Ventilation, Less than 24 Consecutive Hours, Continuous Positive Airway Pressure (ICD-10-PCS; 2020-08-05)
PROC: 5A09357 Assistance with Respiratory Ventilation, Less than 24 Consecutive Hours, Continuous Positive Airway Pressure (ICD-10-PCS; principal; 2020-08-06)
DX: S82.832A Other fracture of upper and lower end of left fibula, initial encounter for closed fracture (principal); U07.1 COVID-19; J96.01 Acute respiratory failure with hypoxia; J12.82 Pneumonia due to coronavirus disease 2019; J96.02 Acute respiratory failure with hypercapnia; G92 Toxic encephalopathy; N17.0 Acute kidney failure with tubular necrosis; E87.4 Mixed disorder of acid-base balance; G93.40 Encephalopathy, unspecified; J44.0 Chronic obstructive pulmonary disease with (acute) lower respiratory infection; J44.1 Chronic obstructive pulmonary disease with (acute) exacerbation; J98.11 Atelectasis; L03.90 Cellulitis, unspecified; N18.4 Chronic kidney disease, stage 4 (severe); E87.0 Hyperosmolality and hypernatremia; E03.9 Hypothyroidism, unspecified; E11.22 Type 2 diabetes mellitus with diabetic chronic kidney disease; E11.42 Type 2 diabetes mellitus with diabetic polyneuropathy; E11.43 Type 2 diabetes mellitus with diabetic autonomic (poly)neuropathy; E11.65 Type 2 diabetes mellitus with hyperglycemia; E66.01 Morbid (severe) obesity due to excess calories; E78.5 Hyperlipidemia, unspecified; E87.5 Hyperkalemia; F17.200 Nicotine dependence, unspecified, uncomplicated; F20.9 Schizophrenia, unspecified; F31.9 Bipolar disorder, unspecified; F43.12 Post-traumatic stress disorder, chronic; F70 Mild intellectual disabilities; G47.30 Sleep apnea, unspecified; G89.29 Other chronic pain; H40.9 Unspecified glaucoma; I12.9 Hypertensive chronic kidney disease with stage 1 through stage 4 chronic kidney disease, or unspecified chronic kidney disease; I25.10 Atherosclerotic heart disease of native coronary artery without angina pectoris; K21.9 Gastro-esophageal reflux disease without esophagitis; K31.84 Gastroparesis; M17.0 Bilateral primary osteoarthritis of knee; T38.0X5A Adverse effect of glucocorticoids and synthetic analogues, initial encounter; W01.0XXA Fall on same level from slipping, tripping and stumbling without subsequent striking against object, initial encounter; W55.01XA Bitten by cat, initial encounter; Z62.810 Personal history of physical and sexual abuse in childhood; Z79.899 Other long term (current) drug therapy; Z80.3 Family history of malignant neoplasm of breast; Z82.49 Family history of ischemic heart disease and other diseases of the circulatory system; Z83.3 Family history of diabetes mellitus; Z90.49 Acquired absence of other specified parts of digestive tract; Z90.710 Acquired absence of both cervix and uterus; Z91.19 Patient's noncompliance with other medical treatment and regimen; Z91.410 Personal history of adult physical and sexual abuse; Z60.2 Problems related to living alone; Z79.4 Long term (current) use of insulin
CPT/HCPCS: 36415; 36600; 70450; 71045; 72125; 73562; 76770; 80048; 80053; 80061; 80069; 81001; 82550; 82805; 82962; 83036; 83735; 84443; 85025; 85379; 85610; 85730; 87086; 93005; 93926; 93971; 94640; 94660; 94760; J0360; J0610; J1650; J1815; J2060; J3010; J3490; J7030; P9612; U0003; U0005; 97116-GP; 97530-GO; 97530-GP; 97535-GO; 99285-25; G0378

== ENCOUNTER 2020-08-10 00:34 | Emergency (ER) | payer MEDICARE, MEDICAID ==
[~2020-08-10] VITALS: Ht 172.7 cm; Wt 151.8 kg
[~2020-08-10 00:34] MED LIST changes: +BIMA2.5D EACHEYE; +DULA0.75 SQ
[2020-08-10 01:52] VITALS: BP 164/84
== END 2020-08-10 01:52 | disposition left against medical advice (07) ==
LOC: ER 00:34
DX: R06.02 Shortness of breath (principal); Z53.21 Procedure and treatment not carried out due to patient leaving prior to being seen by health care provider

== ENCOUNTER → 2020-09-26 | Outpatient (CLI) | payer MEDICARE, MEDICAID ==
--- NOTE | 2020-09-26 10:58 | RAD ---
EXAM: AP and lateral views left tibia/fibula DATE: 09/26/2020 7:50 AM INDICATION: Reason: NON DISPLACED FRACTURE PROXIMAL FIBULA / Spl. Instructions: / History: . COMPARISON: No Prior FINDINGS/ IMPRESSION: 1. Moderate soft tissue swelling about the left lower leg. 2. Progressively healing fibular head fracture is grossly stable in alignment and can be further pro filed by knee radiographs if clinically indicated. Electronically signed by: sIsac Mcneil MD (09/26/2020 10:56 AM) [id number]
== END ==
LOC: RAD 07:34
PROVIDERS: ATTEND Family Medicine
DX: S82.492D Other fracture of shaft of left fibula, subsequent encounter for closed fracture with routine healing (principal); M79.89 Other specified soft tissue disorders; X58.XXXD Exposure to other specified factors, subsequent encounter
CPT/HCPCS: 73590

== ENCOUNTER → 2020-10-25 | Outpatient (CLI) | payer MEDICARE, MEDICAID ==
[~2020-10-25] MED LIST changes: -CLIN150C15 PO; +CLIN150C16 PO; +OXYC20TA PO
--- NOTE | 2020-10-28 09:42 | RAD ---
EXAM: MRI LEFT KNEE DATE: 10/25/2020 2:01 PM CLINICAL INDICATION: Reason: LEFT KNEE PAIN / Spl. Instructions: / History: COMPARISON: Tibia/fibular radiographs 09/26/2020 TECHNIQUE: Multiplanar, multisequence MRI of the LEFT knee was performed without contrast. FINDINGS: Examination is markedly limited by motion artifact. Moderate knee joint effusion with associated synovitis.. No lipohemarthrosis. Small Jose's cyst. ACL is intact. Mild increased signal and thickening of the PCL likely from low-grade sprain. No discr ete PCL tear is identified. MCL is intact with bowing of the medial meniscus. Fibular collateral ligament, biceps femoris, IT ban d are intact. Popliteus is intact, normal in signal and morphology. Medial meniscus: Complex tear posterior horn-body junction with oblique and radial components. There is extrusion of the body segment approximately 8 mm. Lateral meniscus: Intact Regions of full-thickness chondral effacement at the medial compartment with subchondral edema. Nondi splaced avulsion fracture of the fibular head/neck mild edema at the interface IMPRESSION: 1. Complex tear body-posterior horn medial meniscus with oblique and radial components as well as ex trusion of the body segment. 2. Medial compartment chondral effacement with subchondral edema. 3. Moderate knee joint effusion. 4. Nondisplaced avulsion fracture fibular head/neck with mild edema at the interface, without signif icant marrow edema likely chronic Electronically signed by: Issac Mcneil MD (10/28/2020 9:40 AM) [id number]
== END ==
LOC: MRI 14:07
PROVIDERS: ATTEND Family Medicine
DX: S83.232A Complex tear of medial meniscus, current injury, left knee, initial encounter (principal); S82.65XA Nondisplaced fracture of lateral malleolus of left fibula, initial encounter for closed fracture; M25.462 Effusion, left knee; X58.XXXA Exposure to other specified factors, initial encounter; Y93.89 Activity, other specified; Y92.89 Other specified places as the place of occurrence of the external cause; Y99.8 Other external cause status; M71.22 Synovial cyst of popliteal space [Baker], left knee
CPT/HCPCS: 73721

== ENCOUNTER 2020-12-05 19:44 | Emergency (ER) | payer MEDICARE, MEDICAID ==
[~2020-12-05] VITALS: Ht 185.4 cm; Wt 154.5 kg
[~2020-12-05 19:44] MED LIST changes: -DULO60CA6 PO; +DULO60CA7 PO
[2020-12-05] MEDS ORDERED: HYDROmorphone 2 MG/ML VIAL IM ONE (20:00)
--- NOTE | 2020-12-05 20:01 | PHYS DOC ---
Past Medical History Past Medical History: Anxiety, Arthritis, Asthma, CAD, Depression, Diabetes- Type II, Hypertension, MRSA, Schizophrenia, Other Additional Past Medical Histor: SLEEP APNEA, NEUROPATHY, CHRONIC BACK PROBLEMS Past Medical History Chronic left knee pain Past Surgical History: Appendectomy, Cholecystectomy, , Hysterectomy, Other Additional Past Surgical Histo: SWEAT GLAND REMOVAL Smoking Status: Current Every Day Smoker Alcohol Use: Occasionally Drug Use: None General Adult EDM: Chief Complaint: Left knee pain HPI: HPI: Patient is a 55 year old female presents via EMS with acute on chronic left knee pain. Patient reports she has been waiting to follow-up with orthopedics and felt a "pop "in her knee with subsequent pain while ambulating from the bathroom. Denies head trauma or loss of consciousness. Patient is on chronic pain medications with Oxycodone 20mg and Percocet 10/325mg. Hx of arthritis and neuropathy. Patient reports significant pain to left knee. Patient reports she does have a [id number] knee brace that she was not wearing at the time of incident. Denies numbness or tingling. Review of Systems: Review of Systems: Constitutional: Denies fever or chills Eyes: Denies redness or eye pain HENT: Denies nasal congestion or sore throat Respiratory: Denies cough or shortness of breath Cardiovascular: Denies chest pain or palpitations GI: Denies abdominal pain, nausea, or vomiting : Denies dysuria or hematuria Musculoskeletal: Reports left knee pain Integument: Denies rash or skin lesions Neurologic: Denies headache, focal weakness or sensory changes Complete systems were reviewed and found to be within normal limits, except as documented in this note. Heart Score: C/O Chest Pain: N/A Allergies: Allergies: Allergies Coded Allergies Type Severity Reaction Last Updated Verified Penicillins Allergy Severe Anaphylaxis 01/12/17 Yes venom-wasp Allergy Severe Anaphylaxis 01/12/17 Yes morphine Allergy Intermediate Hives 01/12/17 Yes Physical Exam: PE: Constitutional: Well developed, morbidly obese, no acute distress, non-toxic appearance HENT: Normocephalic, atraumatic Eyes: Conjunctiva normal, no discharge Neck: Normal range of motion, supple Lungs & Thorax: No respiratory distress, equal chest rise and fall Skin: Warm, dry, no erythema, no rash Extremities: Left knee anterior tenderness, ROM limited, patient guarding knee and therefore difficult to assess anterior drawer. Neurologic: Alert and oriented X 3, no focal deficits noted Psychologic: Affect normal, judgment normal EKG: EKG: [] Radiology/Procedures: Radiology/Procedures: PROCEDURE: KNEE LEFT 3V Three-view left knee dated 12/05/2020. No comparison available. CLINICAL INDICATION: Pain. FINDINGS: 3 views left knee show normal bony alignment. No displaced fracture. Mild tri compartmental hypertrophic change. Small joint effusion. No loose body. There is vascular calcinosis. IMPRESSION: 1. No acute radiographic abnormality. 2. Mild tricompartmental DJD. 3. Suspected small joint effusion. If there is clinical concern for occult fracture or internal derangement, MRI would better evaluate. Electronically signed by: Vamshi Ayala MD (12/06/2020 3:03 AM) [facility] Course & Med Decision Making: Course & Med Decision Making Pertinent Imaging studies reviewed. (See chart for details) Morbidly obese patient presents with report of acute on chronic left knee pain. Patient reports hearing a "pop ". Patient presents via EMS. Patient on significant chronic pain medications. Reports allergy to morphine. Dilaudid IM therefore provided. Ice pack provided. X-ray obtained without acute fracture or dislocation. Rubén wrap and knee immobilizer provided. Rx for a walker provided. Patient stable for discharge with outpatient follow-up with PCP/orthopedics. Orthopedic referral provided. Patient stable for discharge with outpatient follow-up with PCP. Discussed findings and plan with patient, who acknowledges understanding and agreement. Alivia Disclaimer: Alivia Disclaimer: This electronic medical record was generated, in whole or in part, using a voice recognition dictation system. Splinting Splinting : Location: Left knee Pre-Made Type: knee immobilizer (and RUBÉN bandage) Pre-Proc Neuro Vasc Exam: normal Post-Proc Neuro Vasc Exam: normal, unchanged from pre-exam Departure Departure Impression: Primary Impression: Chronic knee pain Qualified Codes: M25.562 - Pain in left knee; G89.29 - Other chronic pain Additional Impression: Arthritis Disposition: 01 HOME / SELF CARE / HOMELESS Condition: STABLE Referrals: TERRY ALTMAN MD (PCP) CHAPARRO MIRANDA MD Patient Instructions: Knee Immobilizer, [id number], Knee Pain, [id number], Knee Wraps (Elastic Bandage) and RICE, Walker Use Additional Instructions: ICE area of discomfort 20 min on then leave off next 20 mins. Repeat several times daily as needed for next few days. Continue previously prescribed pain medications as needed. Scripts Naproxen (NAPROXEN) 375 Mg Tablet 375 MG PO TID PRN PRN for PAIN, #30 TAB Prov: VAMSHI CARLISLE DO 12/05/20 VAMSHI CARLISLE DO Dec 05, 2020 20:01
[2020-12-05 20:44] VITALS: BP 176/74
[2020-12-05] MEDS ORDERED: NAPR-695 PO (20:54)
--- NOTE | 2020-12-06 03:05 | RAD ---
Three-view left knee dated 12/05/2020. No comparison available. CLINICAL INDICATION: Pain. FINDINGS: 3 views left knee show normal bony alignment. No displaced fracture. Mild tricompartmental hypertroph ic change. Small joint effusion. No loose body. There is vascular calcinosis. IMPRESSION: 1. No acute radiographic abnormality. 2. Mild tricompartmental DJD. 3. Suspected small joint effusion. If there is clinical concern for occult fracture or internal deran gement, MRI would better evaluate. Electronically signed by: Vamshi Ayala MD (12/06/2020 3:03 AM) [email or web address]
== END 2020-12-05 21:27 | disposition home or self-care (01) ==
LOC: ER 19:44
DX: M25.562 Pain in left knee (principal); G89.29 Other chronic pain; M19.90 Unspecified osteoarthritis, unspecified site; F41.9 Anxiety disorder, unspecified; J45.909 Unspecified asthma, uncomplicated; I25.10 Atherosclerotic heart disease of native coronary artery without angina pectoris; F32.9 Major depressive disorder, single episode, unspecified; E11.40 Type 2 diabetes mellitus with diabetic neuropathy, unspecified; I10 Essential (primary) hypertension; F20.9 Schizophrenia, unspecified; F17.200 Nicotine dependence, unspecified, uncomplicated; E66.01 Morbid (severe) obesity due to excess calories; Z68.41 Body mass index [BMI] 40.0-44.9, adult; Z88.0 Allergy status to penicillin; Z88.5 Allergy status to narcotic agent; Z91.030 Bee allergy status
CPT/HCPCS: 29505; 73562; 96372; 99283; J1170